=== PATIENT | female | born 1950 | race Caucasian/White ===

== ENCOUNTER 2020-06-22 22:09 | Inpatient (IN) | payer MEDICARE ==
[~2020-06-22] VITALS: Ht 152.4 cm; Wt 75.3 kg
[2020-06-22] MEDS ORDERED: METF-960 PO (22:18)
[2020-06-22] MEDS ORDERED: ACETAMINOPHEN 500 MG TABLET ONE (22:33)
[2020-06-22 22:59] LABS: COVID AG,FIA SOURCE NASOPHARYNGEAL
[2020-06-22] MEDS ORDERED: ACETAMINOPHEN 500 MG TABLET PO ONE (23:00)
[2020-06-22 23:10] LABS: BASOPHILS % (AUTO) 0.2 % (0.0-2.0); EOSINOPHILS % (AUTO) 0.1 % (1.0-6.0); HEMATOCRIT 38.8 % (36-46); HEMOGLOBIN 12.9 g/dL (12.0-16.0); LYMPHOCYTES # (AUTO) 1.2 K/uL (1.0-4.8); LYMPHOCYTES % (AUTO) 22.6 % (22.0-44.0); MEAN CORPUSCULAR HGB CONC 33.3 G/dL (31.0-37.0); MEAN CORPUSCULAR VOLUME 90 fL (80-100); MONOCYTES # (AUTO) 0.6 K/uL (0.1-1.0); MONOCYTES % (AUTO) 11.1 % (2.0-9.0); NEUTROPHILS # (AUTO) 3.5 K/uL (1.8-7.7); PLATELET COUNT (AUTO) 124 K/uL (150-450); RED BLOOD CELL COUNT(AUTO) 4.31 MIL/uL (4.00-5.20); RED CELL DISTRIBUTION WIDTH 13.4 % (11.5-14.5)
[2020-06-22 23:28] LABS: LACTIC ACID 1.5 mmol/L (0.4-2.0)
[2020-06-22 23:49] LABS: D-DIMER 0.78 mg/L FEU (0.00-0.50); PROTHROMBIN TIME 10.8 SEC (9.4-11.6)
[2020-06-23] MEDS ORDERED: PIPERACILLIN SODIUM/TAZOBACTAM 2.25 GM in DEXTROSE 5%-WATER 50 ML IV SCH (00:15)
[2020-06-23 00:20] LABS: ANION GAP 12 mmol/L (8-16); CALCIUM, TOTAL 8.6 mg/dL (8.8-10.5); CARBON DIOXIDE 25 mmol/L (22-29); CHLORIDE 107 mmol/L (98-107); CREATININE 0.72 mg/dL (0.60-1.30); GLOMERULAR FILTR. RATE CALC > 60 mL/min (>60); GLUCOSE,RANDOM 154 mg/dL (70-110); POTASSIUM 3.6 mmol/L (3.5-5.1); SODIUM SERUM 144 mmol/L (136-145); UREA NITROGEN, BLOOD 15 mg/dL (7-18)
[2020-06-23 00:25] LABS: ALANINE AMINOTRANSFERASE 37 U/L (12-78); ALBUMIN 2.9 g/dL (3.4-5.0); ALKALINE PHOSPHATASE 62 U/L (46-116); ASPARTATE AMINOTRANSFERASE 43 U/L (15-37); BILIRUBIN,TOTAL 0.4 mg/dL (0.1-1.0); LIPASE 105 U/L (73-393); TOTAL PROTEIN, SERUM 7.4 g/dL (6.4-8.2)
[2020-06-23 00:50] LABS: FERRITIN 998 ng/mL (8-252); LACTATE DEHYDROGENASE 375 U/L (81-234)
[2020-06-23] MEDS ORDERED: VANCOMYCIN HCL 1.25 GM in DEXTROSE 5%-WATER 250 ML IV ONE (01:00)
[2020-06-23 05:38] VITALS: BP 139/69
[2020-06-23] MEDS ORDERED: PIPERACILLIN/TAZO 3.375 GM/D5W 50 ML IV SCH (06:00)
[2020-06-23 06:35] VITALS: BP 134/69
[2020-06-23 07:30] VITALS: BP 120/72
[2020-06-23] MEDS ORDERED: SODIUM CHLORIDE 0.9% 500 ML IV ONE (07:56)
[2020-06-23] MEDS ORDERED: VANCOMYCIN HCL 1.25 GM in DEXTROSE 5%-WATER 250 ML IV SCH (08:00)
[2020-06-23 09:22] LABS: BASOPHILS % (AUTO) 0.3 % (0.0-2.0); EOSINOPHILS % (AUTO) 0 % (1.0-6.0); HEMATOCRIT 39.6 % (36-46); HEMOGLOBIN 13.2 g/dL (12.0-16.0); LYMPHOCYTES # (AUTO) 1.6 K/uL (1.0-4.8); LYMPHOCYTES % (AUTO) 24.2 % (22.0-44.0); MEAN CORPUSCULAR HEMOGLOBIN 30.5 pg (26.0-34.0); MEAN CORPUSCULAR HGB CONC 33.4 G/dL (31.0-37.0); MEAN CORPUSCULAR VOLUME 92 fL (80-100); MONOCYTES # (AUTO) 0.5 K/uL (0.1-1.0); MONOCYTES % (AUTO) 7.8 % (2.0-9.0); NEUTROPHILS # (AUTO) 4.6 K/uL (1.8-7.7); NEUTROPHILS % (AUTO) 67.7 % (40.0-70.0); PLATELET COUNT (AUTO) 134 K/uL (150-450); RED BLOOD CELL COUNT(AUTO) 4.33 MIL/uL (4.00-5.20); RED CELL DISTRIBUTION WIDTH 13.7 % (11.5-14.5)
[2020-06-23 09:56] LABS: ALANINE AMINOTRANSFERASE 35 U/L (12-78); ALBUMIN 2.7 g/dL (3.4-5.0); ALKALINE PHOSPHATASE 56 U/L (46-116); ANION GAP 7 mmol/L (8-16); ASPARTATE AMINOTRANSFERASE 38 U/L (15-37); BILIRUBIN,TOTAL 0.5 mg/dL (0.1-1.0); C-REACTIVE PROTEIN QUANT 5.35 mg/dL (0.00-0.30); CALCIUM, TOTAL 8.1 mg/dL (8.8-10.5); CARBON DIOXIDE 30 mmol/L (22-29); CHLORIDE 103 mmol/L (98-107); CREATININE 0.74 mg/dL (0.60-1.30); FERRITIN 983 ng/mL (8-252); GLOMERULAR FILTR. RATE CALC > 60 mL/min (>60); GLUCOSE,RANDOM 156 mg/dL (70-110); POTASSIUM 3.9 mmol/L (3.5-5.1); SODIUM SERUM 140 mmol/L (136-145); TOTAL PROTEIN, SERUM 7.1 g/dL (6.4-8.2); UREA NITROGEN, BLOOD 13 mg/dL (7-18)
[2020-06-23 11:30] VITALS: BP 118/71
[2020-06-23] MEDS ORDERED: ACETAMINOPHEN 325 MG TABLET PO ONE (12:15)
[2020-06-23] MEDS ORDERED: ONDANSETRON HCL 4 MG/2 ML VIAL IVP PRN (14:15)
[2020-06-23] MEDS ORDERED: MAGNESIUM HYDROXIDE SUSPENSION 30 ML UDCUP PO PRN (14:15)
[2020-06-23] MEDS ORDERED: DEXTROSE 50%-WATER 25 GM/50 ML SYRINGE IVP PRN (14:15)
[2020-06-23] MEDS ORDERED: ZOLPIDEM TARTRATE 5 MG TABLET PO PRN (14:15)
[2020-06-23] MEDS ORDERED: BISACODYL 10 MG RECTAL RECTAL SUPPOSITORY PR PRN (14:15)
[2020-06-23] MEDS ORDERED: DEXAMETHASONE 4 MG TABLET PO ONE (14:15)
[2020-06-23] MEDS ORDERED: REMDESIVIR 200 MG in SODIUM CHLORIDE 0.9% 250 ML IV ONE (15:00)
[2020-06-23 15:30] VITALS: BP 122/70
[2020-06-23] MEDS: ACETAMINOPHEN 325 MG TABLET PO PRN (16:54)
[2020-06-23] MEDS: HEPARIN SODIUM,PORCINE 5,000 UNITS/ML VIAL SQ SCH (16:58)
[2020-06-23] MEDS: INSULIN LISPRO 100 UNITS/ML SQ PRN ×2 (17:15→20:32)
[2020-06-23] MEDS: CefTRIAXone 1 GM/DEXTROSE 50 ML IV SCH (17:58)
[2020-06-23] MEDS: AZITHROMYCIN 500 MG/NS 250 ML IV SCH (18:40)
[2020-06-23 20:20] VITALS: BP 105/66
[2020-06-24 00:15] VITALS: BP 94/55
[2020-06-24] MEDS: HEPARIN SODIUM,PORCINE 5,000 UNITS/ML VIAL SQ SCH ×4 (01:49→23:34)
[2020-06-24] MEDS: INSULIN LISPRO 100 UNITS/ML SQ PRN ×4 (05:33→20:34)
[2020-06-24 06:16] LABS: EOSINOPHILS % (AUTO) 0 % (1.0-6.0); HEMATOCRIT 37.7 % (36-46); HEMOGLOBIN 12.6 g/dL (12.0-16.0); LYMPHOCYTES # (AUTO) 0.9 K/uL (1.0-4.8); LYMPHOCYTES % (AUTO) 10.2 % (22.0-44.0); MEAN CORPUSCULAR HEMOGLOBIN 30.6 pg (26.0-34.0); MEAN CORPUSCULAR HGB CONC 33.5 G/dL (31.0-37.0); MEAN CORPUSCULAR VOLUME 91 fL (80-100); MONOCYTES # (AUTO) 0.4 K/uL (0.1-1.0); MONOCYTES % (AUTO) 4.7 % (2.0-9.0); NEUTROPHILS # (AUTO) 7.7 K/uL (1.8-7.7); NEUTROPHILS % (AUTO) 85.1 % (40.0-70.0); PLATELET COUNT (AUTO) 139 K/uL (150-450); RED BLOOD CELL COUNT(AUTO) 4.13 MIL/uL (4.00-5.20); RED CELL DISTRIBUTION WIDTH 13.6 % (11.5-14.5)
[2020-06-24 07:20] LABS: ALANINE AMINOTRANSFERASE 27 U/L (12-78); ALBUMIN 2.3 g/dL (3.4-5.0); ALKALINE PHOSPHATASE 49 U/L (46-116); ANION GAP 9 mmol/L (8-16); ASPARTATE AMINOTRANSFERASE 33 U/L (15-37); BILIRUBIN,TOTAL 0.4 mg/dL (0.1-1.0); C-REACTIVE PROTEIN QUANT 9.13 mg/dL (0.00-0.30); CALCIUM, TOTAL 8.3 mg/dL (8.8-10.5); CARBON DIOXIDE 27 mmol/L (22-29); CHLORIDE 103 mmol/L (98-107); FERRITIN 883 ng/mL (8-252); GLOMERULAR FILTR. RATE CALC > 60 mL/min (>60); GLUCOSE,RANDOM 202 mg/dL (70-110); POTASSIUM 3.6 mmol/L (3.5-5.1); SODIUM SERUM 139 mmol/L (136-145); TOTAL PROTEIN, SERUM 6.4 g/dL (6.4-8.2); UREA NITROGEN, BLOOD 17 mg/dL (7-18)
[2020-06-24 08:29] VITALS: BP 99/60
[2020-06-24] MEDS: DEXAMETHASONE 4 MG TABLET PO SCH (09:06)
[2020-06-24 11:29] VITALS: BP 101/60
[2020-06-24] MEDS: REMDESIVIR 100 MG in SODIUM CHLORIDE 0.9% 250 ML IV SCH (14:38)
[2020-06-24] MEDS: CefTRIAXone 1 GM/DEXTROSE 50 ML IV SCH (15:51)
[2020-06-24 16:15] VITALS: BP 117/63
[2020-06-24] MEDS: AZITHROMYCIN 500 MG/NS 250 ML IV SCH (16:29)
[2020-06-24 19:53] VITALS: BP 114/61
[2020-06-24 20:50] LABS: GLUCOMETER DEV NAME(LOC) 5N.1B; GLUCOSE,POINT OF CARE 147 MG/DL (70-110)
[2020-06-24 20:51] LABS: GLUCOMETER DEV NAME(LOC) 5N.1B; GLUCOSE,POINT OF CARE 201 MG/DL (70-110)
[2020-06-24 20:51] LABS: GLUCOMETER DEV NAME(LOC) 5N.1B; GLUCOSE,POINT OF CARE 186 MG/DL (70-110)
[2020-06-24 20:51] LABS: GLUCOMETER DEV NAME(LOC) 5N.1B; GLUCOSE,POINT OF CARE 203 MG/DL (70-110)
[2020-06-24 20:51] LABS: GLUCOMETER DEV NAME(LOC) 5N.1B; GLUCOSE,POINT OF CARE 215 MG/DL (70-110)
[2020-06-24 20:51] LABS: GLUCOMETER DEV NAME(LOC) 5N.1B; GLUCOSE,POINT OF CARE 161 MG/DL (70-110)
[2020-06-25] VITALS (7 sets, daily range): BP systolic 102–135; BP diastolic 62–81
[2020-06-25 03:52] LABS: GLUCOMETER DEV NAME(LOC) 5N.3; GLUCOSE,POINT OF CARE 162 MG/DL (70-110)
[2020-06-25 03:52] LABS: GLUCOMETER DEV NAME(LOC) 5N.3; GLUCOSE,POINT OF CARE 196 MG/DL (70-110)
[2020-06-25 05:40] LABS: GLUCOMETER DEV NAME(LOC) 5N.3; GLUCOSE,POINT OF CARE 211 MG/DL (70-110)
[2020-06-25] MEDS: INSULIN LISPRO 100 UNITS/ML SQ PRN ×3 (06:03→21:39)
[2020-06-25 06:06] LABS: BASOPHILS % (AUTO) 0.1 % (0.0-2.0); EOSINOPHILS % (AUTO) 0 % (1.0-6.0); HEMATOCRIT 38.7 % (36-46); HEMOGLOBIN 12.9 g/dL (12.0-16.0); LYMPHOCYTES # (AUTO) 1.3 K/uL (1.0-4.8); LYMPHOCYTES % (AUTO) 12.9 % (22.0-44.0); MEAN CORPUSCULAR HEMOGLOBIN 30.2 pg (26.0-34.0); MEAN CORPUSCULAR HGB CONC 33.3 G/dL (31.0-37.0); MEAN CORPUSCULAR VOLUME 91 fL (80-100); MONOCYTES # (AUTO) 0.9 K/uL (0.1-1.0); MONOCYTES % (AUTO) 9.1 % (2.0-9.0); NEUTROPHILS # (AUTO) 7.7 K/uL (1.8-7.7); NEUTROPHILS % (AUTO) 77.9 % (40.0-70.0); PLATELET COUNT (AUTO) 190 K/uL (150-450); RED BLOOD CELL COUNT(AUTO) 4.27 MIL/uL (4.00-5.20); RED CELL DISTRIBUTION WIDTH 13.7 % (11.5-14.5)
[2020-06-25 07:10] LABS: ALANINE AMINOTRANSFERASE 25 U/L (12-78); ALBUMIN 2.2 g/dL (3.4-5.0); ALKALINE PHOSPHATASE 50 U/L (46-116); ANION GAP 8 mmol/L (8-16); ASPARTATE AMINOTRANSFERASE 35 U/L (15-37); BILIRUBIN,TOTAL 0.4 mg/dL (0.1-1.0); C-REACTIVE PROTEIN QUANT 5.03 mg/dL (0.00-0.30); CALCIUM, TOTAL 8.7 mg/dL (8.8-10.5); CARBON DIOXIDE 29 mmol/L (22-29); CHLORIDE 106 mmol/L (98-107); CREATININE 0.82 mg/dL (0.60-1.30); GLOMERULAR FILTR. RATE CALC > 60 mL/min (>60); GLUCOSE,RANDOM 215 mg/dL (70-110); POTASSIUM 3.6 mmol/L (3.5-5.1); SODIUM SERUM 143 mmol/L (136-145); TOTAL PROTEIN, SERUM 6.2 g/dL (6.4-8.2); UREA NITROGEN, BLOOD 25 mg/dL (7-18)
[2020-06-25 07:44] LABS: FERRITIN 1235 ng/mL (8-252)
[2020-06-25] MEDS: HEPARIN SODIUM,PORCINE 5,000 UNITS/ML VIAL SQ SCH ×3 (08:00→23:59)
[2020-06-25] MEDS: DEXAMETHASONE 4 MG TABLET PO SCH (10:02)
[2020-06-25] MEDS: REMDESIVIR 100 MG in SODIUM CHLORIDE 0.9% 250 ML IV SCH (15:11)
[2020-06-25] MEDS: CefTRIAXone 1 GM/DEXTROSE 50 ML IV SCH (16:54)
[2020-06-25] MEDS: AZITHROMYCIN 500 MG/NS 250 ML IV SCH (17:35)
[2020-06-25] MEDS ORDERED: BENZONATATE 100 MG CAPSULE PO PRN (21:00)
[2020-06-25] MEDS: GuaiFENesin/CODEINE [SUGAR FREE] 200-20MG/10 ML SYRUP UDCUP PO PRN (21:36)
[2020-06-25 23:28] LABS: GLUCOMETER DEV NAME(LOC) 5N.3; GLUCOSE,POINT OF CARE 201 MG/DL (70-110)
[2020-06-25 23:29] LABS: GLUCOMETER DEV NAME(LOC) 5N.3; GLUCOSE,POINT OF CARE 232 MG/DL (70-110)
[2020-06-25 23:29] LABS: GLUCOMETER DEV NAME(LOC) 5N.1B; GLUCOSE,POINT OF CARE 227 MG/DL (70-110)
[2020-06-26] VITALS (10 sets, daily range): BP systolic 127–147; BP diastolic 62–86
[2020-06-26 05:48] LABS: EOSINOPHILS % (AUTO) 0 % (1.0-6.0); HEMATOCRIT 42.2 % (36-46); HEMOGLOBIN 13.9 g/dL (12.0-16.0); LYMPHOCYTES # (AUTO) 1.4 K/uL (1.0-4.8); LYMPHOCYTES % (AUTO) 12.8 % (22.0-44.0); MEAN CORPUSCULAR HEMOGLOBIN 30.2 pg (26.0-34.0); MEAN CORPUSCULAR HGB CONC 32.8 G/dL (31.0-37.0); MEAN CORPUSCULAR VOLUME 92 fL (80-100); MONOCYTES # (AUTO) 1.1 K/uL (0.1-1.0); MONOCYTES % (AUTO) 10.2 % (2.0-9.0); NEUTROPHILS # (AUTO) 8.3 K/uL (1.8-7.7); PLATELET COUNT (AUTO) 247 K/uL (150-450); RED CELL DISTRIBUTION WIDTH 13.8 % (11.5-14.5)
[2020-06-26 06:23] LABS: ALANINE AMINOTRANSFERASE 29 U/L (12-78); ALBUMIN 2.3 g/dL (3.4-5.0); ALKALINE PHOSPHATASE 56 U/L (46-116); ANION GAP 10 mmol/L (8-16); ASPARTATE AMINOTRANSFERASE 38 U/L (15-37); BILIRUBIN,TOTAL 0.5 mg/dL (0.1-1.0); C-REACTIVE PROTEIN QUANT 2.69 mg/dL (0.00-0.30); CALCIUM, TOTAL 8.7 mg/dL (8.8-10.5); CARBON DIOXIDE 27 mmol/L (22-29); CHLORIDE 110 mmol/L (98-107); CREATININE 0.72 mg/dL (0.60-1.30); FERRITIN 973 ng/mL (8-252); GLOMERULAR FILTR. RATE CALC > 60 mL/min (>60); GLUCOSE,RANDOM 177 mg/dL (70-110); POTASSIUM 3.6 mmol/L (3.5-5.1); SODIUM SERUM 147 mmol/L (136-145); TOTAL PROTEIN, SERUM 6.5 g/dL (6.4-8.2); UREA NITROGEN, BLOOD 24 mg/dL (7-18)
[2020-06-26 07:04] LABS: GLUCOMETER DEV NAME(LOC) 5N.1B; GLUCOSE,POINT OF CARE 173 MG/DL (70-110)
[2020-06-26] MEDS: DEXAMETHASONE 4 MG TABLET PO SCH (07:37)
[2020-06-26] MEDS: GuaiFENesin/CODEINE [SUGAR FREE] 200-20MG/10 ML SYRUP UDCUP PO PRN (07:37)
[2020-06-26] MEDS: HEPARIN SODIUM,PORCINE 5,000 UNITS/ML VIAL SQ SCH ×3 (07:37→23:29)
[2020-06-26 09:06] LABS: ABG A-A DIFF O2 617.5 mmHg (10-20.0); ABG BASE EXCESS 3.6 mmol/L (-2.0-3.0); ABG CARBOXYHEMOGLOBIN 0.8 % (0.0-1.5); ABG HCO3 27.3 mmol/L (22.0-26.0); ABG METHEMOGLOBIN 0.3 % (0.0-1.5); ABG OXYGEN CONTENT 18.3 mL/dL (15.0-23.0); ABG OXYGEN SATURATION 91.1 % (95.0-98.0); ABG OXYHEMOGLOBIN 90.1 % (94.0-100.0); ABG PCO2 40 mmHg (35-45); ABG PH 7.453 (7.35-7.450); ABG TOTAL HEMOGLOBIN 14.5 G/dL (12.0-18.0); PO2, ARTERIAL BG 55.4 mmHg (75.0-83.0); SOURCE, BLOOD GAS ARTERIAL; TEMPERATURE, FAHRENHEIT, BG 98.5 FAHREN (96.0-98.6)
[2020-06-26 09:07] LABS: O2 DEVICE,BLOOD GAS CANNULA (ROOM AIR); SITE, BLOOD GAS LFT RADIAL
[2020-06-26 13:58] LABS: GLUCOMETER DEV NAME(LOC) 5N.1B; GLUCOSE,POINT OF CARE 203 MG/DL (70-110)
[2020-06-26] MEDS: REMDESIVIR 100 MG in SODIUM CHLORIDE 0.9% 250 ML IV SCH (15:29)
[2020-06-26] MEDS: CefTRIAXone 1 GM/DEXTROSE 50 ML IV SCH (16:35)
[2020-06-26] MEDS: INSULIN LISPRO 100 UNITS/ML SQ PRN ×2 (17:13→20:42)
[2020-06-26] MEDS: AZITHROMYCIN 500 MG/NS 250 ML IV SCH (17:35)
[2020-06-26] MEDS ORDERED: LOSA25TA21 PO (19:07)
[2020-06-26] MEDS ORDERED: ATOR20TA65 PO (19:07)
[2020-06-26] MEDS: ASCORBIC ACID 500 MG TABLET PO SCH (20:27)
[2020-06-26] MEDS: CHOLECALCIFEROL (VIT D3) 1,000 UNITS [25 MCG] TABLET PO SCH (20:27)
[2020-06-26] MEDS: ZINC SULFATE 220 MG CAPSULE PO SCH (20:27)
[2020-06-26] MEDS: FAMOTIDINE 10 MG/ML 2 ML VIAL IVP SCH (20:28)
[2020-06-26 20:55] LABS: GLUCOMETER DEV NAME(LOC) AHU.; GLUCOSE,POINT OF CARE 261 MG/DL (70-110)
[2020-06-27] VITALS (9 sets, daily range): BP systolic 125–140; BP diastolic 50–86
[2020-06-27] MEDS ORDERED: INFLUENZA VIRUS VACCINE QVS 2020-21 (6MO+)/PF 60 MCG/0.5 ML SYRINGE IM ONE (03:00)
[2020-06-27] MEDS: INSULIN LISPRO 100 UNITS/ML SQ PRN ×4 (06:28→23:00)
[2020-06-27 06:38] LABS: GLUCOMETER DEV NAME(LOC) AHU.; GLUCOSE,POINT OF CARE 232 MG/DL (70-110)
[2020-06-27 06:47] LABS: ALANINE AMINOTRANSFERASE 30 U/L (12-78); ALBUMIN 2.2 g/dL (3.4-5.0); ALKALINE PHOSPHATASE 60 U/L (46-116); ANION GAP 10 mmol/L (8-16); ASPARTATE AMINOTRANSFERASE 32 U/L (15-37); CALCIUM, TOTAL 8.9 mg/dL (8.8-10.5); CARBON DIOXIDE 26 mmol/L (22-29); CHLORIDE 109 mmol/L (98-107); CREATININE 0.65 mg/dL (0.60-1.30); GLOMERULAR FILTR. RATE CALC > 60 mL/min (>60); GLUCOSE,RANDOM 251 mg/dL (70-110); POTASSIUM 3.8 mmol/L (3.5-5.1); SODIUM SERUM 145 mmol/L (136-145); TOTAL PROTEIN, SERUM 6.6 g/dL (6.4-8.2); UREA NITROGEN, BLOOD 28 mg/dL (7-18)
[2020-06-27 06:57] LABS: BILIRUBIN,TOTAL 0.6 mg/dL (0.1-1.0)
[2020-06-27 07:21] LABS: GLUCOMETER DEV NAME(LOC) 5N.1B; GLUCOSE,POINT OF CARE 270 MG/DL (70-110)
[2020-06-27] MEDS: ZINC SULFATE 220 MG CAPSULE PO SCH ×2 (08:00→20:52)
[2020-06-27] MEDS: HEPARIN SODIUM,PORCINE 5,000 UNITS/ML VIAL SQ SCH ×2 (08:00→16:09)
[2020-06-27] MEDS: FAMOTIDINE 10 MG/ML 2 ML VIAL IVP SCH ×2 (08:00→20:53)
[2020-06-27] MEDS: ASCORBIC ACID 500 MG TABLET PO SCH ×2 (08:01→20:52)
[2020-06-27] MEDS: CHOLECALCIFEROL (VIT D3) 1,000 UNITS [25 MCG] TABLET PO SCH (08:01)
[2020-06-27] MEDS: DEXAMETHASONE 4 MG TABLET PO SCH (08:01)
[2020-06-27 12:27] LABS: GLUCOMETER DEV NAME(LOC) AHU.; GLUCOSE,POINT OF CARE 251 MG/DL (70-110)
[2020-06-27] MEDS: DEXMEDETOMIDINE HCL 400 MCG in SODIUM CHLORIDE 0.9% 96 ML IV PRN (12:28)
[2020-06-27] MEDS: REMDESIVIR 100 MG in SODIUM CHLORIDE 0.9% 250 ML IV SCH (15:10)
[2020-06-27] MEDS: CefTRIAXone 1 GM/DEXTROSE 50 ML IV SCH (16:08)
[2020-06-27] MEDS: AZITHROMYCIN 500 MG/NS 250 ML IV SCH (17:15)
[2020-06-27 18:48] LABS: GLUCOMETER DEV NAME(LOC) AHU.; GLUCOSE,POINT OF CARE 290 MG/DL (70-110)
[2020-06-27 22:34] LABS: GLUCOMETER DEV NAME(LOC) AHU.; GLUCOSE,POINT OF CARE 237 MG/DL (70-110)
[2020-06-28] VITALS (17 sets, daily range): BP systolic 116–158; BP diastolic 48–75
[2020-06-28] MEDS: HEPARIN SODIUM,PORCINE 5,000 UNITS/ML VIAL SQ SCH ×3 (00:16→17:46)
[2020-06-28 06:37] LABS: GLUCOMETER DEV NAME(LOC) AHU.; GLUCOSE,POINT OF CARE 201 MG/DL (70-110)
[2020-06-28] MEDS: INSULIN LISPRO 100 UNITS/ML SQ PRN ×3 (06:42→17:59)
[2020-06-28 07:47] LABS: ABG A-A DIFF O2 629.7 mmHg (10-20.0); ABG BASE EXCESS -0.5 mmol/L (-2.0-3.0); ABG CARBOXYHEMOGLOBIN 0.4 % (0.0-1.5); ABG HCO3 24.5 mmol/L (22.0-26.0); ABG METHEMOGLOBIN 0.2 % (0.0-1.5); ABG OXYGEN CONTENT 18.6 mL/dL (15.0-23.0); ABG OXYGEN SATURATION 87.7 % (95.0-98.0); ABG OXYHEMOGLOBIN 87.2 % (94.0-100.0); ABG PCO2 33 mmHg (35-45); ABG PH 7.469 (7.35-7.450); ABG TOTAL HEMOGLOBIN 15.2 G/dL (12.0-18.0); PO2, ARTERIAL BG 50.6 mmHg (75.0-83.0); SOURCE, BLOOD GAS ARTERIAL; TEMPERATURE, FAHRENHEIT, BG 98.6 FAHREN (96.0-98.6)
[2020-06-28 07:48] LABS: SITE, BLOOD GAS LFT RADIAL
[2020-06-28 07:49] LABS: O2 DEVICE,BLOOD GAS HI FL CANNULA (ROOM AIR)
[2020-06-28] MEDS: DEXAMETHASONE 4 MG TABLET PO SCH (08:18)
[2020-06-28] MEDS: FAMOTIDINE 10 MG/ML 2 ML VIAL IVP SCH ×2 (08:18→22:02)
[2020-06-28] MEDS: ZINC SULFATE 220 MG CAPSULE PO SCH ×2 (08:19→22:03)
[2020-06-28] MEDS: MULTIVITAMINS WITH MINERALS, THERAPEUTIC TABLET PO SCH (08:19)
[2020-06-28] MEDS: CHOLECALCIFEROL (VIT D3) 1,000 UNITS [25 MCG] TABLET PO SCH (08:19)
[2020-06-28] MEDS: ASCORBIC ACID 500 MG TABLET PO SCH ×2 (08:20→22:03)
[2020-06-28 10:42] LABS: BASOPHILS % (AUTO) 0.3 % (0.0-2.0); EOSINOPHILS % (AUTO) 0 % (1.0-6.0); HEMATOCRIT 42.4 % (36-46); HEMOGLOBIN 14.1 g/dL (12.0-16.0); LYMPHOCYTES # (AUTO) 0.6 K/uL (1.0-4.8); LYMPHOCYTES % (AUTO) 3.6 % (22.0-44.0); MEAN CORPUSCULAR HEMOGLOBIN 30.1 pg (26.0-34.0); MEAN CORPUSCULAR HGB CONC 33.2 G/dL (31.0-37.0); MEAN CORPUSCULAR VOLUME 91 fL (80-100); MONOCYTES # (AUTO) 1.3 K/uL (0.1-1.0); MONOCYTES % (AUTO) 8.1 % (2.0-9.0); NEUTROPHILS # (AUTO) 14.1 K/uL (1.8-7.7); PLATELET COUNT (AUTO) 257 K/uL (150-450); RED BLOOD CELL COUNT(AUTO) 4.68 MIL/uL (4.00-5.20); RED CELL DISTRIBUTION WIDTH 14.1 % (11.5-14.5)
[2020-06-28 11:00] LABS: ANION GAP 8 mmol/L (8-16); CALCIUM, TOTAL 9.3 mg/dL (8.8-10.5); CARBON DIOXIDE 27 mmol/L (22-29); CHLORIDE 114 mmol/L (98-107); GLOMERULAR FILTR. RATE CALC > 60 mL/min (>60); GLUCOSE,RANDOM 186 mg/dL (70-110); POTASSIUM 3.8 mmol/L (3.5-5.1); SODIUM SERUM 149 mmol/L (136-145); UREA NITROGEN, BLOOD 25 mg/dL (7-18)
[2020-06-28 11:04] LABS: ALANINE AMINOTRANSFERASE 27 U/L (12-78); ALBUMIN 2.2 g/dL (3.4-5.0); ALKALINE PHOSPHATASE 72 U/L (46-116); ASPARTATE AMINOTRANSFERASE 42 U/L (15-37); BILIRUBIN,TOTAL 0.8 mg/dL (0.1-1.0); TOTAL PROTEIN, SERUM 6.6 g/dL (6.4-8.2)
[2020-06-28] MEDS: DEXMEDETOMIDINE HCL 400 MCG in SODIUM CHLORIDE 0.9% 96 ML IV PRN (12:29)
[2020-06-28 12:55] LABS: GLUCOMETER DEV NAME(LOC) AHU.; GLUCOSE,POINT OF CARE 213 MG/DL (70-110)
[2020-06-28] MEDS: CefTRIAXone 1 GM/DEXTROSE 50 ML IV SCH (17:45)
[2020-06-28] MEDS: AZITHROMYCIN 500 MG/NS 250 ML IV SCH (17:46)
[2020-06-28 17:47] LABS: GLUCOMETER DEV NAME(LOC) AHU.; GLUCOSE,POINT OF CARE 305 MG/DL (70-110)
[2020-06-28 22:08] LABS: GLUCOMETER DEV NAME(LOC) AHU.; GLUCOSE,POINT OF CARE 237 MG/DL (70-110)
[2020-06-28] MEDS ORDERED: RAPID SEQUENCE KIT [RSI] 1 EACH KIT MISC ONE (22:33)
[2020-06-28] MEDS: PROPOFOL 1000 MG/ISO-OSM 100 ML IV PRN (23:37)
[2020-06-29] VITALS (22 sets, daily range): BP systolic 110–181; BP diastolic 48–92
[2020-06-29] MEDS: HEPARIN SODIUM,PORCINE 5,000 UNITS/ML VIAL SQ SCH ×4 (00:47→23:45)
[2020-06-29] MEDS: INSULIN LISPRO 100 UNITS/ML SQ PRN ×4 (00:51→18:39)
[2020-06-29 01:11] LABS: GLUCOMETER DEV NAME(LOC) AHU.; GLUCOSE,POINT OF CARE 240 MG/DL (70-110)
[2020-06-29 01:12] LABS: ABG A-A DIFF O2 291.5 mmHg (10-20.0); ABG CARBOXYHEMOGLOBIN 0.2 % (0.0-1.5); ABG HCO3 20.2 mmol/L (22.0-26.0); ABG METHEMOGLOBIN 0.5 % (0.0-1.5); ABG OXYGEN CONTENT 23.1 mL/dL (15.0-23.0); ABG OXYGEN SATURATION 99.3 % (95.0-98.0); ABG OXYHEMOGLOBIN 98.6 % (94.0-100.0); ABG TOTAL HEMOGLOBIN 16.1 G/dL (12.0-18.0); PO2, ARTERIAL BG 318.5 mmHg (75.0-83.0); SOURCE, BLOOD GAS ARTERIAL; TEMPERATURE, FAHRENHEIT, BG 98.6 FAHREN (96.0-98.6)
[2020-06-29 01:13] LABS: ABG PCO2 103 mmHg (35-45); ABG PH 7.058 (7.35-7.450); O2 DEVICE,BLOOD GAS VENTILATOR (ROOM AIR); SITE, BLOOD GAS ARTERIAL LINE; VENT MODE, BG Press. Control Vent (ROOM AIR); VT, ABG 321 ml
[2020-06-29 01:14] LABS: PEEP,BG 10 cm H2O
[2020-06-29] MEDS: NOREPINEPHRINE 4 MG/D5%-WATER 250 ML IV PRN (03:20)
[2020-06-29 03:23] LABS: ABG A-A DIFF O2 606.9 mmHg (10-20.0); ABG BASE EXCESS -2.4 mmol/L (-2.0-3.0); ABG CARBOXYHEMOGLOBIN 0.9 % (0.0-1.5); ABG HCO3 22.5 mmol/L (22.0-26.0); ABG METHEMOGLOBIN 0.3 % (0.0-1.5); ABG OXYGEN SATURATION 92.9 % (95.0-98.0); ABG OXYHEMOGLOBIN 91.8 % (94.0-100.0); ABG PCO2 41 mmHg (35-45); ABG PH 7.368 (7.35-7.450); ABG TOTAL HEMOGLOBIN 14.7 G/dL (12.0-18.0); PO2, ARTERIAL BG 65.4 mmHg (75.0-83.0); SOURCE, BLOOD GAS ARTERIAL; TEMPERATURE, FAHRENHEIT, BG 98.6 FAHREN (96.0-98.6)
[2020-06-29 03:24] LABS: SITE, BLOOD GAS ARTERIAL LINE
[2020-06-29 03:25] LABS: O2 DEVICE,BLOOD GAS VENTILATOR (ROOM AIR); PEEP,BG 5 cm H2O; VENT MODE, BG Press. Control Vent (ROOM AIR); VT, ABG 368 ml
[2020-06-29] MEDS: FentaNYL CIT 1000MCG/D5%-WATER 100 ML IV PRN ×3 (03:35→21:03)
[2020-06-29 05:31] LABS: BASOPHILS % (AUTO) 0.9 % (0.0-2.0); EOSINOPHILS % (AUTO) 0 % (1.0-6.0); HEMATOCRIT 41.8 % (36-46); HEMOGLOBIN 13.6 g/dL (12.0-16.0); MEAN CORPUSCULAR HGB CONC 32.6 G/dL (31.0-37.0); MEAN CORPUSCULAR VOLUME 92 fL (80-100); MONOCYTES # (AUTO) 1.9 K/uL (0.1-1.0); MONOCYTES % (AUTO) 7.1 % (2.0-9.0); NEUTROPHILS # (AUTO) 23.2 K/uL (1.8-7.7); PLATELET COUNT (AUTO) 310 K/uL (150-450); RED BLOOD CELL COUNT(AUTO) 4.54 MIL/uL (4.00-5.20); RED CELL DISTRIBUTION WIDTH 13.9 % (11.5-14.5)
[2020-06-29 05:50] LABS: ALANINE AMINOTRANSFERASE 21 U/L (12-78); ALBUMIN 1.8 g/dL (3.4-5.0); ALKALINE PHOSPHATASE 65 U/L (46-116); ANION GAP 6 mmol/L (8-16); ASPARTATE AMINOTRANSFERASE 27 U/L (15-37); BILIRUBIN,TOTAL 0.7 mg/dL (0.1-1.0); CALCIUM, TOTAL 8.2 mg/dL (8.8-10.5); CARBON DIOXIDE 26 mmol/L (22-29); CHLORIDE 112 mmol/L (98-107); GLOMERULAR FILTR. RATE CALC > 60 mL/min (>60); GLUCOSE,RANDOM 259 mg/dL (70-110); POTASSIUM 4.2 mmol/L (3.5-5.1); SODIUM SERUM 144 mmol/L (136-145); TOTAL PROTEIN, SERUM 5.7 g/dL (6.4-8.2); UREA NITROGEN, BLOOD 30 mg/dL (7-18)
[2020-06-29 06:26] LABS: GLUCOMETER DEV NAME(LOC) AHU.; GLUCOSE,POINT OF CARE 252 MG/DL (70-110)
[2020-06-29] MEDS: PROPOFOL 1000 MG/ISO-OSM 100 ML IV PRN ×2 (06:49→16:51)
[2020-06-29] MEDS: DEXAMETHASONE 4 MG TABLET PO SCH (08:55)
[2020-06-29] MEDS: CHOLECALCIFEROL (VIT D3) 1,000 UNITS [25 MCG] TABLET PO SCH (08:55)
[2020-06-29] MEDS: ZINC SULFATE 220 MG CAPSULE PO SCH ×2 (08:56→21:02)
[2020-06-29] MEDS: ASCORBIC ACID 500 MG TABLET PO SCH ×2 (08:56→21:02)
[2020-06-29] MEDS: MULTIVITAMINS WITH MINERALS, THERAPEUTIC TABLET PO SCH (08:56)
[2020-06-29] MEDS: FAMOTIDINE 10 MG/ML 2 ML VIAL IVP SCH ×2 (08:56→20:19)
[2020-06-29] MEDS ORDERED: SODIUM CHLORIDE 0.9% 250 ML IV ONE (09:29)
[2020-06-29 11:04] LABS: ABG A-A DIFF O2 510.4 mmHg (10-20.0); ABG BASE EXCESS 1.2 mmol/L (-2.0-3.0); ABG CARBOXYHEMOGLOBIN 0.7 % (0.0-1.5); ABG HCO3 24.9 mmol/L (22.0-26.0); ABG METHEMOGLOBIN 0.3 % (0.0-1.5); ABG OXYGEN CONTENT 19.8 mL/dL (15.0-23.0); ABG OXYGEN SATURATION 95.9 % (95.0-98.0); ABG OXYHEMOGLOBIN 94.9 % (94.0-100.0); ABG PCO2 50 mmHg (35-45); ABG PH 7.349 (7.35-7.450); ABG TOTAL HEMOGLOBIN 14.8 G/dL (12.0-18.0); PO2, ARTERIAL BG 80.2 mmHg (75.0-83.0); SOURCE, BLOOD GAS ARTERIAL; TEMPERATURE, FAHRENHEIT, BG 98.6 FAHREN (96.0-98.6)
[2020-06-29 11:22] LABS: O2 DEVICE,BLOOD GAS VENTILATOR (ROOM AIR); SITE, BLOOD GAS ARTERIAL LINE
[2020-06-29 11:23] LABS: INSPIRATORY TIME, BG 0.8 SEC; PEEP,BG 8 cm H2O; SPONTANEOUS VT, BG 316 ml; VENT MODE, BG Press. Control Vent (ROOM AIR)
[2020-06-29 12:22] LABS: GLUCOMETER DEV NAME(LOC) AHU.; GLUCOSE,POINT OF CARE 236 MG/DL (70-110)
[2020-06-29] MEDS: CefTRIAXone 1 GM/DEXTROSE 50 ML IV SCH (16:34)
[2020-06-29] MEDS: AZITHROMYCIN 500 MG/NS 250 ML IV SCH (17:36)
[2020-06-29 17:57] LABS: GLUCOMETER DEV NAME(LOC) AHU.; GLUCOSE,POINT OF CARE 269 MG/DL (70-110)
[2020-06-29 23:19] LABS: GLUCOMETER DEV NAME(LOC) AHU.; GLUCOSE,POINT OF CARE 260 MG/DL (70-110)
[2020-06-30] VITALS (18 sets, daily range): BP systolic 111–161; BP diastolic 49–60
[2020-06-30] MEDS: PROPOFOL 1000 MG/ISO-OSM 100 ML IV PRN ×4 (00:57→22:50)
[2020-06-30] MEDS: INSULIN LISPRO 100 UNITS/ML SQ PRN ×5 (01:45→23:25)
[2020-06-30] MEDS: FentaNYL CIT 1000MCG/D5%-WATER 100 ML IV PRN ×3 (04:52→20:35)
[2020-06-30 06:08] LABS: GLUCOMETER DEV NAME(LOC) AHU.; GLUCOSE,POINT OF CARE 275 MG/DL (70-110)
[2020-06-30 06:09] LABS: BASOPHILS % (AUTO) 0.2 % (0.0-2.0); EOSINOPHILS % (AUTO) 0 % (1.0-6.0); HEMATOCRIT 39.1 % (36-46); LYMPHOCYTES # (AUTO) 0.9 K/uL (1.0-4.8); LYMPHOCYTES % (AUTO) 4.6 % (22.0-44.0); MEAN CORPUSCULAR HGB CONC 33.2 G/dL (31.0-37.0); MEAN CORPUSCULAR VOLUME 90 fL (80-100); MONOCYTES # (AUTO) 1.2 K/uL (0.1-1.0); MONOCYTES % (AUTO) 5.9 % (2.0-9.0); NEUTROPHILS # (AUTO) 17.8 K/uL (1.8-7.7); PLATELET COUNT (AUTO) 261 K/uL (150-450); RED BLOOD CELL COUNT(AUTO) 4.33 MIL/uL (4.00-5.20); RED CELL DISTRIBUTION WIDTH 13.6 % (11.5-14.5)
[2020-06-30 06:17] LABS: NEUTROPHILS % (AUTO) 89.3 % (40.0-70.0)
[2020-06-30 06:43] LABS: ALANINE AMINOTRANSFERASE 24 U/L (12-78); ALBUMIN 1.8 g/dL (3.4-5.0); ALKALINE PHOSPHATASE 67 U/L (46-116); ANION GAP 9 mmol/L (8-16); ASPARTATE AMINOTRANSFERASE 27 U/L (15-37); BILIRUBIN,TOTAL 0.7 mg/dL (0.1-1.0); C-REACTIVE PROTEIN QUANT 4.61 mg/dL (0.00-0.30); CALCIUM, TOTAL 7.2 mg/dL (8.8-10.5); CARBON DIOXIDE 27 mmol/L (22-29); CHLORIDE 108 mmol/L (98-107); GLOMERULAR FILTR. RATE CALC > 60 mL/min (>60); GLUCOSE,RANDOM 286 mg/dL (70-110); POTASSIUM 4.7 mmol/L (3.5-5.1); SODIUM SERUM 144 mmol/L (136-145); TOTAL PROTEIN, SERUM 5.7 g/dL (6.4-8.2); UREA NITROGEN, BLOOD 27 mg/dL (7-18)
[2020-06-30] MEDS: HEPARIN SODIUM,PORCINE 5,000 UNITS/ML VIAL SQ SCH ×2 (08:38→15:35)
[2020-06-30] MEDS: ZINC SULFATE 220 MG CAPSULE PO SCH ×2 (08:38→21:41)
[2020-06-30] MEDS: FAMOTIDINE 10 MG/ML 2 ML VIAL IVP SCH ×2 (08:38→21:41)
[2020-06-30] MEDS: CHOLECALCIFEROL (VIT D3) 1,000 UNITS [25 MCG] TABLET PO SCH (08:38)
[2020-06-30] MEDS: ASCORBIC ACID 500 MG TABLET PO SCH ×2 (08:38→21:41)
[2020-06-30] MEDS: MULTIVITAMINS WITH MINERALS, THERAPEUTIC TABLET PO SCH (08:38)
[2020-06-30] MEDS: DEXAMETHASONE 4 MG TABLET PO SCH (08:39)
[2020-06-30] MEDS: NOREPINEPHRINE 4 MG/D5%-WATER 250 ML IV PRN (10:06)
[2020-06-30 13:30] LABS: GLUCOMETER DEV NAME(LOC) AHU.; GLUCOSE,POINT OF CARE 302 MG/DL (70-110)
[2020-06-30] MEDS: CefTRIAXone 1 GM/DEXTROSE 50 ML IV SCH (15:36)
[2020-06-30] MEDS: AZITHROMYCIN 500 MG/NS 250 ML IV SCH (16:20)
[2020-06-30 17:41] LABS: GLUCOMETER DEV NAME(LOC) AHU.; GLUCOSE,POINT OF CARE 361 MG/DL (70-110)
[2020-06-30 22:25] LABS: APPEARANCE,URINE CLEAR (CLEAR); BILIRUBIN,URINE NEGATIVE (NEGATIVE); GLUCOSE, URINE (UA) 500 mg/dL (NEGATIVE); KETONES,URINE >=80 mg/dL (NEGATIVE); LEUKOCYTE ESTERASE ,URINE NEGATIVE (NEGATIVE); NITRATE,URINE NEGATIVE (NEGATIVE); OCCULT BLOOD,URINE LARGE (NEGATIVE); PROTEIN,URINE NEGATIVE (NEGATIVE); UROBILINOGEN,URINE 0.2 mg/dL (<=1.0)
[2020-06-30 22:44] LABS: WBC,URINE 0-2 /HPF (0-5)
[2020-06-30 22:45] LABS: BACTERIA,URINE Rare /HPF (None Seen); SQUAMOUS EPITHELIAL CELL,UR Few /LPF (None Seen)
[2020-06-30 23:34] LABS: GLUCOMETER DEV NAME(LOC) AHU.; GLUCOSE,POINT OF CARE 319 MG/DL (70-110)
[2020-07-01] VITALS (20 sets, daily range): BP systolic 102–170; BP diastolic 40–70
[2020-07-01] MEDS: HEPARIN SODIUM,PORCINE 5,000 UNITS/ML VIAL SQ SCH ×4 (00:58→23:26)
[2020-07-01] MEDS: PROPOFOL 1000 MG/ISO-OSM 100 ML IV PRN ×3 (05:51→20:40)
[2020-07-01 06:32] LABS: BASOPHILS % (AUTO) 0.2 % (0.0-2.0); EOSINOPHILS % (AUTO) 0.1 % (1.0-6.0); HEMATOCRIT 41.6 % (36-46); HEMOGLOBIN 13.7 g/dL (12.0-16.0); LYMPHOCYTES % (AUTO) 5.6 % (22.0-44.0); MEAN CORPUSCULAR HEMOGLOBIN 29.7 pg (26.0-34.0); MEAN CORPUSCULAR VOLUME 90 fL (80-100); MONOCYTES # (AUTO) 1.1 K/uL (0.1-1.0); MONOCYTES % (AUTO) 5.9 % (2.0-9.0); NEUTROPHILS # (AUTO) 16.5 K/uL (1.8-7.7); PLATELET COUNT (AUTO) 261 K/uL (150-450); RED BLOOD CELL COUNT(AUTO) 4.61 MIL/uL (4.00-5.20); RED CELL DISTRIBUTION WIDTH 13.8 % (11.5-14.5)
[2020-07-01 06:39] LABS: NEUTROPHILS % (AUTO) 88.2 % (40.0-70.0)
[2020-07-01] MEDS: INSULIN LISPRO 100 UNITS/ML SQ PRN ×4 (06:49→21:28)
[2020-07-01 06:53] LABS: GLUCOMETER DEV NAME(LOC) AHU.; GLUCOSE,POINT OF CARE 325 MG/DL (70-110)
[2020-07-01 06:55] LABS: ALANINE AMINOTRANSFERASE 25 U/L (12-78); ALBUMIN 1.6 g/dL (3.4-5.0); ALKALINE PHOSPHATASE 68 U/L (46-116); ANION GAP 12 mmol/L (8-16); ASPARTATE AMINOTRANSFERASE 28 U/L (15-37); BILIRUBIN,TOTAL 0.9 mg/dL (0.1-1.0); CALCIUM, TOTAL 9.1 mg/dL (8.8-10.5); CARBON DIOXIDE 24 mmol/L (22-29); CHLORIDE 106 mmol/L (98-107); GLOMERULAR FILTR. RATE CALC > 60 mL/min (>60); GLUCOSE,RANDOM 319 mg/dL (70-110); POTASSIUM 3.3 mmol/L (3.5-5.1); SODIUM SERUM 142 mmol/L (136-145); TOTAL PROTEIN, SERUM 5.7 g/dL (6.4-8.2); UREA NITROGEN, BLOOD 25 mg/dL (7-18)
[2020-07-01] MEDS: FAMOTIDINE 10 MG/ML 2 ML VIAL IVP SCH ×2 (08:33→20:39)
[2020-07-01] MEDS: MULTIVITAMINS WITH MINERALS, THERAPEUTIC TABLET PO SCH (08:34)
[2020-07-01] MEDS: ASCORBIC ACID 500 MG TABLET PO SCH ×2 (08:34→20:40)
[2020-07-01] MEDS: DEXAMETHASONE 4 MG TABLET PO SCH (08:35)
[2020-07-01] MEDS: CHOLECALCIFEROL (VIT D3) 1,000 UNITS [25 MCG] TABLET PO SCH (08:35)
[2020-07-01] MEDS: ZINC SULFATE 220 MG CAPSULE PO SCH ×2 (08:35→20:40)
[2020-07-01] MEDS: FentaNYL CIT 1000MCG/D5%-WATER 100 ML IV PRN ×2 (10:26→18:57)
[2020-07-01] MEDS: POTASSIUM CHL 10 MEQ/WATER 50 ML IV SCH ×4 (10:34→13:16)
[2020-07-01 15:04] LABS: ABG A-A DIFF O2 244.4 mmHg (10-20.0); ABG BASE EXCESS 0.6 mmol/L (-2.0-3.0); ABG HCO3 26.1 mmol/L (22.0-26.0); ABG METHEMOGLOBIN 0.3 % (0.0-1.5); ABG OXYGEN CONTENT 18.9 mL/dL (15.0-23.0); ABG OXYGEN SATURATION 91.8 % (95.0-98.0); ABG OXYHEMOGLOBIN 90.6 % (94.0-100.0); ABG PCO2 25 mmHg (35-45); ABG PH 7.581 (7.35-7.450); ABG TOTAL HEMOGLOBIN 14.9 G/dL (12.0-18.0); PO2, ARTERIAL BG 50.4 mmHg (75.0-83.0); SOURCE, BLOOD GAS ARTERIAL; TEMPERATURE, FAHRENHEIT, BG 95.6 FAHREN (96.0-98.6)
[2020-07-01 15:06] LABS: INSPIRATORY TIME, BG 0.8 SEC; O2 DEVICE,BLOOD GAS VENTILATOR (ROOM AIR); PEEP,BG 5 cm H2O; SITE, BLOOD GAS LFT RADIAL; SPONTANEOUS VT, BG 492 ml; VENT MODE, BG Press. Control Vent (ROOM AIR)
[2020-07-01] MEDS: CefTRIAXone 1 GM/DEXTROSE 50 ML IV SCH (16:06)
[2020-07-01] MEDS: AZITHROMYCIN 500 MG/NS 250 ML IV SCH (17:04)
[2020-07-01 17:14] LABS: GLUCOMETER DEV NAME(LOC) AHU.; GLUCOSE,POINT OF CARE 309 MG/DL (70-110)
[2020-07-01 18:43] LABS: GLUCOMETER DEV NAME(LOC) AHU.; GLUCOSE,POINT OF CARE 350 MG/DL (70-110)
[2020-07-01 22:22] LABS: GLUCOMETER DEV NAME(LOC) AHU.; GLUCOSE,POINT OF CARE 326 MG/DL (70-110)
[2020-07-02 00:30] VITALS: BP 117/55
[2020-07-02] MEDS: PROPOFOL 1000 MG/ISO-OSM 100 ML IV PRN ×4 (01:08→17:53)
[2020-07-02] MEDS: NOREPINEPHRINE 4 MG/D5%-WATER 250 ML IV PRN (01:21)
[2020-07-02] MEDS: FentaNYL CIT 1000MCG/D5%-WATER 100 ML IV PRN ×4 (02:20→22:20)
[2020-07-02 04:30] VITALS: BP 102/46
[2020-07-02 06:12] LABS: EOSINOPHILS % (AUTO) 0.1 % (1.0-6.0); HEMATOCRIT 39.8 % (36-46); HEMOGLOBIN 13.3 g/dL (12.0-16.0); LYMPHOCYTES # (AUTO) 0.9 K/uL (1.0-4.8); LYMPHOCYTES % (AUTO) 5.8 % (22.0-44.0); MEAN CORPUSCULAR HEMOGLOBIN 30.3 pg (26.0-34.0); MEAN CORPUSCULAR HGB CONC 33.4 G/dL (31.0-37.0); MEAN CORPUSCULAR VOLUME 91 fL (80-100); MONOCYTES # (AUTO) 0.9 K/uL (0.1-1.0); MONOCYTES % (AUTO) 5.4 % (2.0-9.0); NEUTROPHILS # (AUTO) 14.2 K/uL (1.8-7.7); PLATELET COUNT (AUTO) 218 K/uL (150-450); RED BLOOD CELL COUNT(AUTO) 4.38 MIL/uL (4.00-5.20); RED CELL DISTRIBUTION WIDTH 13.8 % (11.5-14.5)
[2020-07-02] MEDS: INSULIN LISPRO 100 UNITS/ML SQ PRN ×4 (06:28→22:24)
[2020-07-02 06:51] LABS: ALANINE AMINOTRANSFERASE 29 U/L (12-78); ALBUMIN 1.5 g/dL (3.4-5.0); ALKALINE PHOSPHATASE 66 U/L (46-116); ANION GAP 9 mmol/L (8-16); ASPARTATE AMINOTRANSFERASE 28 U/L (15-37); BILIRUBIN,TOTAL 0.6 mg/dL (0.1-1.0); CARBON DIOXIDE 26 mmol/L (22-29); CHLORIDE 104 mmol/L (98-107); CREATININE 0.48 mg/dL (0.60-1.30); GLOMERULAR FILTR. RATE CALC > 60 mL/min (>60); GLUCOSE,RANDOM 363 mg/dL (70-110); SODIUM SERUM 139 mmol/L (136-145); TOTAL PROTEIN, SERUM 5.6 g/dL (6.4-8.2); UREA NITROGEN, BLOOD 26 mg/dL (7-18)
[2020-07-02 08:00] VITALS: BP 109/52
[2020-07-02 08:01] LABS: GLUCOMETER DEV NAME(LOC) AHU.; GLUCOSE,POINT OF CARE 375 MG/DL (70-110)
[2020-07-02 08:14] LABS: NEUTROPHILS % (AUTO) 88.7 % (40.0-70.0)
[2020-07-02] MEDS: HEPARIN SODIUM,PORCINE 5,000 UNITS/ML VIAL SQ SCH ×2 (08:16→16:11)
[2020-07-02] MEDS: FAMOTIDINE 10 MG/ML 2 ML VIAL IVP SCH ×2 (08:44→21:06)
[2020-07-02] MEDS: MULTIVITAMINS WITH MINERALS, THERAPEUTIC TABLET PO SCH (08:44)
[2020-07-02] MEDS: DEXAMETHASONE 4 MG TABLET PO SCH (08:44)
[2020-07-02] MEDS: ZINC SULFATE 220 MG CAPSULE PO SCH ×2 (08:45→21:06)
[2020-07-02] MEDS: CHOLECALCIFEROL (VIT D3) 1,000 UNITS [25 MCG] TABLET PO SCH (08:45)
[2020-07-02] MEDS: ASCORBIC ACID 500 MG TABLET PO SCH ×2 (11:44→21:06)
[2020-07-02 12:00] VITALS: BP 114/50
[2020-07-02 13:05] LABS: GLUCOMETER DEV NAME(LOC) AHU.; GLUCOSE,POINT OF CARE 337 MG/DL (70-110)
[2020-07-02 16:00] VITALS: BP 117/55
[2020-07-02] MEDS ORDERED: DEXTROSE 50%-WATER 25 GM/50 ML SYRINGE IVP PRN (17:30)
[2020-07-02 17:41] LABS: GLUCOMETER DEV NAME(LOC) AHU.; GLUCOSE,POINT OF CARE 413 MG/DL (70-110)
[2020-07-02] MEDS ORDERED: MIDAZOLAM HCL 100 MG in SODIUM CHLORIDE 0.9% 180 ML IV PRN (18:15)
[2020-07-02] MEDS: DEXMEDETOMIDINE HCL 400 MCG in SODIUM CHLORIDE 0.9% 96 ML IV PRN (18:31)
[2020-07-02] MEDS ORDERED: LACOSAMIDE 200 MG in DEXTROSE 5%-WATER 100 ML IV SCH (19:00)
[2020-07-02 20:00] VITALS: BP 128/62
[2020-07-02 21:57] LABS: GLUCOMETER DEV NAME(LOC) AHU.; GLUCOSE,POINT OF CARE 317 MG/DL (70-110)
[2020-07-03] VITALS (10 sets, daily range): BP systolic 91–126; BP diastolic 41–59
[2020-07-03] MEDS: HEPARIN SODIUM,PORCINE 5,000 UNITS/ML VIAL SQ SCH ×3 (00:23→16:33)
[2020-07-03] MEDS: PROPOFOL 1000 MG/ISO-OSM 100 ML IV PRN ×2 (02:05→22:18)
[2020-07-03] MEDS: FentaNYL CIT 1000MCG/D5%-WATER 100 ML IV PRN (03:36)
[2020-07-03 05:16] LABS: BASOPHILS % (AUTO) 0.7 % (0.0-2.0); EOSINOPHILS % (AUTO) 0.2 % (1.0-6.0); HEMATOCRIT 41.7 % (36-46); HEMOGLOBIN 13.5 g/dL (12.0-16.0); LYMPHOCYTES # (AUTO) 1.5 K/uL (1.0-4.8); LYMPHOCYTES % (AUTO) 7.8 % (22.0-44.0); MEAN CORPUSCULAR HGB CONC 32.5 G/dL (31.0-37.0); MEAN CORPUSCULAR VOLUME 92 fL (80-100); MONOCYTES # (AUTO) 1.4 K/uL (0.1-1.0); MONOCYTES % (AUTO) 7.1 % (2.0-9.0); NEUTROPHILS # (AUTO) 16.3 K/uL (1.8-7.7); NEUTROPHILS % (AUTO) 84.2 % (40.0-70.0); PLATELET COUNT (AUTO) 209 K/uL (150-450); RED BLOOD CELL COUNT(AUTO) 4.52 MIL/uL (4.00-5.20); RED CELL DISTRIBUTION WIDTH 13.7 % (11.5-14.5)
[2020-07-03 06:04] LABS: ALANINE AMINOTRANSFERASE 35 U/L (12-78); ALBUMIN 1.6 g/dL (3.4-5.0); ALKALINE PHOSPHATASE 69 U/L (46-116); ANION GAP 6 mmol/L (8-16); ASPARTATE AMINOTRANSFERASE 27 U/L (15-37); BILIRUBIN,TOTAL 0.6 mg/dL (0.1-1.0); C-REACTIVE PROTEIN QUANT 1.43 mg/dL (0.00-0.30); CALCIUM, TOTAL 9.2 mg/dL (8.8-10.5); CARBON DIOXIDE 28 mmol/L (22-29); CHLORIDE 104 mmol/L (98-107); CREATININE 0.54 mg/dL (0.60-1.30); GLOMERULAR FILTR. RATE CALC > 60 mL/min (>60); GLUCOSE,RANDOM 312 mg/dL (70-110); POTASSIUM 4.3 mmol/L (3.5-5.1); SODIUM SERUM 138 mmol/L (136-145); TOTAL PROTEIN, SERUM 5.6 g/dL (6.4-8.2); UREA NITROGEN, BLOOD 17 mg/dL (7-18)
[2020-07-03] MEDS: INSULIN LISPRO 100 UNITS/ML SQ PRN ×3 (06:09→22:27)
[2020-07-03 06:19] LABS: GLUCOMETER DEV NAME(LOC) AHU.; GLUCOSE,POINT OF CARE 270 MG/DL (70-110)
[2020-07-03] MEDS: DEXAMETHASONE 4 MG TABLET PO SCH (09:26)
[2020-07-03] MEDS: CHOLECALCIFEROL (VIT D3) 1,000 UNITS [25 MCG] TABLET PO SCH (09:26)
[2020-07-03] MEDS: ZINC SULFATE 220 MG CAPSULE PO SCH ×2 (09:26→20:12)
[2020-07-03] MEDS: ASCORBIC ACID 500 MG TABLET PO SCH ×2 (09:26→20:14)
[2020-07-03] MEDS: MULTIVITAMINS WITH MINERALS, THERAPEUTIC TABLET PO SCH (09:26)
[2020-07-03] MEDS: FAMOTIDINE 10 MG/ML 2 ML VIAL IVP SCH ×2 (09:26→20:14)
[2020-07-03] MEDS: ACETAMINOPHEN 325 MG TABLET PO PRN (15:30)
[2020-07-03] MEDS: HYDROCODONE/ACETAMINOPHEN 5-325 MG TABLET PO PRN (20:12)
[2020-07-03 21:44] LABS: GLUCOMETER DEV NAME(LOC) AHU.; GLUCOSE,POINT OF CARE 438 MG/DL (70-110)
[2020-07-03 22:02] LABS: GLUCOMETER DEV NAME(LOC) AHU.; GLUCOSE,POINT OF CARE 348 MG/DL (70-110)
[2020-07-04] VITALS (10 sets, daily range): BP systolic 102–149; BP diastolic 52–65
[2020-07-04] MEDS: HEPARIN SODIUM,PORCINE 5,000 UNITS/ML VIAL SQ SCH ×4 (00:43→23:19)
[2020-07-04] MEDS: FentaNYL CIT 1000MCG/D5%-WATER 100 ML IV PRN ×4 (02:22→21:49)
[2020-07-04 05:56] LABS: GLUCOMETER DEV NAME(LOC) AHU.; GLUCOSE,POINT OF CARE 408 MG/DL (70-110)
[2020-07-04] MEDS: INSULIN LISPRO 100 UNITS/ML SQ PRN ×4 (05:57→20:47)
[2020-07-04] MEDS: PROPOFOL 1000 MG/ISO-OSM 100 ML IV PRN ×2 (06:02→18:29)
[2020-07-04] MEDS: NOREPINEPHRINE 4 MG/D5%-WATER 250 ML IV PRN ×2 (06:02→13:10)
[2020-07-04 06:15] LABS: BASOPHILS % (AUTO) 0.4 % (0.0-2.0); EOSINOPHILS % (AUTO) 0.4 % (1.0-6.0); HEMOGLOBIN 12.8 g/dL (12.0-16.0); LYMPHOCYTES # (AUTO) 1.8 K/uL (1.0-4.8); LYMPHOCYTES % (AUTO) 7.2 % (22.0-44.0); MEAN CORPUSCULAR HEMOGLOBIN 30.1 pg (26.0-34.0); MEAN CORPUSCULAR HGB CONC 32.7 G/dL (31.0-37.0); MEAN CORPUSCULAR VOLUME 92 fL (80-100); MONOCYTES # (AUTO) 1.9 K/uL (0.1-1.0); MONOCYTES % (AUTO) 7.7 % (2.0-9.0); NEUTROPHILS # (AUTO) 21.2 K/uL (1.8-7.7); NEUTROPHILS % (AUTO) 84.3 % (40.0-70.0); PLATELET COUNT (AUTO) 186 K/uL (150-450); RED BLOOD CELL COUNT(AUTO) 4.23 MIL/uL (4.00-5.20); RED CELL DISTRIBUTION WIDTH 14.2 % (11.5-14.5)
[2020-07-04 06:47] LABS: ALANINE AMINOTRANSFERASE 36 U/L (12-78); ALBUMIN 1.6 g/dL (3.4-5.0); ALKALINE PHOSPHATASE 71 U/L (46-116); ANION GAP 7 mmol/L (8-16); ASPARTATE AMINOTRANSFERASE 29 U/L (15-37); BILIRUBIN,TOTAL 0.7 mg/dL (0.1-1.0); C-REACTIVE PROTEIN QUANT 1.16 mg/dL (0.00-0.30); CALCIUM, TOTAL 9.4 mg/dL (8.8-10.5); CARBON DIOXIDE 27 mmol/L (22-29); CHLORIDE 100 mmol/L (98-107); CREATININE 0.61 mg/dL (0.60-1.30); GLOMERULAR FILTR. RATE CALC > 60 mL/min (>60); GLUCOSE,RANDOM 397 mg/dL (70-110); POTASSIUM 4.2 mmol/L (3.5-5.1); SODIUM SERUM 134 mmol/L (136-145); TOTAL PROTEIN, SERUM 5.5 g/dL (6.4-8.2); UREA NITROGEN, BLOOD 23 mg/dL (7-18)
[2020-07-04 08:05] LABS: ABG A-A DIFF O2 206.2 mmHg (10-20.0); ABG BASE EXCESS 3.7 mmol/L (-2.0-3.0); ABG CARBOXYHEMOGLOBIN 1.2 % (0.0-1.5); ABG HCO3 27.3 mmol/L (22.0-26.0); ABG METHEMOGLOBIN 0.3 % (0.0-1.5); ABG OXYGEN CONTENT 17.4 mL/dL (15.0-23.0); ABG OXYGEN SATURATION 93.1 % (95.0-98.0); ABG OXYHEMOGLOBIN 91.7 % (94.0-100.0); ABG PCO2 44 mmHg (35-45); ABG PH 7.423 (7.35-7.450); ABG TOTAL HEMOGLOBIN 13.5 G/dL (12.0-18.0); SOURCE, BLOOD GAS ARTERIAL; TEMPERATURE, FAHRENHEIT, BG 99.2 FAHREN (96.0-98.6)
[2020-07-04 08:09] LABS: O2 DEVICE,BLOOD GAS VENTILATOR (ROOM AIR); SITE, BLOOD GAS RT RADIAL; VENT MODE, BG Press. Control Vent (ROOM AIR)
[2020-07-04 08:10] LABS: INSPIRATORY TIME, BG 0.8 SEC; PEEP,BG 5 cm H2O; SPONTANEOUS VT, BG 466 ml
[2020-07-04] MEDS: CHOLECALCIFEROL (VIT D3) 1,000 UNITS [25 MCG] TABLET PO SCH (09:59)
[2020-07-04] MEDS: ACETAMINOPHEN 325 MG TABLET PO PRN (10:00)
[2020-07-04] MEDS: ZINC SULFATE 220 MG CAPSULE PO SCH ×2 (10:01→20:35)
[2020-07-04] MEDS: ASCORBIC ACID 500 MG TABLET PO SCH ×2 (10:01→20:37)
[2020-07-04] MEDS: MULTIVITAMINS WITH MINERALS, THERAPEUTIC TABLET PO SCH (10:01)
[2020-07-04] MEDS: FAMOTIDINE 10 MG/ML 2 ML VIAL IVP SCH ×2 (10:02→20:36)
[2020-07-04] MEDS: DEXMEDETOMIDINE HCL 400 MCG in SODIUM CHLORIDE 0.9% 96 ML IV PRN ×2 (10:03→23:17)
[2020-07-04 12:50] LABS: GLUCOMETER DEV NAME(LOC) AHU.; GLUCOSE,POINT OF CARE 336 MG/DL (70-110)
[2020-07-04] MEDS: CefTAZidime PENTAHYDRATE 2 GM in DEXTROSE 5%-WATER 50 ML IV SCH ×2 (13:08→20:37)
[2020-07-04] MEDS: DAPTOMYCIN 500 MG in SODIUM CHLORIDE 0.9% 50 ML IV SCH (16:30)
[2020-07-04 18:07] LABS: GLUCOMETER DEV NAME(LOC) AHU.; GLUCOSE,POINT OF CARE 329 MG/DL (70-110)
[2020-07-04 20:57] LABS: GLUCOMETER DEV NAME(LOC) AHU.; GLUCOSE,POINT OF CARE 248 MG/DL (70-110)
[2020-07-05 00:14] VITALS: BP 104/51
[2020-07-05] MEDS: PROPOFOL 1000 MG/ISO-OSM 100 ML IV PRN ×3 (02:13→16:28)
[2020-07-05] MEDS: FentaNYL CIT 1000MCG/D5%-WATER 100 ML IV PRN ×3 (02:46→16:28)
[2020-07-05 04:00] VITALS: BP 122/62
[2020-07-05] MEDS: CefTAZidime PENTAHYDRATE 2 GM in DEXTROSE 5%-WATER 50 ML IV SCH ×3 (04:41→21:38)
[2020-07-05] MEDS: INSULIN LISPRO 100 UNITS/ML SQ PRN ×2 (06:02→17:43)
[2020-07-05 06:13] LABS: GLUCOMETER DEV NAME(LOC) AHU.; GLUCOSE,POINT OF CARE 258 MG/DL (70-110)
[2020-07-05 06:17] LABS: BASOPHILS % (AUTO) 0.2 % (0.0-2.0); EOSINOPHILS % (AUTO) 1.5 % (1.0-6.0); HEMOGLOBIN 12.1 g/dL (12.0-16.0); LYMPHOCYTES # (AUTO) 1.1 K/uL (1.0-4.8); LYMPHOCYTES % (AUTO) 6.8 % (22.0-44.0); MEAN CORPUSCULAR HEMOGLOBIN 30.3 pg (26.0-34.0); MEAN CORPUSCULAR HGB CONC 32.6 G/dL (31.0-37.0); MEAN CORPUSCULAR VOLUME 93 fL (80-100); MONOCYTES % (AUTO) 6.1 % (2.0-9.0); NEUTROPHILS # (AUTO) 14.1 K/uL (1.8-7.7); PLATELET COUNT (AUTO) 150 K/uL (150-450); RED BLOOD CELL COUNT(AUTO) 3.99 MIL/uL (4.00-5.20); RED CELL DISTRIBUTION WIDTH 13.9 % (11.5-14.5)
[2020-07-05 06:25] LABS: NEUTROPHILS % (AUTO) 85.4 % (40.0-70.0)
[2020-07-05 07:07] LABS: ALANINE AMINOTRANSFERASE 27 U/L (12-78); ALBUMIN 1.5 g/dL (3.4-5.0); ALKALINE PHOSPHATASE 64 U/L (46-116); ANION GAP 7 mmol/L (8-16); ASPARTATE AMINOTRANSFERASE 26 U/L (15-37); BILIRUBIN,TOTAL 0.6 mg/dL (0.1-1.0); CALCIUM, TOTAL 9.4 mg/dL (8.8-10.5); CARBON DIOXIDE 29 mmol/L (22-29); CHLORIDE 101 mmol/L (98-107); CREATININE 0.42 mg/dL (0.60-1.30); GLOMERULAR FILTR. RATE CALC > 60 mL/min (>60); GLUCOSE,RANDOM 280 mg/dL (70-110); SODIUM SERUM 137 mmol/L (136-145); TOTAL PROTEIN, SERUM 5.6 g/dL (6.4-8.2); UREA NITROGEN, BLOOD 11 mg/dL (7-18)
[2020-07-05 08:00] VITALS: BP 104/48
[2020-07-05] MEDS: HEPARIN SODIUM,PORCINE 5,000 UNITS/ML VIAL SQ SCH ×2 (08:25→16:28)
[2020-07-05] MEDS: MULTIVITAMINS WITH MINERALS, THERAPEUTIC TABLET PO SCH (08:25)
[2020-07-05] MEDS: ASCORBIC ACID 500 MG TABLET PO SCH ×2 (08:25→21:38)
[2020-07-05] MEDS: FAMOTIDINE 10 MG/ML 2 ML VIAL IVP SCH ×2 (08:25→21:38)
[2020-07-05] MEDS: CHOLECALCIFEROL (VIT D3) 1,000 UNITS [25 MCG] TABLET PO SCH (08:25)
[2020-07-05] MEDS: ZINC SULFATE 220 MG CAPSULE PO SCH ×2 (08:25→21:38)
[2020-07-05 12:00] VITALS: BP 103/42
[2020-07-05] MEDS: DEXMEDETOMIDINE HCL 400 MCG in SODIUM CHLORIDE 0.9% 96 ML IV PRN ×2 (12:36→19:42)
[2020-07-05] MEDS ORDERED: SODIUM CHLORIDE 0.9% 250 ML IV ONE (12:41)
[2020-07-05 13:19] LABS: GLUCOMETER DEV NAME(LOC) AHU.; GLUCOSE,POINT OF CARE 237 MG/DL (70-110)
[2020-07-05] MEDS: DAPTOMYCIN 500 MG in SODIUM CHLORIDE 0.9% 50 ML IV SCH (14:24)
[2020-07-05 16:11] VITALS: BP 102/47
[2020-07-05 17:18] LABS: GLUCOMETER DEV NAME(LOC) AHU.; GLUCOSE,POINT OF CARE 216 MG/DL (70-110)
[2020-07-05 20:00] VITALS: BP 104/48
[2020-07-05] MEDS: ACETAMINOPHEN 325 MG TABLET PO PRN (21:38)
[2020-07-05] MEDS: DIAZEPAM 5 MG TABLET PO PRN (23:32)
[2020-07-06] VITALS (11 sets, daily range): BP systolic 86–138; BP diastolic 45–73
[2020-07-06] MEDS: HEPARIN SODIUM,PORCINE 5,000 UNITS/ML VIAL SQ SCH ×3 (00:03→16:08)
[2020-07-06] MEDS: INSULIN LISPRO 100 UNITS/ML SQ PRN ×2 (00:05→19:31)
[2020-07-06 00:10] LABS: GLUCOMETER DEV NAME(LOC) AHU.; GLUCOSE,POINT OF CARE 207 MG/DL (70-110)
[2020-07-06] MEDS: FentaNYL CIT 1000MCG/D5%-WATER 100 ML IV PRN ×2 (02:31→21:00)
[2020-07-06] MEDS: PROPOFOL 1000 MG/ISO-OSM 100 ML IV PRN ×2 (02:32→19:54)
[2020-07-06] MEDS: DEXMEDETOMIDINE HCL 400 MCG in SODIUM CHLORIDE 0.9% 96 ML IV PRN ×3 (02:32→19:56)
[2020-07-06] MEDS: CefTAZidime PENTAHYDRATE 2 GM in DEXTROSE 5%-WATER 50 ML IV SCH ×3 (05:00→21:17)
[2020-07-06 06:13] LABS: BASOPHILS % (AUTO) 0.4 % (0.0-2.0); EOSINOPHILS % (AUTO) 2.1 % (1.0-6.0); HEMATOCRIT 34.5 % (36-46); HEMOGLOBIN 11.6 g/dL (12.0-16.0); LYMPHOCYTES # (AUTO) 0.7 K/uL (1.0-4.8); LYMPHOCYTES % (AUTO) 8.7 % (22.0-44.0); MEAN CORPUSCULAR HEMOGLOBIN 31.1 pg (26.0-34.0); MEAN CORPUSCULAR HGB CONC 33.7 G/dL (31.0-37.0); MEAN CORPUSCULAR VOLUME 92 fL (80-100); MONOCYTES # (AUTO) 0.4 K/uL (0.1-1.0); MONOCYTES % (AUTO) 5.1 % (2.0-9.0); NEUTROPHILS % (AUTO) 83.7 % (40.0-70.0); PLATELET COUNT (AUTO) 114 K/uL (150-450); RED BLOOD CELL COUNT(AUTO) 3.75 MIL/uL (4.00-5.20); RED CELL DISTRIBUTION WIDTH 14.1 % (11.5-14.5)
[2020-07-06 06:42] LABS: ALANINE AMINOTRANSFERASE 22 U/L (12-78); ALBUMIN 1.3 g/dL (3.4-5.0); ALKALINE PHOSPHATASE 56 U/L (46-116); ANION GAP 0 mmol/L (8-16); ASPARTATE AMINOTRANSFERASE 20 U/L (15-37); BILIRUBIN,TOTAL 0.6 mg/dL (0.1-1.0); CALCIUM, TOTAL 9.3 mg/dL (8.8-10.5); CARBON DIOXIDE 34 mmol/L (22-29); CHLORIDE 103 mmol/L (98-107); CREATININE 0.44 mg/dL (0.60-1.30); GLOMERULAR FILTR. RATE CALC > 60 mL/min (>60); GLUCOSE,RANDOM 261 mg/dL (70-110); POTASSIUM 4.2 mmol/L (3.5-5.1); SODIUM SERUM 137 mmol/L (136-145); TOTAL PROTEIN, SERUM 5.5 g/dL (6.4-8.2); UREA NITROGEN, BLOOD 13 mg/dL (7-18)
[2020-07-06 07:16] LABS: GLUCOMETER DEV NAME(LOC) AHU.; GLUCOSE,POINT OF CARE 244 MG/DL (70-110)
[2020-07-06] MEDS: MULTIVITAMINS WITH MINERALS, THERAPEUTIC TABLET PO SCH (08:26)
[2020-07-06] MEDS: FAMOTIDINE 10 MG/ML 2 ML VIAL IVP SCH ×2 (08:26→21:17)
[2020-07-06] MEDS: ASCORBIC ACID 500 MG TABLET PO SCH ×2 (08:26→21:18)
[2020-07-06] MEDS: ZINC SULFATE 220 MG CAPSULE PO SCH ×2 (08:26→21:17)
[2020-07-06] MEDS: CHOLECALCIFEROL (VIT D3) 1,000 UNITS [25 MCG] TABLET PO SCH (08:27)
[2020-07-06 12:37] LABS: GLUCOMETER DEV NAME(LOC) AHU.; GLUCOSE,POINT OF CARE 183 MG/DL (70-110)
[2020-07-06] MEDS: DAPTOMYCIN 500 MG in SODIUM CHLORIDE 0.9% 50 ML IV SCH (14:08)
[2020-07-06] MEDS: DIAZEPAM 5 MG TABLET PO PRN (17:41)
[2020-07-06] MEDS ORDERED: LORazepam 2 MG/ML VIAL ONE (18:12)
[2020-07-06] MEDS ORDERED: LORazepam 2 MG/ML VIAL IVP ONE (18:30)
[2020-07-06 19:14] LABS: GLUCOMETER DEV NAME(LOC) AHU.; GLUCOSE,POINT OF CARE 270 MG/DL (70-110)
[2020-07-06] MEDS: ACETAMINOPHEN 325 MG TABLET PO PRN (19:35)
[2020-07-07] VITALS: BP 141/58
[2020-07-07] MEDS: HEPARIN SODIUM,PORCINE 5,000 UNITS/ML VIAL SQ SCH ×4 (00:16→23:45)
[2020-07-07] MEDS: INSULIN LISPRO 100 UNITS/ML SQ PRN ×5 (01:52→21:26)
[2020-07-07 03:04] LABS: COVID AG,FIA SOURCE NASAL SWAB
[2020-07-07 04:00] VITALS: BP 103/47
[2020-07-07] MEDS: DEXMEDETOMIDINE HCL 400 MCG in SODIUM CHLORIDE 0.9% 96 ML IV PRN ×3 (04:41→20:40)
[2020-07-07] MEDS: CefTAZidime PENTAHYDRATE 2 GM in DEXTROSE 5%-WATER 50 ML IV SCH ×3 (04:42→20:17)
[2020-07-07] MEDS: FentaNYL CIT 1000MCG/D5%-WATER 100 ML IV PRN ×2 (05:22→18:03)
[2020-07-07 06:38] LABS: GLUCOMETER DEV NAME(LOC) AHU.; GLUCOSE,POINT OF CARE 211 MG/DL (70-110)
[2020-07-07 06:49] LABS: BASOPHILS % (AUTO) 0.2 % (0.0-2.0); EOSINOPHILS % (AUTO) 1.9 % (1.0-6.0); HEMATOCRIT 34.2 % (36-46); HEMOGLOBIN 11.4 g/dL (12.0-16.0); LYMPHOCYTES # (AUTO) 0.8 K/uL (1.0-4.8); LYMPHOCYTES % (AUTO) 11.2 % (22.0-44.0); MEAN CORPUSCULAR HEMOGLOBIN 30.8 pg (26.0-34.0); MEAN CORPUSCULAR HGB CONC 33.3 G/dL (31.0-37.0); MEAN CORPUSCULAR VOLUME 92 fL (80-100); MONOCYTES # (AUTO) 0.5 K/uL (0.1-1.0); MONOCYTES % (AUTO) 6.3 % (2.0-9.0); NEUTROPHILS # (AUTO) 6.1 K/uL (1.8-7.7); NEUTROPHILS % (AUTO) 80.4 % (40.0-70.0); PLATELET COUNT (AUTO) 129 K/uL (150-450); RED BLOOD CELL COUNT(AUTO) 3.71 MIL/uL (4.00-5.20); RED CELL DISTRIBUTION WIDTH 14.1 % (11.5-14.5)
[2020-07-07 07:10] LABS: GLUCOMETER DEV NAME(LOC) AHU.; GLUCOSE,POINT OF CARE 162 MG/DL (70-110)
[2020-07-07 07:32] LABS: ALANINE AMINOTRANSFERASE 20 U/L (12-78); ALBUMIN 1.3 g/dL (3.4-5.0); ALKALINE PHOSPHATASE 56 U/L (46-116); ANION GAP 2 mmol/L (8-16); ASPARTATE AMINOTRANSFERASE 24 U/L (15-37); BILIRUBIN,TOTAL 0.6 mg/dL (0.1-1.0); CALCIUM, TOTAL 9.6 mg/dL (8.8-10.5); CARBON DIOXIDE 34 mmol/L (22-29); CHLORIDE 106 mmol/L (98-107); CREATININE 0.42 mg/dL (0.60-1.30); GLOMERULAR FILTR. RATE CALC > 60 mL/min (>60); GLUCOSE,RANDOM 188 mg/dL (70-110); SODIUM SERUM 142 mmol/L (136-145); TOTAL PROTEIN, SERUM 5.5 g/dL (6.4-8.2); UREA NITROGEN, BLOOD 17 mg/dL (7-18)
[2020-07-07 08:00] VITALS: BP 92/46
[2020-07-07] MEDS: FAMOTIDINE 10 MG/ML 2 ML VIAL IVP SCH ×2 (08:56→20:22)
[2020-07-07] MEDS: ASCORBIC ACID 500 MG TABLET PO SCH ×2 (08:56→20:22)
[2020-07-07] MEDS: CHOLECALCIFEROL (VIT D3) 1,000 UNITS [25 MCG] TABLET PO SCH (08:56)
[2020-07-07] MEDS: MULTIVITAMINS WITH MINERALS, THERAPEUTIC TABLET PO SCH (08:56)
[2020-07-07] MEDS: ZINC SULFATE 220 MG CAPSULE PO SCH ×2 (08:56→20:22)
[2020-07-07 12:03] VITALS: BP 124/60
[2020-07-07 12:42] LABS: GLUCOMETER DEV NAME(LOC) AHU.; GLUCOSE,POINT OF CARE 165 MG/DL (70-110)
[2020-07-07] MEDS: DAPTOMYCIN 500 MG in SODIUM CHLORIDE 0.9% 50 ML IV SCH (13:02)
[2020-07-07 16:03] VITALS: BP 114/54
[2020-07-07 19:55] LABS: GLUCOMETER DEV NAME(LOC) AHU.; GLUCOSE,POINT OF CARE 172 MG/DL (70-110)
[2020-07-07 21:08] LABS: GLUCOMETER DEV NAME(LOC) AHU.; GLUCOSE,POINT OF CARE 199 MG/DL (70-110)
[2020-07-07 22:00] VITALS: BP 121/55
[2020-07-08] VITALS: BP 129/65
[2020-07-08] MEDS: FentaNYL CIT 1000MCG/D5%-WATER 100 ML IV PRN ×3 (01:01→19:28)
[2020-07-08 02:17] LABS: GLUCOMETER DEV NAME(LOC) AHU.; GLUCOSE,POINT OF CARE 108 MG/DL (70-110)
[2020-07-08] MEDS: DEXMEDETOMIDINE HCL 400 MCG in SODIUM CHLORIDE 0.9% 96 ML IV PRN ×3 (04:31→23:43)
[2020-07-08] MEDS: CefTAZidime PENTAHYDRATE 2 GM in DEXTROSE 5%-WATER 50 ML IV SCH ×3 (04:32→20:26)
[2020-07-08 06:00] VITALS: BP 105/54
[2020-07-08] MEDS: INSULIN LISPRO 100 UNITS/ML SQ PRN ×3 (06:19→18:54)
[2020-07-08 06:56] LABS: GLUCOMETER DEV NAME(LOC) AHU.; GLUCOSE,POINT OF CARE 151 MG/DL (70-110)
[2020-07-08 08:00] VITALS: BP 108/50
[2020-07-08] MEDS: HEPARIN SODIUM,PORCINE 5,000 UNITS/ML VIAL SQ SCH ×3 (09:13→23:37)
[2020-07-08] MEDS: CHOLECALCIFEROL (VIT D3) 1,000 UNITS [25 MCG] TABLET PO SCH (09:13)
[2020-07-08] MEDS: ZINC SULFATE 220 MG CAPSULE PO SCH ×2 (09:14→20:21)
[2020-07-08] MEDS: ASCORBIC ACID 500 MG TABLET PO SCH ×2 (09:14→20:21)
[2020-07-08] MEDS: MULTIVITAMINS WITH MINERALS, THERAPEUTIC TABLET PO SCH (09:14)
[2020-07-08] MEDS: FAMOTIDINE 10 MG/ML 2 ML VIAL IVP SCH ×2 (09:15→20:21)
[2020-07-08] MEDS: DIAZEPAM 5 MG TABLET PO PRN (11:04)
[2020-07-08 12:00] VITALS: BP 113/58
[2020-07-08 13:28] LABS: GLUCOMETER DEV NAME(LOC) AHU.; GLUCOSE,POINT OF CARE 147 MG/DL (70-110)
[2020-07-08 16:00] VITALS: BP 101/55
[2020-07-08] MEDS: ACETAMINOPHEN 325 MG TABLET PO PRN (17:03)
[2020-07-08 18:53] LABS: GLUCOMETER DEV NAME(LOC) AHU.; GLUCOSE,POINT OF CARE 129 MG/DL (70-110)
[2020-07-08 20:00] VITALS: BP 103/55
[2020-07-08 20:53] LABS: GLUCOMETER DEV NAME(LOC) AHU.; GLUCOSE,POINT OF CARE 114 MG/DL (70-110)
[2020-07-09] VITALS (7 sets, daily range): BP systolic 87–124; BP diastolic 45–70
[2020-07-09 00:22] LABS: GLUCOMETER DEV NAME(LOC) AHU.; GLUCOSE,POINT OF CARE 144 MG/DL (70-110)
[2020-07-09] MEDS: INSULIN LISPRO 100 UNITS/ML SQ PRN ×3 (00:50→18:35)
[2020-07-09] MEDS: HYDROCODONE/ACETAMINOPHEN 5-325 MG TABLET PO PRN (04:36)
[2020-07-09] MEDS: CefTAZidime PENTAHYDRATE 2 GM in DEXTROSE 5%-WATER 50 ML IV SCH ×3 (04:36→20:13)
[2020-07-09] MEDS: FentaNYL CIT 1000MCG/D5%-WATER 100 ML IV PRN (04:47)
[2020-07-09] MEDS: DIAZEPAM 5 MG TABLET PO SCH ×2 (05:43→17:50)
[2020-07-09] MEDS ORDERED: DIAZEPAM 5 MG TABLET PO SCH (06:00)
[2020-07-09 07:33] LABS: GLUCOMETER DEV NAME(LOC) AHU.; GLUCOSE,POINT OF CARE 114 MG/DL (70-110)
[2020-07-09] MEDS: DEXMEDETOMIDINE HCL 400 MCG in SODIUM CHLORIDE 0.9% 96 ML IV PRN ×2 (09:49→16:13)
[2020-07-09] MEDS: CHOLECALCIFEROL (VIT D3) 1,000 UNITS [25 MCG] TABLET PO SCH (10:39)
[2020-07-09] MEDS: ZINC SULFATE 220 MG CAPSULE PO SCH ×2 (10:39→20:13)
[2020-07-09] MEDS: ASCORBIC ACID 500 MG TABLET PO SCH ×2 (10:40→20:13)
[2020-07-09] MEDS: MULTIVITAMINS WITH MINERALS, THERAPEUTIC TABLET PO SCH (10:40)
[2020-07-09] MEDS: FAMOTIDINE 10 MG/ML 2 ML VIAL IVP SCH ×2 (10:41→20:13)
[2020-07-09] MEDS: HEPARIN SODIUM,PORCINE 5,000 UNITS/ML VIAL SQ SCH ×3 (10:42→23:57)
[2020-07-09 11:10] LABS: BASOPHILS % (AUTO) 0.9 % (0.0-2.0); EOSINOPHILS % (AUTO) 2.7 % (1.0-6.0); HEMATOCRIT 34.7 % (36-46); HEMOGLOBIN 11.4 g/dL (12.0-16.0); MEAN CORPUSCULAR HEMOGLOBIN 30.5 pg (26.0-34.0); MEAN CORPUSCULAR HGB CONC 32.9 G/dL (31.0-37.0); MEAN CORPUSCULAR VOLUME 93 fL (80-100); MONOCYTES # (AUTO) 0.5 K/uL (0.1-1.0); NEUTROPHILS # (AUTO) 4.8 K/uL (1.8-7.7); NEUTROPHILS % (AUTO) 73.4 % (40.0-70.0); PLATELET COUNT (AUTO) 155 K/uL (150-450); RED BLOOD CELL COUNT(AUTO) 3.73 MIL/uL (4.00-5.20); RED CELL DISTRIBUTION WIDTH 14.3 % (11.5-14.5)
[2020-07-09 11:19] LABS: ANION GAP 4 mmol/L (8-16); CALCIUM, TOTAL 9.2 mg/dL (8.8-10.5); CARBON DIOXIDE 31 mmol/L (22-29); CHLORIDE 102 mmol/L (98-107); CREATININE 0.36 mg/dL (0.60-1.30); GLOMERULAR FILTR. RATE CALC > 60 mL/min (>60); GLUCOSE,RANDOM 171 mg/dL (70-110); POTASSIUM 3.8 mmol/L (3.5-5.1); SODIUM SERUM 137 mmol/L (136-145); UREA NITROGEN, BLOOD 23 mg/dL (7-18)
[2020-07-09 11:22] LABS: ALANINE AMINOTRANSFERASE 25 U/L (12-78); ALBUMIN 1.4 g/dL (3.4-5.0); ALKALINE PHOSPHATASE 65 U/L (46-116); ASPARTATE AMINOTRANSFERASE 36 U/L (15-37); BILIRUBIN,TOTAL 0.9 mg/dL (0.1-1.0); TOTAL PROTEIN, SERUM 5.5 g/dL (6.4-8.2)
[2020-07-09 13:34] LABS: GLUCOMETER DEV NAME(LOC) AHU.; GLUCOSE,POINT OF CARE 137 MG/DL (70-110)
[2020-07-09 18:39] LABS: GLUCOMETER DEV NAME(LOC) AHU.; GLUCOSE,POINT OF CARE 132 MG/DL (70-110)
[2020-07-10] VITALS (7 sets, daily range): BP systolic 89–137; BP diastolic 41–74
[2020-07-10] MEDS: INSULIN LISPRO 100 UNITS/ML SQ PRN ×5 (00:12→23:43)
[2020-07-10] MEDS: DEXMEDETOMIDINE HCL 400 MCG in SODIUM CHLORIDE 0.9% 96 ML IV PRN ×2 (01:07→08:09)
[2020-07-10] MEDS: CefTAZidime PENTAHYDRATE 2 GM in DEXTROSE 5%-WATER 50 ML IV SCH ×3 (04:31→22:43)
[2020-07-10 04:37] LABS: GLUCOMETER DEV NAME(LOC) AHU.; GLUCOSE,POINT OF CARE 131 MG/DL (70-110)
[2020-07-10] MEDS: FentaNYL CIT 1000MCG/D5%-WATER 100 ML IV PRN ×2 (04:45→22:58)
[2020-07-10] MEDS: DIAZEPAM 5 MG TABLET PO SCH ×2 (05:32→17:53)
[2020-07-10 06:16] LABS: BASOPHILS % (AUTO) 0.4 % (0.0-2.0); EOSINOPHILS % (AUTO) 2.8 % (1.0-6.0); HEMATOCRIT 32.2 % (36-46); HEMOGLOBIN 10.9 g/dL (12.0-16.0); LYMPHOCYTES # (AUTO) 1.2 K/uL (1.0-4.8); LYMPHOCYTES % (AUTO) 17.9 % (22.0-44.0); MEAN CORPUSCULAR HEMOGLOBIN 31.2 pg (26.0-34.0); MEAN CORPUSCULAR HGB CONC 33.7 G/dL (31.0-37.0); MEAN CORPUSCULAR VOLUME 93 fL (80-100); MONOCYTES # (AUTO) 0.5 K/uL (0.1-1.0); MONOCYTES % (AUTO) 8.2 % (2.0-9.0); NEUTROPHILS # (AUTO) 4.7 K/uL (1.8-7.7); NEUTROPHILS % (AUTO) 70.7 % (40.0-70.0); PLATELET COUNT (AUTO) 161 K/uL (150-450); RED BLOOD CELL COUNT(AUTO) 3.48 MIL/uL (4.00-5.20); RED CELL DISTRIBUTION WIDTH 14.7 % (11.5-14.5)
[2020-07-10 06:30] LABS: ALANINE AMINOTRANSFERASE 29 U/L (12-78); ALBUMIN 1.4 g/dL (3.4-5.0); ALKALINE PHOSPHATASE 65 U/L (46-116); ANION GAP 5 mmol/L (8-16); ASPARTATE AMINOTRANSFERASE 28 U/L (15-37); BILIRUBIN,TOTAL 0.6 mg/dL (0.1-1.0); CALCIUM, TOTAL 9.1 mg/dL (8.8-10.5); CARBON DIOXIDE 30 mmol/L (22-29); CHLORIDE 104 mmol/L (98-107); CREATININE 0.45 mg/dL (0.60-1.30); GLOMERULAR FILTR. RATE CALC > 60 mL/min (>60); GLUCOSE,RANDOM 161 mg/dL (70-110); POTASSIUM 3.7 mmol/L (3.5-5.1); SODIUM SERUM 139 mmol/L (136-145); TOTAL PROTEIN, SERUM 5.3 g/dL (6.4-8.2); UREA NITROGEN, BLOOD 21 mg/dL (7-18)
[2020-07-10 06:38] LABS: GLUCOMETER DEV NAME(LOC) AHU.; GLUCOSE,POINT OF CARE 166 MG/DL (70-110)
[2020-07-10] MEDS: HEPARIN SODIUM,PORCINE 5,000 UNITS/ML VIAL SQ SCH ×3 (07:48→23:32)
[2020-07-10] MEDS: FAMOTIDINE 10 MG/ML 2 ML VIAL IVP SCH ×2 (07:57→23:12)
[2020-07-10] MEDS: ACETAMINOPHEN 325 MG TABLET PO PRN (07:58)
[2020-07-10] MEDS: CHOLECALCIFEROL (VIT D3) 1,000 UNITS [25 MCG] TABLET PO SCH (07:59)
[2020-07-10] MEDS: ASCORBIC ACID 500 MG TABLET PO SCH ×2 (07:59→22:42)
[2020-07-10] MEDS: MULTIVITAMINS WITH MINERALS, THERAPEUTIC TABLET PO SCH (08:00)
[2020-07-10] MEDS: ZINC SULFATE 220 MG CAPSULE PO SCH ×2 (08:00→22:42)
[2020-07-10 19:30] LABS: GLUCOSE,POINT OF CARE 148 MG/DL (70-110)
[2020-07-10] MEDS ORDERED: SODIUM CHLORIDE 0.9% 250 ML IV ONE (20:22)
[2020-07-10 21:16] LABS: APPEARANCE,URINE CLOUDY (CLEAR); BILIRUBIN,URINE NEGATIVE (NEGATIVE); GLUCOSE, URINE (UA) NEGATIVE (NEGATIVE); KETONES,URINE 15 mg/dL (NEGATIVE); LEUKOCYTE ESTERASE ,URINE NEGATIVE (NEGATIVE); NITRATE,URINE NEGATIVE (NEGATIVE); OCCULT BLOOD,URINE TRACE (NEGATIVE); PH,URINE 5.5 (5.0-8.0); PROTEIN,URINE NEGATIVE (NEGATIVE); UROBILINOGEN,URINE 0.2 mg/dL (<=1.0)
[2020-07-10 21:23] LABS: BACTERIA,URINE None Seen /HPF (None Seen); RBC,URINE 0-2 /HPF (0-2); WBC,URINE None Seen /HPF (0-5); YEAST,URINE Moderate /HPF (None Seen)
[2020-07-11] VITALS (7 sets, daily range): BP systolic 89–136; BP diastolic 58–76
[2020-07-11 00:27] LABS: GLUCOSE,POINT OF CARE 199 MG/DL (70-110)
[2020-07-11] MEDS: DEXMEDETOMIDINE HCL 400 MCG in SODIUM CHLORIDE 0.9% 96 ML IV PRN ×2 (01:29→16:27)
[2020-07-11 03:32] LABS: ABG A-A DIFF O2 538.9 mmHg (10-20.0); ABG BASE EXCESS 6.8 mmol/L (-2.0-3.0); ABG CARBOXYHEMOGLOBIN 0.3 % (0.0-1.5); ABG HCO3 29.8 mmol/L (22.0-26.0); ABG METHEMOGLOBIN 0.3 % (0.0-1.5); ABG OXYGEN CONTENT 17.5 mL/dL (15.0-23.0); ABG OXYGEN SATURATION 98.4 % (95.0-98.0); ABG OXYHEMOGLOBIN 97.8 % (94.0-100.0); ABG PCO2 47 mmHg (35-45); ABG PH 7.435 (7.35-7.450); ABG TOTAL HEMOGLOBIN 12.6 G/dL (12.0-18.0); O2 DEVICE,BLOOD GAS NON REBREATHER (ROOM AIR); SITE, BLOOD GAS RT RADIAL; SOURCE, BLOOD GAS ARTERIAL; TEMPERATURE, FAHRENHEIT, BG 99.1 FAHREN (96.0-98.6)
[2020-07-11] MEDS: CefTAZidime PENTAHYDRATE 2 GM in DEXTROSE 5%-WATER 50 ML IV SCH ×3 (05:38→21:24)
[2020-07-11] MEDS: DIAZEPAM 5 MG TABLET PO SCH ×2 (06:00→18:00)
[2020-07-11 06:41] LABS: BASOPHILS % (AUTO) 0.5 % (0.0-2.0); EOSINOPHILS % (AUTO) 2.6 % (1.0-6.0); HEMATOCRIT 34.6 % (36-46); HEMOGLOBIN 11.5 g/dL (12.0-16.0); LYMPHOCYTES # (AUTO) 1.1 K/uL (1.0-4.8); LYMPHOCYTES % (AUTO) 14.4 % (22.0-44.0); MEAN CORPUSCULAR HEMOGLOBIN 30.8 pg (26.0-34.0); MEAN CORPUSCULAR HGB CONC 33.2 G/dL (31.0-37.0); MEAN CORPUSCULAR VOLUME 93 fL (80-100); MONOCYTES # (AUTO) 0.6 K/uL (0.1-1.0); MONOCYTES % (AUTO) 8.1 % (2.0-9.0); NEUTROPHILS # (AUTO) 5.5 K/uL (1.8-7.7); NEUTROPHILS % (AUTO) 74.4 % (40.0-70.0); PLATELET COUNT (AUTO) 177 K/uL (150-450); RED BLOOD CELL COUNT(AUTO) 3.72 MIL/uL (4.00-5.20); RED CELL DISTRIBUTION WIDTH 15.2 % (11.5-14.5)
[2020-07-11 07:01] LABS: ALANINE AMINOTRANSFERASE 26 U/L (12-78); ALBUMIN 1.5 g/dL (3.4-5.0); ALKALINE PHOSPHATASE 64 U/L (46-116); ANION GAP 6 mmol/L (8-16); ASPARTATE AMINOTRANSFERASE 28 U/L (15-37); BILIRUBIN,TOTAL 0.5 mg/dL (0.1-1.0); CALCIUM, TOTAL 9.3 mg/dL (8.8-10.5); CARBON DIOXIDE 30 mmol/L (22-29); CHLORIDE 105 mmol/L (98-107); CREATININE 0.45 mg/dL (0.60-1.30); GLOMERULAR FILTR. RATE CALC > 60 mL/min (>60); GLUCOSE,RANDOM 120 mg/dL (70-110); POTASSIUM 3.6 mmol/L (3.5-5.1); SODIUM SERUM 141 mmol/L (136-145); TOTAL PROTEIN, SERUM 5.6 g/dL (6.4-8.2); UREA NITROGEN, BLOOD 14 mg/dL (7-18)
[2020-07-11] MEDS: FAMOTIDINE 10 MG/ML 2 ML VIAL IVP SCH ×2 (08:38→21:23)
[2020-07-11] MEDS: MULTIVITAMINS WITH MINERALS, THERAPEUTIC TABLET PO SCH (08:38)
[2020-07-11] MEDS: ASCORBIC ACID 500 MG TABLET PO SCH ×2 (08:38→21:00)
[2020-07-11] MEDS: HEPARIN SODIUM,PORCINE 5,000 UNITS/ML VIAL SQ SCH ×2 (08:38→16:45)
[2020-07-11] MEDS: CHOLECALCIFEROL (VIT D3) 1,000 UNITS [25 MCG] TABLET PO SCH (08:38)
[2020-07-11] MEDS: ZINC SULFATE 220 MG CAPSULE PO SCH ×2 (08:39→21:00)
[2020-07-11 11:32] LABS: GLUCOSE,POINT OF CARE 137 MG/DL (70-110)
[2020-07-11 11:32] LABS: GLUCOSE,POINT OF CARE 132 MG/DL (70-110)
[2020-07-11 18:01] LABS: GLUCOSE,POINT OF CARE 146 MG/DL (70-110)
[2020-07-11] MEDS: ACETAMINOPHEN 650 MG RECTAL SUPPOSITORY PR PRN (19:37)
[2020-07-12] VITALS (7 sets, daily range): BP systolic 97–123; BP diastolic 55–69
[2020-07-12] MEDS: HEPARIN SODIUM,PORCINE 5,000 UNITS/ML VIAL SQ SCH ×4 (00:29→23:37)
[2020-07-12 01:41] LABS: GLUCOSE,POINT OF CARE 130 MG/DL (70-110)
[2020-07-12] MEDS: MORPHINE SULFATE 2 MG/ML SYRINGE IVP PRN ×2 (02:43→08:01)
[2020-07-12] MEDS: DEXMEDETOMIDINE HCL 400 MCG in SODIUM CHLORIDE 0.9% 96 ML IV PRN ×2 (03:31→10:06)
[2020-07-12] MEDS: CefTAZidime PENTAHYDRATE 2 GM in DEXTROSE 5%-WATER 50 ML IV SCH ×3 (04:41→21:56)
[2020-07-12 05:50] LABS: GLUCOSE,POINT OF CARE 130 MG/DL (70-110)
[2020-07-12] MEDS: DIAZEPAM 5 MG TABLET PO SCH ×2 (06:00→17:28)
[2020-07-12] MEDS: ACETAMINOPHEN 650 MG RECTAL SUPPOSITORY PR PRN (06:10)
[2020-07-12] MEDS ORDERED: SODIUM CHLORIDE 0.9% 250 ML IV ONE (06:23)
[2020-07-12 06:41] LABS: BASOPHILS % (AUTO) 0.3 % (0.0-2.0); EOSINOPHILS % (AUTO) 1.4 % (1.0-6.0); HEMATOCRIT 35.1 % (36-46); HEMOGLOBIN 11.5 g/dL (12.0-16.0); LYMPHOCYTES % (AUTO) 8.6 % (22.0-44.0); MEAN CORPUSCULAR HEMOGLOBIN 30.6 pg (26.0-34.0); MEAN CORPUSCULAR HGB CONC 32.6 G/dL (31.0-37.0); MEAN CORPUSCULAR VOLUME 94 fL (80-100); MONOCYTES # (AUTO) 0.7 K/uL (0.1-1.0); MONOCYTES % (AUTO) 6.5 % (2.0-9.0); NEUTROPHILS # (AUTO) 9.5 K/uL (1.8-7.7); NEUTROPHILS % (AUTO) 83.2 % (40.0-70.0); PLATELET COUNT (AUTO) 169 K/uL (150-450); RED BLOOD CELL COUNT(AUTO) 3.75 MIL/uL (4.00-5.20); RED CELL DISTRIBUTION WIDTH 15.2 % (11.5-14.5)
[2020-07-12 07:10] LABS: ALANINE AMINOTRANSFERASE 26 U/L (12-78); ALBUMIN 1.6 g/dL (3.4-5.0); ALKALINE PHOSPHATASE 64 U/L (46-116); ANION GAP 6 mmol/L (8-16); ASPARTATE AMINOTRANSFERASE 44 U/L (15-37); BILIRUBIN,TOTAL 0.6 mg/dL (0.1-1.0); CALCIUM, TOTAL 9.3 mg/dL (8.8-10.5); CARBON DIOXIDE 30 mmol/L (22-29); CHLORIDE 108 mmol/L (98-107); CREATININE 0.43 mg/dL (0.60-1.30); GLOMERULAR FILTR. RATE CALC > 60 mL/min (>60); GLUCOSE,RANDOM 115 mg/dL (70-110); POTASSIUM 3.6 mmol/L (3.5-5.1); SODIUM SERUM 144 mmol/L (136-145); TOTAL PROTEIN, SERUM 5.8 g/dL (6.4-8.2); UREA NITROGEN, BLOOD 10 mg/dL (7-18)
[2020-07-12] MEDS: FAMOTIDINE 10 MG/ML 2 ML VIAL IVP SCH ×2 (08:01→21:56)
[2020-07-12] MEDS: ZINC SULFATE 220 MG CAPSULE PO SCH ×2 (09:00→21:56)
[2020-07-12] MEDS: MULTIVITAMINS WITH MINERALS, THERAPEUTIC TABLET PO SCH ×2 (09:00→09:43)
[2020-07-12] MEDS: CHOLECALCIFEROL (VIT D3) 1,000 UNITS [25 MCG] TABLET PO SCH (09:00)
[2020-07-12] MEDS: ASCORBIC ACID 500 MG TABLET PO SCH ×2 (09:00→21:56)
[2020-07-12] MEDS: MetroNIDAZOLE 500 MG/NACL 100 ML IV SCH ×2 (11:11→18:30)
[2020-07-12 11:23] LABS: ABG A-A DIFF O2 611.8 mmHg (10-20.0); ABG BASE EXCESS 5.3 mmol/L (-2.0-3.0); ABG CARBOXYHEMOGLOBIN 1.2 % (0.0-1.5); ABG HCO3 27.4 mmol/L (22.0-26.0); ABG METHEMOGLOBIN 0.3 % (0.0-1.5); ABG OXYHEMOGLOBIN 73.1 % (94.0-100.0); ABG PCO2 60 mmHg (35-45); ABG PH 7.335 (7.35-7.450); ABG TOTAL HEMOGLOBIN 12.7 G/dL (12.0-18.0); PO2, ARTERIAL BG 40.6 mmHg (75.0-83.0); SOURCE, BLOOD GAS ARTERIAL; TEMPERATURE, FAHRENHEIT, BG 99.2 FAHREN (96.0-98.6)
[2020-07-12] MEDS: INSULIN LISPRO 100 UNITS/ML SQ PRN ×2 (11:23→17:28)
[2020-07-12 11:24] LABS: ABG OXYGEN SATURATION 74.2 % (95.0-98.0); O2 DEVICE,BLOOD GAS CANNULA (ROOM AIR); SITE, BLOOD GAS RT RADIAL
[2020-07-12] MEDS ORDERED: FentaNYL CITRATE PF 100 MCG/2 ML VIAL ONE (12:25)
[2020-07-12] MEDS ORDERED: MIDAZOLAM HCL 2 MG/2 ML VIAL ONE (12:25)
[2020-07-12] MEDS ORDERED: FentaNYL CITRATE PF 100 MCG/2 ML VIAL IVP ONE (12:30)
[2020-07-12] MEDS ORDERED: MIDAZOLAM HCL 2 MG/2 ML VIAL IVP ONE (12:30)
[2020-07-12] MEDS: PROPOFOL 1000 MG/ISO-OSM 100 ML IV PRN ×2 (13:00→17:01)
[2020-07-12] MEDS: FentaNYL CIT 1000MCG/D5%-WATER 100 ML IV PRN ×2 (13:20→18:30)
[2020-07-12 14:17] LABS: ABG A-A DIFF O2 490.2 mmHg (10-20.0); ABG BASE EXCESS 1.9 mmol/L (-2.0-3.0); ABG CARBOXYHEMOGLOBIN 1.2 % (0.0-1.5); ABG HCO3 22.3 mmol/L (22.0-26.0); ABG METHEMOGLOBIN 0.1 % (0.0-1.5); ABG OXYGEN CONTENT 15.6 mL/dL (15.0-23.0); ABG OXYGEN SATURATION 85.1 % (95.0-98.0); ABG TOTAL HEMOGLOBIN 13.2 G/dL (12.0-18.0); PO2, ARTERIAL BG 67.2 mmHg (75.0-83.0); SOURCE, BLOOD GAS ARTERIAL; TEMPERATURE, FAHRENHEIT, BG 97.3 FAHREN (96.0-98.6)
[2020-07-12 14:18] LABS: ABG PCO2 157 mmHg (35-45); ABG PH 6.949 (7.35-7.450); INSPIRATORY TIME, BG 0.9 SEC; O2 DEVICE,BLOOD GAS VENTILATOR (ROOM AIR); PEEP,BG 5 cm H2O; SITE, BLOOD GAS RT RADIAL; SPONTANEOUS VT, BG 207 ml; VENT MODE, BG Press. Control Vent (ROOM AIR)
[2020-07-12] MEDS ORDERED: VECURONIUM BROMIDE 10 MG/VIAL IVP ONE (14:30)
[2020-07-12] MEDS: CISATRACURIUM BESYLATE 50 MG in DEXTROSE 5%-WATER 245 ML IV PRN ×2 (15:09→22:51)
[2020-07-12 16:30] LABS: ABG A-A DIFF O2 487.2 mmHg (10-20.0); ABG BASE EXCESS -0.3 mmol/L (-2.0-3.0); ABG CARBOXYHEMOGLOBIN 0.9 % (0.0-1.5); ABG HCO3 20.6 mmol/L (22.0-26.0); ABG METHEMOGLOBIN 0.1 % (0.0-1.5); ABG OXYGEN CONTENT 15.8 mL/dL (15.0-23.0); ABG OXYGEN SATURATION 87.9 % (95.0-98.0); ABG TOTAL HEMOGLOBIN 12.9 G/dL (12.0-18.0); PO2, ARTERIAL BG 70.1 mmHg (75.0-83.0); SOURCE, BLOOD GAS ARTERIAL; TEMPERATURE, FAHRENHEIT, BG 95.4 FAHREN (96.0-98.6)
[2020-07-12 16:31] LABS: ABG PCO2 160 mmHg (35-45); ABG PH 6.914 (7.35-7.450); O2 DEVICE,BLOOD GAS VENTILATOR (ROOM AIR); SITE, BLOOD GAS RT RADIAL; VENT MODE, BG Press. Control Vent (ROOM AIR)
[2020-07-12 16:32] LABS: INSPIRATORY TIME, BG 0.9 SEC; PEEP,BG 5 cm H2O; SPONTANEOUS VT, BG 223 ml
[2020-07-12 16:40] LABS: GLUCOSE,POINT OF CARE 145 MG/DL (70-110)
[2020-07-12] MEDS: NOREPINEPHRINE 4 MG/D5%-WATER 250 ML IV PRN ×2 (18:52→22:55)
[2020-07-12 19:48] LABS: ABG A-A DIFF O2 473.4 mmHg (10-20.0); ABG BASE EXCESS 0.3 mmol/L (-2.0-3.0); ABG CARBOXYHEMOGLOBIN 1.1 % (0.0-1.5); ABG HCO3 21.1 mmol/L (22.0-26.0); ABG METHEMOGLOBIN 0.1 % (0.0-1.5); ABG OXYGEN CONTENT 14.8 mL/dL (15.0-23.0); ABG OXYHEMOGLOBIN 83.4 % (94.0-100.0); ABG TOTAL HEMOGLOBIN 12.6 G/dL (12.0-18.0); PO2, ARTERIAL BG 61.9 mmHg (75.0-83.0); SOURCE, BLOOD GAS ARTERIAL; TEMPERATURE, FAHRENHEIT, BG 98.6 FAHREN (96.0-98.6)
[2020-07-12 19:49] LABS: ABG PCO2 178 mmHg (35-45); ABG PH 6.891 (7.35-7.450)
[2020-07-12 19:50] LABS: ABG OXYGEN SATURATION 84.4 % (95.0-98.0); O2 DEVICE,BLOOD GAS VENTILATOR (ROOM AIR); SITE, BLOOD GAS RT RADIAL; VENT MODE, BG Press. Control Vent (ROOM AIR); VT, ABG 277 ml
[2020-07-12 19:51] LABS: PEEP,BG 0 cm H2O
[2020-07-12 20:02] LABS: GLUCOSE,POINT OF CARE 184 MG/DL (70-110)
[2020-07-12] MEDS ORDERED: BUMETANIDE 0.25 MG/ML 4 ML VIAL IVP ONE (21:45)
[2020-07-12] MEDS ORDERED: SODIUM BICARBONATE [ADULT] 8.4% 50 MEQ/50 ML SYRINGE IVP ONE (22:00)
[2020-07-13] VITALS: BP 90/50
[2020-07-13 00:58] LABS: GLUCOSE,POINT OF CARE 214 MG/DL (70-110)
[2020-07-13] MEDS: INSULIN LISPRO 100 UNITS/ML SQ PRN ×2 (01:09→11:58)
[2020-07-13] MEDS: MetroNIDAZOLE 500 MG/NACL 100 ML IV SCH ×3 (03:13→19:44)
[2020-07-13 04:00] VITALS: BP 92/53
[2020-07-13] MEDS: CefTAZidime PENTAHYDRATE 2 GM in DEXTROSE 5%-WATER 50 ML IV SCH ×3 (04:44→21:36)
[2020-07-13] MEDS: NOREPINEPHRINE BITARTRATE 16 MG in DEXTROSE 5%-WATER 234 ML IV PRN ×2 (04:44→17:23)
[2020-07-13] MEDS: DIAZEPAM 5 MG TABLET PO SCH ×2 (04:54→18:13)
[2020-07-13] MEDS: PROPOFOL 1000 MG/ISO-OSM 100 ML IV PRN ×2 (04:55→17:30)
[2020-07-13 05:54] LABS: BASOPHILS % (AUTO) 0.2 % (0.0-2.0); EOSINOPHILS % (AUTO) 0.1 % (1.0-6.0); HEMATOCRIT 33.8 % (36-46); HEMOGLOBIN 10.6 g/dL (12.0-16.0); LYMPHOCYTES # (AUTO) 1.1 K/uL (1.0-4.8); LYMPHOCYTES % (AUTO) 3.8 % (22.0-44.0); MEAN CORPUSCULAR HEMOGLOBIN 30.6 pg (26.0-34.0); MEAN CORPUSCULAR HGB CONC 31.3 G/dL (31.0-37.0); MEAN CORPUSCULAR VOLUME 98 fL (80-100); MONOCYTES # (AUTO) 1.6 K/uL (0.1-1.0); MONOCYTES % (AUTO) 5.2 % (2.0-9.0); NEUTROPHILS # (AUTO) 27.4 K/uL (1.8-7.7); PLATELET COUNT (AUTO) 230 K/uL (150-450); RED BLOOD CELL COUNT(AUTO) 3.47 MIL/uL (4.00-5.20); RED CELL DISTRIBUTION WIDTH 15.6 % (11.5-14.5)
[2020-07-13] MEDS ORDERED: PHENYLEPHRINE HCL 800 MG in DEXTROSE 5%-WATER 170 ML IV PRN (06:00)
[2020-07-13 06:05] LABS: NEUTROPHILS % (AUTO) 90.7 % (40.0-70.0)
[2020-07-13 06:14] LABS: ALBUMIN 1.5 g/dL (3.4-5.0); BILIRUBIN,TOTAL 0.3 mg/dL (0.1-1.0); CALCIUM, TOTAL 9.5 mg/dL (8.8-10.5); CREATININE 1.64 mg/dL (0.60-1.30); POTASSIUM 4.7 mmol/L (3.5-5.1)
[2020-07-13] MEDS: HEPARIN SODIUM,PORCINE 5,000 UNITS/ML VIAL SQ SCH ×2 (07:54→16:26)
[2020-07-13] MEDS: CHOLECALCIFEROL (VIT D3) 1,000 UNITS [25 MCG] TABLET PO SCH (07:55)
[2020-07-13] MEDS: MULTIVITAMINS WITH MINERALS, THERAPEUTIC TABLET PO SCH (07:55)
[2020-07-13] MEDS: ZINC SULFATE 220 MG CAPSULE PO SCH ×2 (07:55→21:37)
[2020-07-13] MEDS: ASCORBIC ACID 500 MG TABLET PO SCH ×2 (07:55→21:36)
[2020-07-13] MEDS: FAMOTIDINE 10 MG/ML 2 ML VIAL IVP SCH ×2 (07:56→21:37)
[2020-07-13] MEDS: FentaNYL CIT 1000MCG/D5%-WATER 100 ML IV PRN (07:57)
[2020-07-13 08:00] VITALS: BP 94/54
[2020-07-13 09:43] LABS: ABG A-A DIFF O2 486.9 mmHg (10-20.0); ABG BASE EXCESS 7.6 mmol/L (-2.0-3.0); ABG CARBOXYHEMOGLOBIN 1.1 % (0.0-1.5); ABG HCO3 27.2 mmol/L (22.0-26.0); ABG METHEMOGLOBIN 0.1 % (0.0-1.5); ABG OXYGEN CONTENT 14.1 mL/dL (15.0-23.0); ABG OXYHEMOGLOBIN 83.7 % (94.0-100.0); PO2, ARTERIAL BG 52.4 mmHg (75.0-83.0); SOURCE, BLOOD GAS ARTERIAL; TEMPERATURE, FAHRENHEIT, BG 99.7 FAHREN (96.0-98.6)
[2020-07-13 09:56] LABS: ABG OXYGEN SATURATION 84.7 % (95.0-98.0); ABG PH 6.979 (7.35-7.450); SITE, BLOOD GAS RT RADIAL
[2020-07-13 09:57] LABS: O2 DEVICE,BLOOD GAS VENTILATOR (ROOM AIR); PEEP,BG 0 cm H2O; VENT MODE, BG Press. Control Vent (ROOM AIR); VT, ABG 220 ml
[2020-07-13 09:58] LABS: INSPIRATORY TIME, BG 0.8 SEC
[2020-07-13 10:00] LABS: ABG PCO2 172 mmHg (35-45)
[2020-07-13] MEDS ORDERED: BUMETANIDE 0.25 MG/ML 4 ML VIAL IVP ONE (10:15)
[2020-07-13 11:33] LABS: ABG A-A DIFF O2 484.6 mmHg (10-20.0); ABG CARBOXYHEMOGLOBIN 1.2 % (0.0-1.5); ABG HCO3 30.3 mmol/L (22.0-26.0); ABG METHEMOGLOBIN 0.1 % (0.0-1.5); ABG OXYGEN CONTENT 15.8 mL/dL (15.0-23.0); ABG OXYGEN SATURATION 93.7 % (95.0-98.0); ABG OXYHEMOGLOBIN 92.5 % (94.0-100.0); ABG TOTAL HEMOGLOBIN 12.1 G/dL (12.0-18.0); PO2, ARTERIAL BG 68.7 mmHg (75.0-83.0); SOURCE, BLOOD GAS ARTERIAL; TEMPERATURE, FAHRENHEIT, BG 99.6 FAHREN (96.0-98.6)
[2020-07-13 11:34] LABS: ABG PCO2 158 mmHg (35-45); ABG PH 7.041 (7.35-7.450); O2 DEVICE,BLOOD GAS VENTILATOR (ROOM AIR); PEEP,BG 5 cm H2O; SITE, BLOOD GAS RT RADIAL; SPONTANEOUS VT, BG 260 ml; VT, ABG 270 ml
[2020-07-13 11:46] LABS: GLUCOSE,POINT OF CARE 146 MG/DL (70-110)
[2020-07-13 12:00] VITALS: BP 101/58
[2020-07-13] MEDS: CISATRACURIUM BESYLATE 50 MG in DEXTROSE 5%-WATER 245 ML IV PRN (12:15)
[2020-07-13] MEDS ORDERED: CASPOFUNGIN ACETATE 70 MG in SODIUM CHLORIDE 0.9% 250 ML IV ONE (13:00)
[2020-07-13 16:00] VITALS: BP 106/52
[2020-07-13 17:32] LABS: ABG A-A DIFF O2 501.7 mmHg (10-20.0); ABG CARBOXYHEMOGLOBIN 0.8 % (0.0-1.5); ABG HCO3 29.3 mmol/L (22.0-26.0); ABG METHEMOGLOBIN 0.2 % (0.0-1.5); ABG OXYGEN SATURATION 95.7 % (95.0-98.0); ABG OXYHEMOGLOBIN 94.7 % (94.0-100.0); PO2, ARTERIAL BG 79.2 mmHg (75.0-83.0); SOURCE, BLOOD GAS ARTERIAL; TEMPERATURE, FAHRENHEIT, BG 99.6 FAHREN (96.0-98.6)
[2020-07-13 17:33] LABS: ABG PCO2 131 mmHg (35-45); ABG PH 7.093 (7.35-7.450)
[2020-07-13 17:34] LABS: O2 DEVICE,BLOOD GAS VENTILATOR (ROOM AIR); PEEP,BG 5 cm H2O; SITE, BLOOD GAS RT RADIAL; VT, ABG 270 ml
[2020-07-13 18:03] LABS: GLUCOSE,POINT OF CARE 136 MG/DL (70-110)
[2020-07-13] MEDS: MethylPREDNISolone SOD SUCC 125 MG/2 ML VIAL IVP SCH (18:13)
[2020-07-13 20:00] VITALS: BP 126/67
[2020-07-14] VITALS: BP 110/45
[2020-07-14] MEDS: MethylPREDNISolone SOD SUCC 125 MG/2 ML VIAL IVP SCH ×4 (00:42→18:07)
[2020-07-14] MEDS: HEPARIN SODIUM,PORCINE 5,000 UNITS/ML VIAL SQ SCH ×3 (00:43→16:00)
[2020-07-14] MEDS: CISATRACURIUM BESYLATE 50 MG in DEXTROSE 5%-WATER 245 ML IV PRN ×3 (00:56→19:56)
[2020-07-14] MEDS: INSULIN LISPRO 100 UNITS/ML SQ PRN ×3 (00:58→18:31)
[2020-07-14 01:03] LABS: GLUCOSE,POINT OF CARE 171 MG/DL (70-110)
[2020-07-14] MEDS: PROPOFOL 1000 MG/ISO-OSM 100 ML IV PRN ×3 (01:31→18:09)
[2020-07-14] MEDS: FentaNYL CIT 1000MCG/D5%-WATER 100 ML IV PRN ×2 (01:31→18:08)
[2020-07-14] MEDS: MetroNIDAZOLE 500 MG/NACL 100 ML IV SCH ×3 (03:20→19:56)
[2020-07-14 04:00] VITALS: BP 103/48
[2020-07-14] MEDS: DIAZEPAM 5 MG TABLET PO SCH ×2 (05:26→18:07)
[2020-07-14] MEDS: CefTAZidime PENTAHYDRATE 2 GM in DEXTROSE 5%-WATER 50 ML IV SCH ×3 (05:29→21:35)
[2020-07-14 05:42] LABS: BASOPHILS % (AUTO) 0.2 % (0.0-2.0); EOSINOPHILS % (AUTO) 0 % (1.0-6.0); HEMATOCRIT 34.4 % (36-46); HEMOGLOBIN 10.9 g/dL (12.0-16.0); LYMPHOCYTES # (AUTO) 0.8 K/uL (1.0-4.8); LYMPHOCYTES % (AUTO) 3.6 % (22.0-44.0); MEAN CORPUSCULAR HEMOGLOBIN 30.8 pg (26.0-34.0); MEAN CORPUSCULAR HGB CONC 31.7 G/dL (31.0-37.0); MEAN CORPUSCULAR VOLUME 97 fL (80-100); MONOCYTES # (AUTO) 0.9 K/uL (0.1-1.0); MONOCYTES % (AUTO) 4.1 % (2.0-9.0); NEUTROPHILS # (AUTO) 19.7 K/uL (1.8-7.7); PLATELET COUNT (AUTO) 215 K/uL (150-450); RED BLOOD CELL COUNT(AUTO) 3.54 MIL/uL (4.00-5.20)
[2020-07-14 05:57] LABS: ALBUMIN 1.4 g/dL (3.4-5.0); BILIRUBIN,TOTAL 0.5 mg/dL (0.1-1.0); CALCIUM, TOTAL 8.7 mg/dL (8.8-10.5); CREATININE 2.97 mg/dL (0.60-1.30); POTASSIUM 5.1 mmol/L (3.5-5.1); TOTAL PROTEIN, SERUM 6.3 g/dL (6.4-8.2)
[2020-07-14 06:02] LABS: NEUTROPHILS % (AUTO) 92.1 % (40.0-70.0)
[2020-07-14] MEDS: NOREPINEPHRINE BITARTRATE 16 MG in DEXTROSE 5%-WATER 234 ML IV PRN (06:24)
[2020-07-14] MEDS: FAMOTIDINE 10 MG/ML 2 ML VIAL IVP SCH ×2 (07:45→21:35)
[2020-07-14] MEDS: CHOLECALCIFEROL (VIT D3) 1,000 UNITS [25 MCG] TABLET PO SCH (07:46)
[2020-07-14] MEDS: ASCORBIC ACID 500 MG TABLET PO SCH ×2 (07:46→21:35)
[2020-07-14] MEDS: MULTIVITAMINS WITH MINERALS, THERAPEUTIC TABLET PO SCH (07:46)
[2020-07-14] MEDS: ZINC SULFATE 220 MG CAPSULE PO SCH ×2 (07:47→21:35)
[2020-07-14 08:00] VITALS: BP 121/65
[2020-07-14 09:46] LABS: ABG A-A DIFF O2 524.3 mmHg (10-20.0); ABG BASE EXCESS 2.1 mmol/L (-2.0-3.0); ABG CARBOXYHEMOGLOBIN 0.5 % (0.0-1.5); ABG HCO3 24.7 mmol/L (22.0-26.0); ABG OXYGEN CONTENT 15.7 mL/dL (15.0-23.0); ABG OXYGEN SATURATION 97.9 % (95.0-98.0); ABG OXYHEMOGLOBIN 97.4 % (94.0-100.0); ABG TOTAL HEMOGLOBIN 11.4 G/dL (12.0-18.0); PO2, ARTERIAL BG 100.6 mmHg (75.0-83.0); SOURCE, BLOOD GAS ARTERIAL; TEMPERATURE, FAHRENHEIT, BG 98.6 FAHREN (96.0-98.6)
[2020-07-14 09:47] LABS: ABG PH 7.161 (7.35-7.450)
[2020-07-14 09:48] LABS: ABG PCO2 88 mmHg (35-45); O2 DEVICE,BLOOD GAS VENTILATOR (ROOM AIR); PEEP,BG 5 cm H2O; SITE, BLOOD GAS RT RADIAL; VT, ABG 270 ml
[2020-07-14] MEDS ORDERED: SODIUM CHLORIDE 0.9% 500 ML IV ONE (11:39)
[2020-07-14 12:00] VITALS: BP 117/62
[2020-07-14] MEDS ORDERED: ROCURONIUM BROMIDE 10 MG/ML 5 ML VIAL IVP ONE (12:00)
[2020-07-14] MEDS ORDERED: LIDOCAINE/PF 2% 5 ML VIAL IM ONE (12:00)
[2020-07-14] MEDS ORDERED: ETOMIDATE 2 MG/ML 10 ML VIAL IVP ONE (12:00)
[2020-07-14] MEDS ORDERED: HEPARIN SODIUM,PORCINE 1,000 UNITS/ML VIAL IVP ONE ×2 (14:45)
[2020-07-14] MEDS: CASPOFUNGIN ACETATE 50 MG in SODIUM CHLORIDE 0.9% 250 ML IV SCH (15:07)
[2020-07-14] MEDS ORDERED: SODIUM CHLORIDE 0.9% 2,000 ML ONE (15:53)
[2020-07-14 16:00] VITALS: BP 113/45
[2020-07-14] MEDS ORDERED: HEPARIN SODIUM,PORCINE 1,000 UNITS/ML VIAL ONE (16:43)
[2020-07-14 18:32] LABS: GLUCOSE,POINT OF CARE 192 MG/DL (70-110)
[2020-07-14 20:00] VITALS: BP 128/38
[2020-07-15] VITALS: BP 114/42
[2020-07-15] MEDS: MethylPREDNISolone SOD SUCC 125 MG/2 ML VIAL IVP SCH ×4 (00:19→18:28)
[2020-07-15] MEDS: HEPARIN SODIUM,PORCINE 5,000 UNITS/ML VIAL SQ SCH ×3 (00:19→18:28)
[2020-07-15] MEDS: NOREPINEPHRINE BITARTRATE 16 MG in DEXTROSE 5%-WATER 234 ML IV PRN (02:07)
[2020-07-15] MEDS: INSULIN LISPRO 100 UNITS/ML SQ PRN ×3 (02:08→13:02)
[2020-07-15] MEDS: MetroNIDAZOLE 500 MG/NACL 100 ML IV SCH ×3 (02:09→21:25)
[2020-07-15 02:11] LABS: GLUCOSE,POINT OF CARE 188 MG/DL (70-110)
[2020-07-15] MEDS: CefTAZidime PENTAHYDRATE 2 GM in DEXTROSE 5%-WATER 50 ML IV SCH ×3 (03:29→21:26)
[2020-07-15] MEDS: CISATRACURIUM BESYLATE 50 MG in DEXTROSE 5%-WATER 245 ML IV PRN (03:30)
[2020-07-15] MEDS: PROPOFOL 1000 MG/ISO-OSM 100 ML IV PRN ×3 (03:31→22:16)
[2020-07-15 04:00] VITALS: BP 97/46
[2020-07-15] MEDS: DIAZEPAM 5 MG TABLET PO SCH ×2 (06:00→18:28)
[2020-07-15 06:20] LABS: BASOPHILS % (AUTO) 0.5 % (0.0-2.0); EOSINOPHILS % (AUTO) 0 % (1.0-6.0); HEMATOCRIT 30.2 % (36-46); HEMOGLOBIN 9.7 g/dL (12.0-16.0); LYMPHOCYTES # (AUTO) 0.9 K/uL (1.0-4.8); LYMPHOCYTES % (AUTO) 4.9 % (22.0-44.0); MEAN CORPUSCULAR HGB CONC 32.1 G/dL (31.0-37.0); MEAN CORPUSCULAR VOLUME 97 fL (80-100); MONOCYTES # (AUTO) 0.8 K/uL (0.1-1.0); NEUTROPHILS # (AUTO) 17.5 K/uL (1.8-7.7); PLATELET COUNT (AUTO) 188 K/uL (150-450); RED BLOOD CELL COUNT(AUTO) 3.13 MIL/uL (4.00-5.20); RED CELL DISTRIBUTION WIDTH 15.8 % (11.5-14.5)
[2020-07-15 06:31] LABS: NEUTROPHILS % (AUTO) 90.6 % (40.0-70.0)
[2020-07-15 06:39] LABS: ALBUMIN 1.3 g/dL (3.4-5.0); BILIRUBIN,TOTAL 0.5 mg/dL (0.1-1.0); CALCIUM, TOTAL 8.3 mg/dL (8.8-10.5); CREATININE 2.95 mg/dL (0.60-1.30); POTASSIUM 3.9 mmol/L (3.5-5.1); TOTAL PROTEIN, SERUM 5.8 g/dL (6.4-8.2)
[2020-07-15 08:00] VITALS: BP 111/47
[2020-07-15] MEDS: ZINC SULFATE 220 MG CAPSULE PO SCH ×2 (09:16→21:26)
[2020-07-15] MEDS: MULTIVITAMINS WITH MINERALS, THERAPEUTIC TABLET PO SCH (09:16)
[2020-07-15] MEDS: ASCORBIC ACID 500 MG TABLET PO SCH ×2 (09:16→21:26)
[2020-07-15] MEDS: CHOLECALCIFEROL (VIT D3) 1,000 UNITS [25 MCG] TABLET PO SCH (09:17)
[2020-07-15] MEDS: FAMOTIDINE 10 MG/ML 2 ML VIAL IVP SCH ×2 (09:18→21:26)
[2020-07-15] MEDS: FentaNYL CIT 1000MCG/D5%-WATER 100 ML IV PRN (09:39)
[2020-07-15 12:00] VITALS: BP 111/49
[2020-07-15] MEDS: CASPOFUNGIN ACETATE 50 MG in SODIUM CHLORIDE 0.9% 250 ML IV SCH (14:18)
[2020-07-15 16:00] VITALS: BP 113/48
[2020-07-15 16:12] LABS: GLUCOSE,POINT OF CARE 173 MG/DL (70-110)
[2020-07-15 20:00] VITALS: BP 118/51
[2020-07-15] MEDS ORDERED: SODIUM CHLORIDE 0.9% 250 ML IV ONE (22:14)
[2020-07-16] VITALS: BP 113/50
[2020-07-16 00:35] LABS: GLUCOSE,POINT OF CARE 132 MG/DL (70-110)
[2020-07-16] MEDS: HEPARIN SODIUM,PORCINE 5,000 UNITS/ML VIAL SQ SCH ×4 (00:48→23:28)
[2020-07-16] MEDS: MethylPREDNISolone SOD SUCC 125 MG/2 ML VIAL IVP SCH ×5 (00:48→23:28)
[2020-07-16] MEDS: INSULIN LISPRO 100 UNITS/ML SQ PRN ×4 (02:29→18:50)
[2020-07-16] MEDS: MetroNIDAZOLE 500 MG/NACL 100 ML IV SCH ×3 (03:14→18:53)
[2020-07-16 04:00] VITALS: BP 102/47
[2020-07-16 05:26] LABS: GLUCOSE,POINT OF CARE 149 MG/DL (70-110)
[2020-07-16] MEDS: DIAZEPAM 5 MG TABLET PO SCH ×2 (05:39→18:49)
[2020-07-16] MEDS: CefTAZidime PENTAHYDRATE 2 GM in DEXTROSE 5%-WATER 50 ML IV SCH ×3 (05:39→19:58)
[2020-07-16 05:48] LABS: HEMATOCRIT 28.3 % (36-46); HEMOGLOBIN 9.3 g/dL (12.0-16.0); MEAN CORPUSCULAR HEMOGLOBIN 31.3 pg (26.0-34.0); MEAN CORPUSCULAR HGB CONC 32.9 G/dL (31.0-37.0); MEAN CORPUSCULAR VOLUME 95 fL (80-100); PLATELET COUNT (AUTO) 172 K/uL (150-450); RED BLOOD CELL COUNT(AUTO) 2.98 MIL/uL (4.00-5.20); RED CELL DISTRIBUTION WIDTH 15.6 % (11.5-14.5)
[2020-07-16] MEDS: FentaNYL CIT 1000MCG/D5%-WATER 100 ML IV PRN (06:02)
[2020-07-16 06:28] LABS: ALBUMIN 1.4 g/dL (3.4-5.0); BILIRUBIN,TOTAL 0.5 mg/dL (0.1-1.0); CALCIUM, TOTAL 8.7 mg/dL (8.8-10.5); CREATININE 2.6 mg/dL (0.60-1.30); POTASSIUM 3.9 mmol/L (3.5-5.1); TOTAL PROTEIN, SERUM 5.8 g/dL (6.4-8.2)
[2020-07-16 06:30] LABS: GLUCOSE,POINT OF CARE 140 MG/DL (70-110)
[2020-07-16 08:00] VITALS: BP 93/68
[2020-07-16 08:13] LABS: BAND NEUTROPHILS % (MANUAL) 0 % (0-5)
[2020-07-16 08:14] LABS: LYMPHOCYTES % (MANUAL) 8 % (22-44); MONOCYTES % (MANUAL) 8 % (2-9); SEGMENTED NEUTROPHILS % 84 % (40-70)
[2020-07-16 09:02] LABS: ABG A-A DIFF O2 273.7 mmHg (10-20.0); ABG BASE EXCESS -1.4 mmol/L (-2.0-3.0); ABG CARBOXYHEMOGLOBIN 0.6 % (0.0-1.5); ABG HCO3 22.6 mmol/L (22.0-26.0); ABG METHEMOGLOBIN 0.3 % (0.0-1.5); ABG OXYGEN CONTENT 14.1 mL/dL (15.0-23.0); ABG OXYGEN SATURATION 96.4 % (95.0-98.0); ABG OXYHEMOGLOBIN 95.5 % (94.0-100.0); ABG PCO2 66 mmHg (35-45); ABG PH 7.219 (7.35-7.450); ABG TOTAL HEMOGLOBIN 10.4 G/dL (12.0-18.0); PO2, ARTERIAL BG 81.2 mmHg (75.0-83.0); SOURCE, BLOOD GAS ARTERIAL; TEMPERATURE, FAHRENHEIT, BG 98.7 FAHREN (96.0-98.6)
[2020-07-16 09:03] LABS: O2 DEVICE,BLOOD GAS VENTILATOR (ROOM AIR); PEEP,BG 5 cm H2O; SITE, BLOOD GAS ARTERIAL LINE; SPONTANEOUS VT, BG 278 ml; VT, ABG 270 ml
[2020-07-16] MEDS: ASCORBIC ACID 500 MG TABLET PO SCH ×2 (09:07→19:57)
[2020-07-16] MEDS: ZINC SULFATE 220 MG CAPSULE PO SCH ×2 (09:07→19:57)
[2020-07-16] MEDS: MULTIVITAMINS WITH MINERALS, THERAPEUTIC TABLET PO SCH (09:07)
[2020-07-16] MEDS: CHOLECALCIFEROL (VIT D3) 1,000 UNITS [25 MCG] TABLET PO SCH (09:08)
[2020-07-16] MEDS: FAMOTIDINE 10 MG/ML 2 ML VIAL IVP SCH ×2 (09:09→19:57)
[2020-07-16] MEDS: PROPOFOL 1000 MG/ISO-OSM 100 ML IV PRN (09:11)
[2020-07-16 12:00] VITALS: BP 100/43
[2020-07-16] MEDS: CASPOFUNGIN ACETATE 50 MG in SODIUM CHLORIDE 0.9% 250 ML IV SCH (13:52)
[2020-07-16 16:00] VITALS: BP 100/41
[2020-07-16 18:08] LABS: GLUCOSE,POINT OF CARE 198 MG/DL (70-110)
[2020-07-16 20:00] VITALS: BP 89/49
[2020-07-16 22:32] LABS: GLUCOSE,POINT OF CARE 197 MG/DL (70-110)
[2020-07-17] VITALS: BP 103/41
[2020-07-17] MEDS: MetroNIDAZOLE 500 MG/NACL 100 ML IV SCH ×3 (02:35→18:42)
[2020-07-17] MEDS ORDERED: SODIUM CHLORIDE 0.9% 500 ML IV ONE (03:28)
[2020-07-17 04:00] VITALS: BP 112/44
[2020-07-17 05:11] LABS: GLUCOSE,POINT OF CARE 263 MG/DL (70-110)
[2020-07-17] MEDS: DIAZEPAM 5 MG TABLET PO SCH ×2 (05:12→17:09)
[2020-07-17] MEDS: CefTAZidime PENTAHYDRATE 2 GM in DEXTROSE 5%-WATER 50 ML IV SCH ×3 (05:12→21:05)
[2020-07-17] MEDS: MethylPREDNISolone SOD SUCC 125 MG/2 ML VIAL IVP SCH ×4 (05:13→23:52)
[2020-07-17] MEDS: INSULIN LISPRO 100 UNITS/ML SQ PRN ×3 (05:14→18:45)
[2020-07-17 05:57] LABS: POTASSIUM 4.4 mmol/L (3.5-5.1)
[2020-07-17 06:13] LABS: CREATININE 3.96 mg/dL (0.60-1.30)
[2020-07-17] MEDS: HEPARIN SODIUM,PORCINE 5,000 UNITS/ML VIAL SQ SCH ×3 (07:59→23:52)
[2020-07-17] MEDS: ZINC SULFATE 220 MG CAPSULE PO SCH ×2 (07:59→21:08)
[2020-07-17] MEDS: MULTIVITAMINS WITH MINERALS, THERAPEUTIC TABLET PO SCH (07:59)
[2020-07-17] MEDS: CHOLECALCIFEROL (VIT D3) 1,000 UNITS [25 MCG] TABLET PO SCH (07:59)
[2020-07-17] MEDS: FAMOTIDINE 10 MG/ML 2 ML VIAL IVP SCH ×2 (07:59→21:08)
[2020-07-17] MEDS: ASCORBIC ACID 500 MG TABLET PO SCH ×2 (07:59→21:08)
[2020-07-17 08:00] VITALS: BP 112/41
[2020-07-17] MEDS ORDERED: SODIUM CHLORIDE 0.9% 250 ML IV ONE (08:16)
[2020-07-17 11:54] LABS: GLUCOSE,POINT OF CARE 198 MG/DL (70-110)
[2020-07-17 12:00] VITALS: BP 109/41
[2020-07-17] MEDS ORDERED: ALBUMIN HUMAN 25%-25GM/100ML 100 ML IV ONE ×2 (13:00→15:00)
[2020-07-17] MEDS: CASPOFUNGIN ACETATE 50 MG in SODIUM CHLORIDE 0.9% 250 ML IV SCH (13:13)
[2020-07-17 16:00] VITALS: BP 112/45
[2020-07-17] MEDS ORDERED: HEPARIN SODIUM,PORCINE 1,000 UNITS/ML VIAL IVP ONE (17:53)
[2020-07-17] MEDS: NOREPINEPHRINE BITARTRATE 16 MG in DEXTROSE 5%-WATER 234 ML IV PRN (18:03)
[2020-07-17 18:28] LABS: GLUCOSE,POINT OF CARE 154 MG/DL (70-110)
[2020-07-17 20:00] VITALS: BP 105/37
[2020-07-18] VITALS: BP 105/40
[2020-07-18] MEDS: INSULIN LISPRO 100 UNITS/ML SQ PRN ×4 (00:09→17:18)
[2020-07-18 00:26] LABS: GLUCOSE,POINT OF CARE 242 MG/DL (70-110)
[2020-07-18] MEDS ORDERED: SODIUM CHLORIDE 0.9% 250 ML IV ONE (02:49)
[2020-07-18] MEDS: MetroNIDAZOLE 500 MG/NACL 100 ML IV SCH ×3 (03:03→20:18)
[2020-07-18 04:00] VITALS: BP 113/43
[2020-07-18] MEDS: CefTAZidime PENTAHYDRATE 2 GM in DEXTROSE 5%-WATER 50 ML IV SCH ×3 (05:30→20:19)
[2020-07-18 05:49] LABS: HEMATOCRIT 25.3 % (36-46); HEMOGLOBIN 8.3 g/dL (12.0-16.0); MEAN CORPUSCULAR HGB CONC 32.7 G/dL (31.0-37.0); MEAN CORPUSCULAR VOLUME 95 fL (80-100); PLATELET COUNT (AUTO) 191 K/uL (150-450); RED BLOOD CELL COUNT(AUTO) 2.66 MIL/uL (4.00-5.20); RED CELL DISTRIBUTION WIDTH 15.6 % (11.5-14.5)
[2020-07-18] MEDS: MethylPREDNISolone SOD SUCC 125 MG/2 ML VIAL IVP SCH ×3 (05:59→17:16)
[2020-07-18] MEDS: DIAZEPAM 5 MG TABLET PO SCH ×2 (06:00→17:18)
[2020-07-18 06:04] LABS: GLUCOSE,POINT OF CARE 182 MG/DL (70-110)
[2020-07-18 06:13] LABS: ALBUMIN 2.5 g/dL (3.4-5.0); BILIRUBIN,TOTAL 0.7 mg/dL (0.1-1.0); CALCIUM, TOTAL 9.1 mg/dL (8.8-10.5); CREATININE 3.15 mg/dL (0.60-1.30); POTASSIUM 3.9 mmol/L (3.5-5.1)
[2020-07-18 08:00] VITALS: BP 122/43
[2020-07-18 08:43] LABS: BAND NEUTROPHILS % (MANUAL) 3 % (0-5); CORRECTED WHITE BLOOD COUNT 14.4 K/uL (4.5-11.0); LYMPHOCYTES % (MANUAL) 5 % (22-44); MONOCYTES % (MANUAL) 11 % (2-9); MYELOCYTES % 1 % (0-0); SEGMENTED NEUTROPHILS % 80 % (40-70)
[2020-07-18] MEDS: MULTIVITAMINS WITH MINERALS, THERAPEUTIC TABLET PO SCH (09:20)
[2020-07-18] MEDS: ASCORBIC ACID 500 MG TABLET PO SCH ×2 (09:21→20:19)
[2020-07-18] MEDS: HEPARIN SODIUM,PORCINE 5,000 UNITS/ML VIAL SQ SCH ×2 (09:21→17:07)
[2020-07-18] MEDS: ZINC SULFATE 220 MG CAPSULE PO SCH ×2 (09:21→20:20)
[2020-07-18] MEDS: FAMOTIDINE 10 MG/ML 2 ML VIAL IVP SCH ×2 (09:21→20:19)
[2020-07-18] MEDS: CHOLECALCIFEROL (VIT D3) 1,000 UNITS [25 MCG] TABLET PO SCH (09:21)
[2020-07-18 11:40] LABS: GLUCOSE,POINT OF CARE 245 MG/DL (70-110)
[2020-07-18 12:00] VITALS: BP 125/42
[2020-07-18 12:00] LABS: ABG A-A DIFF O2 164.2 mmHg (10-20.0); ABG BASE EXCESS -5.9 mmol/L (-2.0-3.0); ABG CARBOXYHEMOGLOBIN 1.8 % (0.0-1.5); ABG HCO3 19.2 mmol/L (22.0-26.0); ABG METHEMOGLOBIN 0.3 % (0.0-1.5); ABG OXYGEN CONTENT 9.7 mL/dL (15.0-23.0); ABG OXYHEMOGLOBIN 79.1 % (94.0-100.0); ABG TOTAL HEMOGLOBIN 8.7 G/dL (12.0-18.0); SOURCE, BLOOD GAS ARTERIAL; TEMPERATURE, FAHRENHEIT, BG 96.4 FAHREN (96.0-98.6)
[2020-07-18 12:34] LABS: ABG OXYGEN SATURATION 80.8 % (95.0-98.0); ABG PCO2 70 mmHg (35-45); ABG PH 7.138 (7.35-7.450); PO2, ARTERIAL BG 42.4 mmHg (75.0-83.0)
[2020-07-18 12:35] LABS: O2 DEVICE,BLOOD GAS VENTILATOR (ROOM AIR); PEEP,BG 5 cm H2O; SITE, BLOOD GAS ARTERIAL LINE; VT, ABG 270 ml
[2020-07-18] MEDS: NOREPINEPHRINE BITARTRATE 16 MG in DEXTROSE 5%-WATER 234 ML IV PRN (13:53)
[2020-07-18] MEDS: CASPOFUNGIN ACETATE 50 MG in SODIUM CHLORIDE 0.9% 250 ML IV SCH (13:54)
[2020-07-18 16:00] VITALS: BP 140/59
[2020-07-18 16:26] LABS: ABG A-A DIFF O2 323.7 mmHg (10-20.0); ABG BASE EXCESS -5.2 mmol/L (-2.0-3.0); ABG CARBOXYHEMOGLOBIN 0.5 % (0.0-1.5); ABG HCO3 20.2 mmol/L (22.0-26.0); ABG METHEMOGLOBIN 0.2 % (0.0-1.5); ABG OXYGEN CONTENT 11.9 mL/dL (15.0-23.0); ABG OXYGEN SATURATION 92.1 % (95.0-98.0); ABG OXYHEMOGLOBIN 91.5 % (94.0-100.0); ABG PCO2 46 mmHg (35-45); ABG PH 7.284 (7.35-7.450); ABG TOTAL HEMOGLOBIN 9.2 G/dL (12.0-18.0); PO2, ARTERIAL BG 55.4 mmHg (75.0-83.0); SOURCE, BLOOD GAS ARTERIAL; TEMPERATURE, FAHRENHEIT, BG 96.1 FAHREN (96.0-98.6)
[2020-07-18 17:35] LABS: O2 DEVICE,BLOOD GAS VENTILATOR (ROOM AIR); SITE, BLOOD GAS ARTERIAL LINE
[2020-07-18 17:36] LABS: PEEP,BG 5 cm H2O; VENT MODE, BG Press. Control Vent (ROOM AIR); VT, ABG 339 ml
[2020-07-18 17:37] LABS: INSPIRATORY TIME, BG 0.6 SEC
[2020-07-18 17:53] LABS: GLUCOSE,POINT OF CARE 278 MG/DL (70-110)
[2020-07-18 20:00] VITALS: BP 123/48
[2020-07-18] MEDS: PROPOFOL 1000 MG/ISO-OSM 100 ML IV PRN (20:19)
[2020-07-19] VITALS: BP 114/48
[2020-07-19] MEDS: HEPARIN SODIUM,PORCINE 5,000 UNITS/ML VIAL SQ SCH ×4 (00:45→23:28)
[2020-07-19] MEDS: MethylPREDNISolone SOD SUCC 125 MG/2 ML VIAL IVP SCH ×5 (00:46→23:28)
[2020-07-19] MEDS: INSULIN LISPRO 100 UNITS/ML SQ PRN ×4 (00:47→23:41)
[2020-07-19 01:04] LABS: GLUCOSE,POINT OF CARE 192 MG/DL (70-110)
[2020-07-19] MEDS: MetroNIDAZOLE 500 MG/NACL 100 ML IV SCH ×3 (03:07→18:08)
[2020-07-19 04:00] VITALS: BP 118/47
[2020-07-19] MEDS: CefTAZidime PENTAHYDRATE 2 GM in DEXTROSE 5%-WATER 50 ML IV SCH ×3 (04:09→21:39)
[2020-07-19] MEDS: DIAZEPAM 5 MG TABLET PO SCH ×2 (06:00→17:58)
[2020-07-19 06:52] LABS: GLUCOSE,POINT OF CARE 211 MG/DL (70-110)
[2020-07-19 07:46] LABS: HEMATOCRIT 24.6 % (36-46); MEAN CORPUSCULAR HEMOGLOBIN 30.5 pg (26.0-34.0); MEAN CORPUSCULAR HGB CONC 32.5 G/dL (31.0-37.0); MEAN CORPUSCULAR VOLUME 94 fL (80-100); PLATELET COUNT (AUTO) 194 K/uL (150-450); RED BLOOD CELL COUNT(AUTO) 2.62 MIL/uL (4.00-5.20); RED CELL DISTRIBUTION WIDTH 15.6 % (11.5-14.5)
[2020-07-19 08:00] VITALS: BP 114/46
[2020-07-19 08:10] LABS: ALBUMIN 1.9 g/dL (3.4-5.0); BILIRUBIN,TOTAL 0.7 mg/dL (0.1-1.0); CALCIUM, TOTAL 9.6 mg/dL (8.8-10.5); CREATININE 4.39 mg/dL (0.60-1.30); POTASSIUM 3.5 mmol/L (3.5-5.1); TOTAL PROTEIN, SERUM 5.5 g/dL (6.4-8.2)
[2020-07-19] MEDS: ZINC SULFATE 220 MG CAPSULE PO SCH ×2 (09:01→21:40)
[2020-07-19] MEDS: MULTIVITAMINS WITH MINERALS, THERAPEUTIC TABLET PO SCH (09:01)
[2020-07-19] MEDS: CHOLECALCIFEROL (VIT D3) 1,000 UNITS [25 MCG] TABLET PO SCH (09:01)
[2020-07-19] MEDS: ASCORBIC ACID 500 MG TABLET PO SCH ×2 (09:01→21:40)
[2020-07-19] MEDS: FAMOTIDINE 10 MG/ML 2 ML VIAL IVP SCH ×2 (09:01→21:40)
[2020-07-19] MEDS: MICONAZOLE NITRATE 2% 142 GM CREAM [BAZA] TP SCH (09:02)
[2020-07-19] MEDS: PROPOFOL 1000 MG/ISO-OSM 100 ML IV PRN ×2 (09:09→17:59)
[2020-07-19] MEDS ORDERED: SODIUM CHLORIDE 0.9% 2,000 ML ONE (09:50)
[2020-07-19 10:22] LABS: BAND NEUTROPHILS % (MANUAL) 8 % (0-5); LYMPHOCYTES % (MANUAL) 8 % (22-44); MONOCYTES % (MANUAL) 3 % (2-9); SEGMENTED NEUTROPHILS % 81 % (40-70)
[2020-07-19 12:00] VITALS: BP 116/47
[2020-07-19 12:42] LABS: GLUCOSE,POINT OF CARE 112 MG/DL (70-110)
[2020-07-19] MEDS: CASPOFUNGIN ACETATE 50 MG in SODIUM CHLORIDE 0.9% 250 ML IV SCH (13:44)
[2020-07-19 16:00] VITALS: BP 123/43
[2020-07-19] MEDS ORDERED: ALBUMIN HUMAN 25%-12.5GM/50ML IV BOTTLE ONE (17:31)
[2020-07-19] MEDS ORDERED: HEPARIN SODIUM,PORCINE 1,000 UNITS/ML VIAL ONE (17:31)
[2020-07-19] MEDS: NOREPINEPHRINE 4 MG/D5%-WATER 250 ML IV PRN (18:08)
[2020-07-19 18:14] LABS: GLUCOSE,POINT OF CARE 177 MG/DL (70-110)
[2020-07-19 20:00] VITALS: BP 11/47
[2020-07-19 23:52] LABS: GLUCOSE,POINT OF CARE 169 MG/DL (70-110)
[2020-07-20] VITALS: BP 104/40
[2020-07-20] MEDS: MetroNIDAZOLE 500 MG/NACL 100 ML IV SCH ×3 (02:46→18:56)
[2020-07-20 04:00] VITALS: BP 101/48
[2020-07-20] MEDS: DIAZEPAM 5 MG TABLET PO SCH ×2 (05:00→18:55)
[2020-07-20] MEDS: CefTAZidime PENTAHYDRATE 2 GM in DEXTROSE 5%-WATER 50 ML IV SCH ×3 (05:00→21:09)
[2020-07-20] MEDS: MethylPREDNISolone SOD SUCC 125 MG/2 ML VIAL IVP SCH ×3 (05:01→18:55)
[2020-07-20 05:21] LABS: HEMATOCRIT 24.1 % (36-46); HEMOGLOBIN 7.8 g/dL (12.0-16.0); MEAN CORPUSCULAR HEMOGLOBIN 30.7 pg (26.0-34.0); MEAN CORPUSCULAR HGB CONC 32.3 G/dL (31.0-37.0); MEAN CORPUSCULAR VOLUME 95 fL (80-100); PLATELET COUNT (AUTO) 219 K/uL (150-450); RED BLOOD CELL COUNT(AUTO) 2.53 MIL/uL (4.00-5.20); RED CELL DISTRIBUTION WIDTH 16.4 % (11.5-14.5)
[2020-07-20] MEDS: INSULIN LISPRO 100 UNITS/ML SQ PRN ×3 (05:30→18:51)
[2020-07-20 05:40] LABS: GLUCOSE,POINT OF CARE 152 MG/DL (70-110)
[2020-07-20 05:55] LABS: BILIRUBIN,TOTAL 0.7 mg/dL (0.1-1.0); CALCIUM, TOTAL 9.2 mg/dL (8.8-10.5); CREATININE 2.91 mg/dL (0.60-1.30); POTASSIUM 3.2 mmol/L (3.5-5.1); TOTAL PROTEIN, SERUM 5.3 g/dL (6.4-8.2)
[2020-07-20] MEDS ORDERED: SODIUM CHLORIDE 0.9% 250 ML IV ONE (06:28)
[2020-07-20 08:00] VITALS: BP 117/45
[2020-07-20] MEDS: ZINC SULFATE 220 MG CAPSULE PO SCH ×2 (08:27→21:09)
[2020-07-20] MEDS: ASCORBIC ACID 500 MG TABLET PO SCH ×2 (08:27→21:09)
[2020-07-20] MEDS: MULTIVITAMINS WITH MINERALS, THERAPEUTIC TABLET PO SCH (08:27)
[2020-07-20] MEDS: CHOLECALCIFEROL (VIT D3) 1,000 UNITS [25 MCG] TABLET PO SCH (08:27)
[2020-07-20] MEDS: FAMOTIDINE 10 MG/ML 2 ML VIAL IVP SCH ×2 (08:28→21:09)
[2020-07-20] MEDS: HEPARIN SODIUM,PORCINE 5,000 UNITS/ML VIAL SQ SCH ×2 (08:29→16:24)
[2020-07-20] MEDS: MICONAZOLE NITRATE 2% 142 GM CREAM [BAZA] TP SCH (08:30)
[2020-07-20 09:47] LABS: BAND NEUTROPHILS % (MANUAL) 2 % (0-5); CORRECTED WHITE BLOOD COUNT 18.4 K/uL (4.5-11.0); LYMPHOCYTES % (MANUAL) 7 % (22-44); MONOCYTES % (MANUAL) 8 % (2-9); MYELOCYTES % 2 % (0-0); SEGMENTED NEUTROPHILS % 81 % (40-70)
[2020-07-20] MEDS ORDERED: POTASSIUM CHLORIDE 20 MEQ ER TABLET NG ONE (10:30)
[2020-07-20] MEDS: PROPOFOL 1000 MG/ISO-OSM 100 ML IV PRN ×2 (10:52→21:12)
[2020-07-20 12:02] LABS: GLUCOSE,POINT OF CARE 194 MG/DL (70-110)
[2020-07-20] MEDS: CASPOFUNGIN ACETATE 50 MG in SODIUM CHLORIDE 0.9% 250 ML IV SCH (12:33)
[2020-07-20 16:00] VITALS: BP 114/41
[2020-07-20 20:00] VITALS: BP 127/50
[2020-07-20 21:24] LABS: GLUCOSE,POINT OF CARE 150 MG/DL (70-110)
[2020-07-21] VITALS: BP 127/48
[2020-07-21] MEDS: INSULIN LISPRO 100 UNITS/ML SQ PRN ×3 (00:34→13:50)
[2020-07-21] MEDS: MethylPREDNISolone SOD SUCC 125 MG/2 ML VIAL IVP SCH ×4 (00:37→18:05)
[2020-07-21] MEDS: HEPARIN SODIUM,PORCINE 5,000 UNITS/ML VIAL SQ SCH ×2 (00:38→08:06)
[2020-07-21 01:20] LABS: GLUCOSE,POINT OF CARE 164 MG/DL (70-110)
[2020-07-21] MEDS: MetroNIDAZOLE 500 MG/NACL 100 ML IV SCH ×3 (02:49→20:13)
[2020-07-21 04:00] VITALS: BP 131/50
[2020-07-21] MEDS ORDERED: SODIUM CHLORIDE 0.9% 250 ML IV ONE (05:16)
[2020-07-21] MEDS: CefTAZidime PENTAHYDRATE 2 GM in DEXTROSE 5%-WATER 50 ML IV SCH ×2 (05:19→13:24)
[2020-07-21] MEDS: DIAZEPAM 5 MG TABLET PO SCH ×2 (05:21→18:05)
[2020-07-21 05:24] LABS: GLUCOSE,POINT OF CARE 170 MG/DL (70-110)
[2020-07-21 05:43] LABS: HEMATOCRIT 21.9 % (36-46); HEMOGLOBIN 7.5 g/dL (12.0-16.0); MEAN CORPUSCULAR HEMOGLOBIN 30.9 pg (26.0-34.0); MEAN CORPUSCULAR HGB CONC 34.2 G/dL (31.0-37.0); MEAN CORPUSCULAR VOLUME 90 fL (80-100); PLATELET COUNT (AUTO) 247 K/uL (150-450); RED BLOOD CELL COUNT(AUTO) 2.42 MIL/uL (4.00-5.20); RED CELL DISTRIBUTION WIDTH 15.2 % (11.5-14.5)
[2020-07-21 05:47] LABS: ALBUMIN 1.9 g/dL (3.4-5.0); BILIRUBIN,TOTAL 0.7 mg/dL (0.1-1.0); CALCIUM, TOTAL 9.3 mg/dL (8.8-10.5); CREATININE 3.95 mg/dL (0.60-1.30); POTASSIUM 4.1 mmol/L (3.5-5.1); TOTAL PROTEIN, SERUM 5.2 g/dL (6.4-8.2)
[2020-07-21 08:00] VITALS: BP_SYST 112; BP_SYST 115; BP_DIAS 37; BP_DIAS 58
[2020-07-21] MEDS: MULTIVITAMINS WITH MINERALS, THERAPEUTIC TABLET PO SCH (08:06)
[2020-07-21] MEDS: MICONAZOLE NITRATE 2% 142 GM CREAM [BAZA] TP SCH (08:06)
[2020-07-21] MEDS: CHOLECALCIFEROL (VIT D3) 1,000 UNITS [25 MCG] TABLET PO SCH (08:06)
[2020-07-21] MEDS: ZINC SULFATE 220 MG CAPSULE PO SCH ×2 (08:06→21:10)
[2020-07-21] MEDS: FAMOTIDINE 10 MG/ML 2 ML VIAL IVP SCH ×2 (08:06→21:10)
[2020-07-21] MEDS: ASCORBIC ACID 500 MG TABLET PO SCH ×2 (08:06→21:10)
[2020-07-21 09:16] LABS: BAND NEUTROPHILS % (MANUAL) 2 % (0-5); LYMPHOCYTES % (MANUAL) 8 % (22-44); MONOCYTES % (MANUAL) 7 % (2-9); MYELOCYTES % 2 % (0-0); SEGMENTED NEUTROPHILS % 81 % (40-70)
[2020-07-21 11:04] LABS: INR 1.3 (0.9-1.1); PROTHROMBIN TIME 13.9 SEC (9.4-11.6)
[2020-07-21] MEDS: PROPOFOL 1000 MG/ISO-OSM 100 ML IV PRN ×2 (11:23→20:14)
[2020-07-21] MEDS: PANTOPRAZOLE SODIUM 80 MG in SODIUM CHLORIDE 0.9% 100 ML IV SCH ×2 (11:39→18:44)
[2020-07-21 12:00] VITALS: BP 115/37
[2020-07-21] MEDS: CASPOFUNGIN ACETATE 50 MG in SODIUM CHLORIDE 0.9% 250 ML IV SCH (13:26)
[2020-07-21] MEDS ORDERED: ALBUMIN HUMAN 25%-12.5GM/50ML 50 ML IV ONE ×2 (13:30)
[2020-07-21] MEDS: NOREPINEPHRINE 4 MG/D5%-WATER 250 ML IV PRN (13:35)
[2020-07-21 13:57] LABS: GLUCOSE,POINT OF CARE 187 MG/DL (70-110)
[2020-07-21 16:00] VITALS: BP 126/31
[2020-07-21 18:11] LABS: GLUCOSE,POINT OF CARE 100 MG/DL (70-110)
[2020-07-21 20:00] VITALS: BP 122/45
[2020-07-22] VITALS (8 sets, daily range): BP systolic 102–133; BP diastolic 26–55
[2020-07-22] MEDS: MethylPREDNISolone SOD SUCC 125 MG/2 ML VIAL IVP SCH ×4 (00:24→17:59)
[2020-07-22] MEDS: INSULIN LISPRO 100 UNITS/ML SQ PRN ×2 (00:26→11:54)
[2020-07-22 00:28] LABS: GLUCOSE,POINT OF CARE 152 MG/DL (70-110)
[2020-07-22] MEDS: MetroNIDAZOLE 500 MG/NACL 100 ML IV SCH ×3 (03:21→17:59)
[2020-07-22] MEDS: PANTOPRAZOLE SODIUM 80 MG in SODIUM CHLORIDE 0.9% 100 ML IV SCH ×2 (05:02→15:33)
[2020-07-22 05:17] LABS: HEMATOCRIT 23.6 % (36-46); HEMOGLOBIN 7.5 g/dL (12.0-16.0); MEAN CORPUSCULAR HEMOGLOBIN 30.9 pg (26.0-34.0); MEAN CORPUSCULAR VOLUME 97 fL (80-100); PLATELET COUNT (AUTO) 262 K/uL (150-450); RED BLOOD CELL COUNT(AUTO) 2.44 MIL/uL (4.00-5.20); RED CELL DISTRIBUTION WIDTH 16.7 % (11.5-14.5)
[2020-07-22 05:43] LABS: ALBUMIN 2.1 g/dL (3.4-5.0); BILIRUBIN,TOTAL 0.7 mg/dL (0.1-1.0); CALCIUM, TOTAL 10.2 mg/dL (8.8-10.5); CREATININE 2.51 mg/dL (0.60-1.30); POTASSIUM 4.9 mmol/L (3.5-5.1)
[2020-07-22] MEDS: DIAZEPAM 5 MG TABLET PO SCH ×2 (05:45→17:59)
[2020-07-22] MEDS: PROPOFOL 1000 MG/ISO-OSM 100 ML IV PRN (06:10)
[2020-07-22 06:50] LABS: BAND NEUTROPHILS % (MANUAL) 17 % (0-5); CORRECTED WHITE BLOOD COUNT 19.4 K/uL (4.5-11.0); LYMPHOCYTES % (MANUAL) 8 % (22-44); METAMYELOCYTES % 3 % (0-0); MONOCYTES % (MANUAL) 15 % (2-9); MYELOCYTES % 9 % (0-0); SEGMENTED NEUTROPHILS % 48 % (40-70)
[2020-07-22 07:00] LABS: GLUCOSE,POINT OF CARE 151 MG/DL (70-110)
[2020-07-22] MEDS ORDERED: SODIUM CHLORIDE 0.9% 250 ML IV ONE (08:31)
[2020-07-22] MEDS: ASCORBIC ACID 500 MG TABLET PO SCH ×2 (08:33→20:09)
[2020-07-22] MEDS: CHOLECALCIFEROL (VIT D3) 1,000 UNITS [25 MCG] TABLET PO SCH (08:33)
[2020-07-22] MEDS: MULTIVITAMINS WITH MINERALS, THERAPEUTIC TABLET PO SCH (08:33)
[2020-07-22] MEDS: MICONAZOLE NITRATE 2% 142 GM CREAM [BAZA] TP SCH (08:33)
[2020-07-22] MEDS: FAMOTIDINE 10 MG/ML 2 ML VIAL IVP SCH ×2 (08:33→20:10)
[2020-07-22] MEDS: ZINC SULFATE 220 MG CAPSULE PO SCH ×2 (08:33→20:09)
[2020-07-22] MEDS: MORPHINE SULFATE 2 MG/ML SYRINGE IVP PRN (10:52)
[2020-07-22] MEDS: CASPOFUNGIN ACETATE 50 MG in SODIUM CHLORIDE 0.9% 250 ML IV SCH (11:52)
[2020-07-22] MEDS: EPOETIN ALFA 10,000 UNITS/ML VIAL SQ SCH (14:23)
[2020-07-22] MEDS ORDERED: SODIUM CHLORIDE 0.9% 1,000 ML ONE (15:34)
[2020-07-22] MEDS: NOREPINEPHRINE 4 MG/D5%-WATER 250 ML IV PRN (16:21)
[2020-07-22 18:49] LABS: GLUCOSE,POINT OF CARE 132 MG/DL (70-110)
[2020-07-22 18:49] LABS: GLUCOSE,POINT OF CARE 162 MG/DL (70-110)
[2020-07-23] VITALS: BP 125/46
[2020-07-23] MEDS: MethylPREDNISolone SOD SUCC 125 MG/2 ML VIAL IVP SCH ×4 (00:09→17:17)
[2020-07-23] MEDS: INSULIN LISPRO 100 UNITS/ML SQ PRN ×2 (00:10→17:17)
[2020-07-23] MEDS: PANTOPRAZOLE SODIUM 80 MG in SODIUM CHLORIDE 0.9% 100 ML IV SCH ×3 (01:04→21:48)
[2020-07-23 01:42] LABS: GLUCOSE,POINT OF CARE 151 MG/DL (70-110)
[2020-07-23] MEDS: MetroNIDAZOLE 500 MG/NACL 100 ML IV SCH ×2 (03:07→11:06)
[2020-07-23 04:00] VITALS: BP 113/37
[2020-07-23] MEDS ORDERED: SODIUM CHLORIDE 0.9% 500 ML IV ONE (04:55)
[2020-07-23 05:08] LABS: HEMATOCRIT 21.4 % (36-46); MEAN CORPUSCULAR HEMOGLOBIN 30.2 pg (26.0-34.0); MEAN CORPUSCULAR HGB CONC 32.9 G/dL (31.0-37.0); MEAN CORPUSCULAR VOLUME 92 fL (80-100); PLATELET COUNT (AUTO) 250 K/uL (150-450); RED BLOOD CELL COUNT(AUTO) 2.33 MIL/uL (4.00-5.20); RED CELL DISTRIBUTION WIDTH 15.4 % (11.5-14.5)
[2020-07-23 05:26] LABS: BILIRUBIN,TOTAL 0.8 mg/dL (0.1-1.0); CALCIUM, TOTAL 7.7 mg/dL (8.8-10.5); CREATININE 1.91 mg/dL (0.60-1.30); PHOSPHORUS 2.6 mg/dL (2.5-4.9); POTASSIUM 3.6 mmol/L (3.5-5.1); TOTAL PROTEIN, SERUM 4.8 g/dL (6.4-8.2)
[2020-07-23 05:55] LABS: BAND NEUTROPHILS % (MANUAL) 12 % (0-5); CORRECTED WHITE BLOOD COUNT 21.6 K/uL (4.5-11.0); LYMPHOCYTES % (MANUAL) 2 % (22-44); METAMYELOCYTES % 3 % (0-0); MONOCYTES % (MANUAL) 6 % (2-9); MYELOCYTES % 1 % (0-0); SEGMENTED NEUTROPHILS % 76 % (40-70)
[2020-07-23] MEDS: DIAZEPAM 5 MG TABLET PO SCH ×2 (06:15→17:17)
[2020-07-23 07:01] LABS: GLUCOSE,POINT OF CARE 117 MG/DL (70-110)
[2020-07-23 08:00] VITALS: BP 134/48
[2020-07-23] MEDS: ASCORBIC ACID 500 MG TABLET PO SCH ×2 (08:01→21:48)
[2020-07-23] MEDS: MICONAZOLE NITRATE 2% 142 GM CREAM [BAZA] TP SCH (08:01)
[2020-07-23] MEDS: MULTIVITAMINS WITH MINERALS, THERAPEUTIC TABLET PO SCH (08:01)
[2020-07-23] MEDS: CHOLECALCIFEROL (VIT D3) 1,000 UNITS [25 MCG] TABLET PO SCH (08:02)
[2020-07-23] MEDS: FAMOTIDINE 10 MG/ML 2 ML VIAL IVP SCH ×2 (08:02→21:47)
[2020-07-23] MEDS: ZINC SULFATE 220 MG CAPSULE PO SCH ×2 (08:02→21:47)
[2020-07-23 12:00] VITALS: BP 131/42
[2020-07-23] MEDS: CASPOFUNGIN ACETATE 50 MG in SODIUM CHLORIDE 0.9% 250 ML IV SCH (13:31)
[2020-07-23 16:00] VITALS: BP 126/44
[2020-07-23] MEDS ORDERED: HEPARIN SODIUM,PORCINE 1,000 UNITS/ML VIAL IVP ONE (16:16)
[2020-07-23 18:41] LABS: GLUCOSE,POINT OF CARE 161 MG/DL (70-110)
[2020-07-23 20:00] VITALS: BP 136/48
[2020-07-24] VITALS: BP 136/47
[2020-07-24] MEDS: MethylPREDNISolone SOD SUCC 125 MG/2 ML VIAL IVP SCH ×4 (00:11→18:09)
[2020-07-24] MEDS: INSULIN LISPRO 100 UNITS/ML SQ PRN ×4 (00:24→18:17)
[2020-07-24 00:30] LABS: GLUCOSE,POINT OF CARE 174 MG/DL (70-110)
[2020-07-24 04:00] VITALS: BP 148/50
[2020-07-24] MEDS: DIAZEPAM 5 MG TABLET PO SCH ×2 (05:22→08:41)
[2020-07-24] MEDS: PANTOPRAZOLE SODIUM 80 MG in SODIUM CHLORIDE 0.9% 100 ML IV SCH ×2 (05:23→18:09)
[2020-07-24 05:29] LABS: GLUCOSE,POINT OF CARE 176 MG/DL (70-110)
[2020-07-24 05:37] LABS: HEMATOCRIT 21.9 % (36-46); HEMOGLOBIN 7.3 g/dL (12.0-16.0); MEAN CORPUSCULAR HEMOGLOBIN 30.8 pg (26.0-34.0); MEAN CORPUSCULAR HGB CONC 33.5 G/dL (31.0-37.0); MEAN CORPUSCULAR VOLUME 92 fL (80-100); PLATELET COUNT (AUTO) 256 K/uL (150-450); RED BLOOD CELL COUNT(AUTO) 2.38 MIL/uL (4.00-5.20)
[2020-07-24 06:02] LABS: BILIRUBIN,TOTAL 0.8 mg/dL (0.1-1.0); CALCIUM, TOTAL 8.9 mg/dL (8.8-10.5); CREATININE 3.12 mg/dL (0.60-1.30); MAGNESIUM 2.1 mg/dL (1.80-2.40); PHOSPHORUS 4.5 mg/dL (2.5-4.9); POTASSIUM 4.4 mmol/L (3.5-5.1); TOTAL PROTEIN, SERUM 4.8 g/dL (6.4-8.2)
[2020-07-24 06:57] LABS: BAND NEUTROPHILS % (MANUAL) 10 % (0-5); LYMPHOCYTES % (MANUAL) 4 % (22-44); METAMYELOCYTES % 2 % (0-0); MONOCYTES % (MANUAL) 5 % (2-9); MYELOCYTES % 1 % (0-0); SEGMENTED NEUTROPHILS % 78 % (40-70)
[2020-07-24] MEDS: FAMOTIDINE 10 MG/ML 2 ML VIAL IVP SCH ×2 (07:57→21:20)
[2020-07-24] MEDS: CHOLECALCIFEROL (VIT D3) 1,000 UNITS [25 MCG] TABLET PO SCH (07:57)
[2020-07-24] MEDS: MULTIVITAMINS WITH MINERALS, THERAPEUTIC TABLET PO SCH (07:58)
[2020-07-24] MEDS: ASCORBIC ACID 500 MG TABLET PO SCH (07:58)
[2020-07-24] MEDS: ZINC SULFATE 220 MG CAPSULE PO SCH (07:58)
[2020-07-24] MEDS: MICONAZOLE NITRATE 2% 142 GM CREAM [BAZA] TP SCH (07:59)
[2020-07-24 08:00] VITALS: BP 150/53
[2020-07-24 08:00] LABS: % IRON SATURATION 110.1 % (22-44)
[2020-07-24] MEDS: MORPHINE SULFATE 2 MG/ML SYRINGE IVP PRN ×3 (08:41→16:31)
[2020-07-24 12:00] VITALS: BP 116/43
[2020-07-24 12:28] LABS: GLUCOSE,POINT OF CARE 164 MG/DL (70-110)
[2020-07-24] MEDS: NOREPINEPHRINE 4 MG/D5%-WATER 250 ML IV PRN (15:56)
[2020-07-24] MEDS: PROPOFOL 1000 MG/ISO-OSM 100 ML IV PRN (15:57)
[2020-07-24 16:00] VITALS: BP 102/41
[2020-07-24] MEDS ORDERED: ROCURONIUM BROMIDE 10 MG/ML 5 ML VIAL IVP ONE (16:30)
[2020-07-24] MEDS ORDERED: LORazepam 2 MG/ML VIAL ONE (17:05)
[2020-07-24] MEDS ORDERED: HEPARIN SODIUM,PORCINE 1,000 UNITS/ML VIAL IVP ONE (17:18)
[2020-07-24 18:31] LABS: GLUCOSE,POINT OF CARE 216 MG/DL (70-110)
[2020-07-24 19:57] LABS: ABG A-A DIFF O2 168.6 mmHg (10-20.0); ABG BASE EXCESS -0.2 mmol/L (-2.0-3.0); ABG CARBOXYHEMOGLOBIN 0.6 % (0.0-1.5); ABG HCO3 24.3 mmol/L (22.0-26.0); ABG METHEMOGLOBIN 0.3 % (0.0-1.5); ABG OXYGEN CONTENT 10.8 mL/dL (15.0-23.0); ABG OXYGEN SATURATION 94.9 % (95.0-98.0); ABG PCO2 40 mmHg (35-45); ABG PH 7.405 (7.35-7.450); ABG TOTAL HEMOGLOBIN 8.1 G/dL (12.0-18.0); PO2, ARTERIAL BG 70.9 mmHg (75.0-83.0); SOURCE, BLOOD GAS ARTERIAL; TEMPERATURE, FAHRENHEIT, BG 97.8 FAHREN (96.0-98.6)
[2020-07-24 20:00] VITALS: BP 167/55
[2020-07-24 20:03] LABS: O2 DEVICE,BLOOD GAS VENTILATOR (ROOM AIR); PEEP,BG 5 cm H2O; SITE, BLOOD GAS ARTERIAL LINE; SPONTANEOUS VT, BG 420 ml; VENT MODE, BG Press. Control Vent (ROOM AIR)
[2020-07-25] VITALS: BP 143/51
[2020-07-25] MEDS: MethylPREDNISolone SOD SUCC 125 MG/2 ML VIAL IVP SCH ×4 (00:30→18:24)
[2020-07-25] MEDS: HYDROCODONE/ACETAMINOPHEN 5-325 MG TABLET PO PRN ×2 (00:32→09:29)
[2020-07-25] MEDS: INSULIN LISPRO 100 UNITS/ML SQ PRN ×3 (00:33→20:00)
[2020-07-25 00:41] LABS: GLUCOSE,POINT OF CARE 201 MG/DL (70-110)
[2020-07-25 04:00] VITALS: BP 167/55
[2020-07-25] MEDS: PANTOPRAZOLE SODIUM 80 MG in SODIUM CHLORIDE 0.9% 100 ML IV SCH ×2 (05:00→16:01)
[2020-07-25 05:16] LABS: GLUCOSE,POINT OF CARE 207 MG/DL (70-110)
[2020-07-25 05:25] LABS: HEMATOCRIT 21.9 % (36-46); HEMOGLOBIN 7.3 g/dL (12.0-16.0); MEAN CORPUSCULAR HGB CONC 33.4 G/dL (31.0-37.0); MEAN CORPUSCULAR VOLUME 93 fL (80-100); PLATELET COUNT (AUTO) 238 K/uL (150-450); RED BLOOD CELL COUNT(AUTO) 2.36 MIL/uL (4.00-5.20); RED CELL DISTRIBUTION WIDTH 16.8 % (11.5-14.5)
[2020-07-25 05:36] LABS: CALCIUM, TOTAL 8.7 mg/dL (8.8-10.5); CREATININE 2.43 mg/dL (0.60-1.30); POTASSIUM 3.9 mmol/L (3.5-5.1)
[2020-07-25] MEDS ORDERED: SODIUM CHLORIDE 0.9% 500 ML IV ONE (05:53)
[2020-07-25] MEDS: DIAZEPAM 5 MG TABLET PO SCH ×2 (06:00→18:23)
[2020-07-25 06:19] LABS: BAND NEUTROPHILS % (MANUAL) 19 % (0-5); LYMPHOCYTES % (MANUAL) 1 % (22-44); MONOCYTES % (MANUAL) 3 % (2-9); MYELOCYTES % 1 % (0-0); SEGMENTED NEUTROPHILS % 76 % (40-70)
[2020-07-25 06:23] LABS: CORRECTED WHITE BLOOD COUNT 29.1 K/uL (4.5-11.0)
[2020-07-25 08:00] VITALS: BP 134/47
[2020-07-25] MEDS: FAMOTIDINE 10 MG/ML 2 ML VIAL IVP SCH ×2 (09:28→21:11)
[2020-07-25] MEDS: EPOETIN ALFA 10,000 UNITS/ML VIAL SQ SCH (09:28)
[2020-07-25] MEDS: MULTIVITAMINS WITH MINERALS, THERAPEUTIC TABLET PO SCH (09:28)
[2020-07-25] MEDS: MICONAZOLE NITRATE 2% 142 GM CREAM [BAZA] TP SCH (09:30)
[2020-07-25 12:00] VITALS: BP 113/44
[2020-07-25] MEDS: BALSAM PERU/CASTOR OIL 60 GM OINTMENT TP SCH (12:35)
[2020-07-25 13:27] LABS: GLUCOSE,POINT OF CARE 263 MG/DL (70-110)
[2020-07-25 16:00] VITALS: BP 121/47
[2020-07-25 20:00] VITALS: BP 140/52
[2020-07-25 21:17] LABS: GLUCOSE,POINT OF CARE 293 MG/DL (70-110)
[2020-07-26] VITALS: BP 143/52
[2020-07-26] MEDS: MethylPREDNISolone SOD SUCC 125 MG/2 ML VIAL IVP SCH ×4 (00:31→17:41)
[2020-07-26] MEDS: PANTOPRAZOLE SODIUM 80 MG in SODIUM CHLORIDE 0.9% 100 ML IV SCH (00:32)
[2020-07-26] MEDS ORDERED: SODIUM CHLORIDE 0.9% 250 ML IV ONE (03:47)
[2020-07-26 04:00] VITALS: BP 135/54
[2020-07-26] MEDS: INSULIN LISPRO 100 UNITS/ML SQ PRN ×4 (05:22→18:09)
[2020-07-26] MEDS: DIAZEPAM 5 MG TABLET PO SCH ×2 (05:22→17:41)
[2020-07-26 05:28] LABS: GLUCOSE,POINT OF CARE 274 MG/DL (70-110)
[2020-07-26 05:36] LABS: HEMATOCRIT 23.1 % (36-46); HEMOGLOBIN 7.7 g/dL (12.0-16.0); MEAN CORPUSCULAR HEMOGLOBIN 31.6 pg (26.0-34.0); MEAN CORPUSCULAR HGB CONC 33.3 G/dL (31.0-37.0); MEAN CORPUSCULAR VOLUME 95 fL (80-100); PLATELET COUNT (AUTO) 237 K/uL (150-450); RED BLOOD CELL COUNT(AUTO) 2.43 MIL/uL (4.00-5.20); RED CELL DISTRIBUTION WIDTH 17.5 % (11.5-14.5)
[2020-07-26 05:51] LABS: CALCIUM, TOTAL 8.2 mg/dL (8.8-10.5); CREATININE 3.01 mg/dL (0.60-1.30); POTASSIUM 3.9 mmol/L (3.5-5.1)
[2020-07-26 07:11] LABS: BAND NEUTROPHILS % (MANUAL) 17 % (0-5); LYMPHOCYTES % (MANUAL) 2 % (22-44); METAMYELOCYTES % 1 % (0-0); MONOCYTES % (MANUAL) 4 % (2-9); MYELOCYTES % 1 % (0-0); SEGMENTED NEUTROPHILS % 75 % (40-70)
[2020-07-26 07:12] LABS: WBC MORPHOLOGY TOXIC GRANULATION
[2020-07-26 07:13] LABS: PLATELET MORPHOLOGY COMMENT LARGE PLTS PRESENT
[2020-07-26 08:00] VITALS: BP 139/54
[2020-07-26] MEDS: MICONAZOLE NITRATE 2% 142 GM CREAM [BAZA] TP SCH (08:39)
[2020-07-26] MEDS: BALSAM PERU/CASTOR OIL 60 GM OINTMENT TP SCH (08:39)
[2020-07-26] MEDS: FAMOTIDINE 10 MG/ML 2 ML VIAL IVP SCH ×2 (08:39→21:20)
[2020-07-26] MEDS: MULTIVITAMINS WITH MINERALS, THERAPEUTIC TABLET PO SCH (08:39)
[2020-07-26 08:41] LABS: GLUCOSE,POINT OF CARE 268 MG/DL (70-110)
[2020-07-26] MEDS ORDERED: *CLINICAL-CEFTAZIDIME DOSING CLINICAL ONE (11:15)
[2020-07-26 12:00] VITALS: BP 130/53
[2020-07-26] MEDS: CefTAZidime PENTAHYDRATE 1 GM in DEXTROSE 5%-WATER 50 ML IV SCH (12:16)
[2020-07-26] MEDS: MetroNIDAZOLE 500 MG/NACL 100 ML IV SCH ×2 (12:16→21:20)
[2020-07-26 12:37] LABS: GLUCOSE,POINT OF CARE 252 MG/DL (70-110)
[2020-07-26 14:39] LABS: INR 1.2 (0.9-1.1); PROTHROMBIN TIME 12.2 SEC (9.4-11.6)
[2020-07-26 16:00] VITALS: BP 135/53
[2020-07-26 18:33] LABS: GLUCOSE,POINT OF CARE 229 MG/DL (70-110)
[2020-07-26 20:00] VITALS: BP 141/55
[2020-07-26 21:19] LABS: GLUCOSE,POINT OF CARE 194 MG/DL (70-110)
[2020-07-26] MEDS: PANTOPRAZOLE SODIUM 40 MG/VIAL IVP SCH (21:20)
[2020-07-26] MEDS: INSULIN GLARGINE,HUM.REC.ANLOG 100 UNITS/ML SQ SCH (21:20)
[2020-07-27 02:42] VITALS: BP 138/55
[2020-07-27] MEDS: MetroNIDAZOLE 500 MG/NACL 100 ML IV SCH ×3 (03:13→19:36)
[2020-07-27 04:00] VITALS: BP 144/58
[2020-07-27] MEDS: INSULIN LISPRO 100 UNITS/ML SQ PRN ×3 (05:04→18:21)
[2020-07-27] MEDS: MethylPREDNISolone SOD SUCC 125 MG/2 ML VIAL IVP SCH ×4 (05:12→17:57)
[2020-07-27] MEDS: DIAZEPAM 5 MG TABLET PO SCH ×2 (05:12→17:57)
[2020-07-27 05:14] LABS: GLUCOSE,POINT OF CARE 227 MG/DL (70-110)
[2020-07-27 06:07] LABS: HEMOGLOBIN 7.6 g/dL (12.0-16.0); MEAN CORPUSCULAR HEMOGLOBIN 31.3 pg (26.0-34.0); MEAN CORPUSCULAR HGB CONC 33.1 G/dL (31.0-37.0); MEAN CORPUSCULAR VOLUME 95 fL (80-100); PLATELET COUNT (AUTO) 198 K/uL (150-450); RED BLOOD CELL COUNT(AUTO) 2.44 MIL/uL (4.00-5.20); RED CELL DISTRIBUTION WIDTH 17.9 % (11.5-14.5)
[2020-07-27 07:44] LABS: BAND NEUTROPHILS % (MANUAL) 5 % (0-5); LYMPHOCYTES % (MANUAL) 4 % (22-44); MONOCYTES % (MANUAL) 3 % (2-9); SEGMENTED NEUTROPHILS % 88 % (40-70)
[2020-07-27 08:00] VITALS: BP 144/61
[2020-07-27] MEDS ORDERED: SODIUM CHLORIDE 0.9% 250 ML IV ONE (08:03)
[2020-07-27] MEDS: PANTOPRAZOLE SODIUM 40 MG/VIAL IVP SCH ×2 (08:46→19:56)
[2020-07-27] MEDS: EPOETIN ALFA 10,000 UNITS/ML VIAL SQ SCH (08:46)
[2020-07-27] MEDS: MULTIVITAMINS WITH MINERALS, THERAPEUTIC TABLET PO SCH (08:46)
[2020-07-27] MEDS: MICONAZOLE NITRATE 2% 142 GM CREAM [BAZA] TP SCH (08:47)
[2020-07-27] MEDS: BALSAM PERU/CASTOR OIL 60 GM OINTMENT TP SCH (08:47)
[2020-07-27] MEDS: FAMOTIDINE 10 MG/ML 2 ML VIAL IVP SCH ×2 (08:47→19:56)
[2020-07-27 09:16] LABS: CALCIUM, TOTAL 8.5 mg/dL (8.8-10.5); CREATININE 3.79 mg/dL (0.60-1.30); POTASSIUM 4.7 mmol/L (3.5-5.1)
[2020-07-27 09:22] LABS: ALBUMIN 1.8 g/dL (3.4-5.0); BILIRUBIN,TOTAL 0.6 mg/dL (0.1-1.0); PHOSPHORUS 4.9 mg/dL (2.5-4.9); TOTAL PROTEIN, SERUM 4.3 g/dL (6.4-8.2)
[2020-07-27] MEDS ORDERED: SODIUM CHLORIDE 0.9% 2,000 ML ONE (09:33)
[2020-07-27] MEDS: MORPHINE SULFATE 2 MG/ML SYRINGE IVP PRN ×3 (10:16→23:18)
[2020-07-27] MEDS: PROPOFOL 1000 MG/ISO-OSM 100 ML IV PRN ×2 (10:39→14:53)
[2020-07-27] MEDS ORDERED: CefTAZidime PENTAHYDRATE 1 GM in DEXTROSE 5%-WATER 50 ML IV PRN (10:45)
[2020-07-27] MEDS: NOREPINEPHRINE 4 MG/D5%-WATER 250 ML IV PRN (11:02)
[2020-07-27 12:00] VITALS: BP 99/38
[2020-07-27] MEDS: CefTAZidime PENTAHYDRATE 1 GM in DEXTROSE 5%-WATER 50 ML IV SCH (12:08)
[2020-07-27 16:00] VITALS: BP 111/50
[2020-07-27 17:26] LABS: GLUCOSE,POINT OF CARE 144 MG/DL (70-110)
[2020-07-27 19:42] LABS: GLUCOSE,POINT OF CARE 208 MG/DL (70-110)
[2020-07-27 20:00] VITALS: BP 131/71
[2020-07-27] MEDS: INSULIN GLARGINE,HUM.REC.ANLOG 100 UNITS/ML SQ SCH (20:27)
[2020-07-27 20:39] LABS: GLUCOSE,POINT OF CARE 193 MG/DL (70-110)
[2020-07-28] VITALS (9 sets, daily range): BP systolic 113–150; BP diastolic 39–72
[2020-07-28] MEDS: MethylPREDNISolone SOD SUCC 125 MG/2 ML VIAL IVP SCH ×4 (00:28→17:55)
[2020-07-28] MEDS: INSULIN LISPRO 100 UNITS/ML SQ PRN ×4 (00:34→17:53)
[2020-07-28] MEDS: MetroNIDAZOLE 500 MG/NACL 100 ML IV SCH ×3 (03:27→17:56)
[2020-07-28 05:01] LABS: GLUCOSE,POINT OF CARE 194 MG/DL (70-110)
[2020-07-28] MEDS: DIAZEPAM 5 MG TABLET PO SCH ×2 (05:49→17:55)
[2020-07-28 06:13] LABS: HEMATOCRIT 21.6 % (36-46); HEMOGLOBIN 7.6 g/dL (12.0-16.0); MEAN CORPUSCULAR HEMOGLOBIN 32.9 pg (26.0-34.0); MEAN CORPUSCULAR VOLUME 94 fL (80-100); PLATELET COUNT (AUTO) 167 K/uL (150-450); RED CELL DISTRIBUTION WIDTH 18.3 % (11.5-14.5)
[2020-07-28 06:31] LABS: ALBUMIN 1.6 g/dL (3.4-5.0); BILIRUBIN,TOTAL 0.7 mg/dL (0.1-1.0); CALCIUM, TOTAL 8.1 mg/dL (8.8-10.5); CREATININE 3.38 mg/dL (0.60-1.30); POTASSIUM 4.6 mmol/L (3.5-5.1); TOTAL PROTEIN, SERUM 4.3 g/dL (6.4-8.2)
[2020-07-28 06:59] LABS: GLUCOSE,POINT OF CARE 195 MG/DL (70-110)
[2020-07-28 07:15] LABS: BAND NEUTROPHILS % (MANUAL) 6 % (0-5); LYMPHOCYTES % (MANUAL) 3 % (22-44); MONOCYTES % (MANUAL) 4 % (2-9); PLATELET MORPHOLOGY COMMENT LARGE PLTS PRESENT; SEGMENTED NEUTROPHILS % 87 % (40-70); WBC MORPHOLOGY TOXIC GRANULATION
[2020-07-28] MEDS: HYDROCODONE/ACETAMINOPHEN 5-325 MG TABLET PO PRN ×3 (07:44→20:05)
[2020-07-28] MEDS: MULTIVITAMINS WITH MINERALS, THERAPEUTIC TABLET PO SCH (08:28)
[2020-07-28] MEDS: PANTOPRAZOLE SODIUM 40 MG/VIAL IVP SCH ×2 (08:28→20:05)
[2020-07-28] MEDS: FAMOTIDINE 10 MG/ML 2 ML VIAL IVP SCH ×2 (08:28→20:06)
[2020-07-28] MEDS: BALSAM PERU/CASTOR OIL 60 GM OINTMENT TP SCH (08:28)
[2020-07-28] MEDS: MICONAZOLE NITRATE 2% 142 GM CREAM [BAZA] TP SCH (08:28)
[2020-07-28] MEDS: [UNRECOGNIZED DRUG - REMARK] MISC SCH (09:00)
[2020-07-28] MEDS: CefTAZidime PENTAHYDRATE 1 GM in DEXTROSE 5%-WATER 50 ML IV SCH (13:21)
[2020-07-28] MEDS ORDERED: HEPARIN SODIUM,PORCINE 1,000 UNITS/ML VIAL IVP ONE (14:56)
[2020-07-28 16:33] LABS: GLUCOSE,POINT OF CARE 188 MG/DL (70-110)
[2020-07-28] MEDS: MORPHINE SULFATE 2 MG/ML SYRINGE IVP PRN (18:17)
[2020-07-28 18:44] LABS: GLUCOSE,POINT OF CARE 199 MG/DL (70-110)
[2020-07-28] MEDS: INSULIN GLARGINE,HUM.REC.ANLOG 100 UNITS/ML SQ SCH (20:06)
[2020-07-28 20:19] LABS: GLUCOSE,POINT OF CARE 208 MG/DL (70-110)
[2020-07-29] VITALS (13 sets, daily range): BP systolic 109–152; BP diastolic 52–74
[2020-07-29] MEDS: MethylPREDNISolone SOD SUCC 40 MG/ML VIAL IVP SCH ×3 (00:07→15:48)
[2020-07-29] MEDS: MORPHINE SULFATE 2 MG/ML SYRINGE IVP PRN ×4 (00:07→15:48)
[2020-07-29] MEDS: INSULIN LISPRO 100 UNITS/ML SQ PRN ×4 (00:08→18:05)
[2020-07-29 00:23] LABS: GLUCOSE,POINT OF CARE 251 MG/DL (70-110)
[2020-07-29] MEDS: HYDROCODONE/ACETAMINOPHEN 5-325 MG TABLET PO PRN ×3 (01:45→16:04)
[2020-07-29] MEDS: MetroNIDAZOLE 500 MG/NACL 100 ML IV SCH ×3 (03:19→18:03)
[2020-07-29] MEDS: DIAZEPAM 5 MG TABLET PO SCH ×2 (06:08→16:04)
[2020-07-29 06:25] LABS: GLUCOSE,POINT OF CARE 196 MG/DL (70-110)
[2020-07-29 07:38] LABS: HEMATOCRIT 22.5 % (36-46); HEMOGLOBIN 7.6 g/dL (12.0-16.0); MEAN CORPUSCULAR HEMOGLOBIN 32.2 pg (26.0-34.0); MEAN CORPUSCULAR HGB CONC 33.6 G/dL (31.0-37.0); MEAN CORPUSCULAR VOLUME 96 fL (80-100); PLATELET COUNT (AUTO) 152 K/uL (150-450); RED BLOOD CELL COUNT(AUTO) 2.35 MIL/uL (4.00-5.20); RED CELL DISTRIBUTION WIDTH 19.5 % (11.5-14.5)
[2020-07-29] MEDS: MICONAZOLE NITRATE 2% 142 GM CREAM [BAZA] TP SCH (07:54)
[2020-07-29] MEDS: BALSAM PERU/CASTOR OIL 60 GM OINTMENT TP SCH (07:54)
[2020-07-29] MEDS ORDERED: SODIUM CHLORIDE 0.9% 250 ML IV ONE (08:27)
[2020-07-29] MEDS: PANTOPRAZOLE SODIUM 40 MG/VIAL IVP SCH ×2 (08:29→20:39)
[2020-07-29] MEDS: MULTIVITAMINS WITH MINERALS, THERAPEUTIC TABLET PO SCH (08:29)
[2020-07-29] MEDS: EPOETIN ALFA 10,000 UNITS/ML VIAL SQ SCH (08:30)
[2020-07-29] MEDS: FAMOTIDINE 10 MG/ML 2 ML VIAL IVP SCH ×2 (08:30→20:39)
[2020-07-29 09:00] LABS: BAND NEUTROPHILS % (MANUAL) 10 % (0-5); LYMPHOCYTES % (MANUAL) 3 % (22-44); MONOCYTES % (MANUAL) 3 % (2-9); SEGMENTED NEUTROPHILS % 84 % (40-70)
[2020-07-29] MEDS: [UNRECOGNIZED DRUG - REMARK] MISC SCH (09:00)
[2020-07-29] MEDS ORDERED: BARIUM SULFATE 0.1% SUSPENSION 450 ML BOTTLE ONE (09:46)
[2020-07-29 10:13] LABS: CALCIUM, TOTAL 8.5 mg/dL (8.8-10.5); CREATININE 4.1 mg/dL (0.60-1.30); POTASSIUM 5.2 mmol/L (3.5-5.1)
[2020-07-29] MEDS ORDERED: BARIUM SULFATE 0.1% SUSPENSION 450 ML BOTTLE PO ONE (11:30)
[2020-07-29] MEDS: CefTAZidime PENTAHYDRATE 1 GM in DEXTROSE 5%-WATER 50 ML IV SCH (11:46)
[2020-07-29] MEDS ORDERED: SODIUM CHLORIDE 0.9% 2,000 ML ONE (15:13)
[2020-07-29 16:33] LABS: GLUCOSE,POINT OF CARE 227 MG/DL (70-110)
[2020-07-29] MEDS ORDERED: HEPARIN SODIUM,PORCINE 1,000 UNITS/ML VIAL ONE (16:36)
[2020-07-29 18:08] LABS: GLUCOSE,POINT OF CARE 149 MG/DL (70-110)
[2020-07-29] MEDS: INSULIN GLARGINE,HUM.REC.ANLOG 100 UNITS/ML SQ SCH (20:35)
[2020-07-29 21:01] LABS: GLUCOSE,POINT OF CARE 121 MG/DL (70-110)
[2020-07-30] VITALS: BP 114/66
[2020-07-30] MEDS: MethylPREDNISolone SOD SUCC 40 MG/ML VIAL IVP SCH ×2 (00:27→09:10)
[2020-07-30] MEDS: MetroNIDAZOLE 500 MG/NACL 100 ML IV SCH ×3 (03:10→18:20)
[2020-07-30 04:00] VITALS: BP 104/56
[2020-07-30] MEDS: DIAZEPAM 5 MG TABLET PO SCH ×2 (05:52→18:19)
[2020-07-30] MEDS: INSULIN LISPRO 100 UNITS/ML SQ PRN ×3 (06:07→18:19)
[2020-07-30 08:06] LABS: MEAN CORPUSCULAR VOLUME 94 fL (80-100)
[2020-07-30 08:17] VITALS: BP 104/65
[2020-07-30 08:17] LABS: HEMATOCRIT 23.6 % (36-46); HEMOGLOBIN 8.2 g/dL (12.0-16.0); MEAN CORPUSCULAR HEMOGLOBIN 32.6 pg (26.0-34.0); MEAN CORPUSCULAR HGB CONC 34.9 G/dL (31.0-37.0); PLATELET COUNT (AUTO) 123 K/uL (150-450); RED BLOOD CELL COUNT(AUTO) 2.52 MIL/uL (4.00-5.20); RED CELL DISTRIBUTION WIDTH 20.3 % (11.5-14.5)
[2020-07-30 08:22] LABS: CALCIUM, TOTAL 7.5 mg/dL (8.8-10.5); CREATININE 3.21 mg/dL (0.60-1.30); MAGNESIUM 2.1 mg/dL (1.80-2.40); PHOSPHORUS 5.1 mg/dL (2.5-4.9); POTASSIUM 4.7 mmol/L (3.5-5.1)
[2020-07-30] MEDS: [UNRECOGNIZED DRUG - REMARK] MISC SCH (08:23)
[2020-07-30] MEDS: FAMOTIDINE 10 MG/ML 2 ML VIAL IVP SCH ×2 (09:10→20:37)
[2020-07-30] MEDS: MULTIVITAMINS WITH MINERALS, THERAPEUTIC TABLET PO SCH (09:11)
[2020-07-30] MEDS: BALSAM PERU/CASTOR OIL 60 GM OINTMENT TP SCH (09:11)
[2020-07-30] MEDS: MICONAZOLE NITRATE 2% 142 GM CREAM [BAZA] TP SCH (09:11)
[2020-07-30] MEDS: PANTOPRAZOLE SODIUM 40 MG/VIAL IVP SCH ×2 (09:11→20:37)
[2020-07-30 10:27] LABS: BAND NEUTROPHILS % (MANUAL) 6 % (0-5); LYMPHOCYTES % (MANUAL) 3 % (22-44); MONOCYTES % (MANUAL) 1 % (2-9); SEGMENTED NEUTROPHILS % 90 % (40-70)
[2020-07-30 10:55] VITALS: BP 103/65
[2020-07-30 12:30] LABS: GLUCOMETER DEV NAME(LOC) 5S.1; GLUCOSE,POINT OF CARE 221 MG/DL (70-110)
[2020-07-30 12:30] LABS: GLUCOMETER DEV NAME(LOC) 5S.1; GLUCOSE,POINT OF CARE 117 MG/DL (70-110)
[2020-07-30] MEDS: INSULIN GLARGINE,HUM.REC.ANLOG 100 UNITS/ML SQ SCH ×2 (12:36→21:02)
[2020-07-30] MEDS: CefTAZidime PENTAHYDRATE 1 GM in DEXTROSE 5%-WATER 50 ML IV SCH (12:36)
[2020-07-30 15:17] VITALS: BP 122/71
[2020-07-30 20:00] VITALS: BP 122/69
[2020-07-30 20:01] LABS: GLUCOMETER DEV NAME(LOC) 5S.1; GLUCOSE,POINT OF CARE 217 MG/DL (70-110)
[2020-07-30 20:01] LABS: GLUCOMETER DEV NAME(LOC) 5S.1; GLUCOSE,POINT OF CARE 213 MG/DL (70-110)
[2020-07-30] MEDS: MORPHINE SULFATE 2 MG/ML SYRINGE IVP PRN (23:55)
[2020-07-31] VITALS (7 sets, daily range): BP systolic 99–129; BP diastolic 55–69
[2020-07-31] MEDS ORDERED: LORazepam 2 MG/ML VIAL IVP ONE (00:30)
[2020-07-31 00:56] LABS: GLUCOMETER DEV NAME(LOC) 5S.1; GLUCOSE,POINT OF CARE 186 MG/DL (70-110)
[2020-07-31] MEDS: INSULIN LISPRO 100 UNITS/ML SQ PRN ×3 (02:30→17:41)
[2020-07-31] MEDS: MetroNIDAZOLE 500 MG/NACL 100 ML IV SCH ×3 (02:34→19:47)
[2020-07-31 03:16] LABS: GLUCOMETER DEV NAME(LOC) 5S.1; GLUCOSE,POINT OF CARE 128 MG/DL (70-110)
[2020-07-31] MEDS: DIAZEPAM 5 MG TABLET PO SCH ×2 (05:32→17:47)
[2020-07-31] MEDS: MORPHINE SULFATE 2 MG/ML SYRINGE IVP PRN ×2 (06:59→21:22)
[2020-07-31] MEDS: PANTOPRAZOLE SODIUM 40 MG/VIAL IVP SCH ×2 (07:53→21:04)
[2020-07-31] MEDS: PredniSONE 20 MG TABLET PO SCH (07:54)
[2020-07-31] MEDS: FAMOTIDINE 10 MG/ML 2 ML VIAL IVP SCH ×2 (07:54→20:53)
[2020-07-31] MEDS: MULTIVITAMINS WITH MINERALS, THERAPEUTIC TABLET PO SCH (07:54)
[2020-07-31] MEDS: INSULIN GLARGINE,HUM.REC.ANLOG 100 UNITS/ML SQ SCH ×2 (07:57→21:00)
[2020-07-31 08:50] LABS: GLUCOMETER DEV NAME(LOC) 5S.1; GLUCOSE,POINT OF CARE 123 MG/DL (70-110)
[2020-07-31] MEDS: MICONAZOLE NITRATE 2% 142 GM CREAM [BAZA] TP SCH (08:58)
[2020-07-31 09:04] LABS: HEMATOCRIT 24.8 % (36-46); HEMOGLOBIN 8.1 g/dL (12.0-16.0); MEAN CORPUSCULAR HEMOGLOBIN 32.1 pg (26.0-34.0); MEAN CORPUSCULAR HGB CONC 32.6 G/dL (31.0-37.0); MEAN CORPUSCULAR VOLUME 99 fL (80-100); PLATELET COUNT (AUTO) 101 K/uL (150-450); RED BLOOD CELL COUNT(AUTO) 2.51 MIL/uL (4.00-5.20); RED CELL DISTRIBUTION WIDTH 23.9 % (11.5-14.5)
[2020-07-31 09:22] LABS: ALBUMIN 1.6 g/dL (3.4-5.0); BILIRUBIN,TOTAL 0.6 mg/dL (0.1-1.0); CALCIUM, TOTAL 8.2 mg/dL (8.8-10.5); CREATININE 4.1 mg/dL (0.60-1.30); POTASSIUM 4.7 mmol/L (3.5-5.1); TOTAL PROTEIN, SERUM 4.4 g/dL (6.4-8.2)
[2020-07-31 09:31] LABS: BAND NEUTROPHILS % (MANUAL) 7 % (0-5); LYMPHOCYTES % (MANUAL) 4 % (22-44); MONOCYTES % (MANUAL) 1 % (2-9); SEGMENTED NEUTROPHILS % 88 % (40-70); WBC MORPHOLOGY TOXIC GRANULATION
[2020-07-31] MEDS: BALSAM PERU/CASTOR OIL 60 GM OINTMENT TP SCH (09:48)
[2020-07-31] MEDS: [UNRECOGNIZED DRUG - REMARK] MISC SCH (09:48)
[2020-07-31] MEDS: LORazepam 2 MG/ML VIAL IVP PRN ×2 (10:47→21:04)
[2020-07-31] MEDS: CefTAZidime PENTAHYDRATE 1 GM in DEXTROSE 5%-WATER 50 ML IV SCH (13:40)
[2020-07-31 16:23] LABS: ABG A-A DIFF O2 371.1 mmHg (10-20.0); ABG CARBOXYHEMOGLOBIN 0.2 % (0.0-1.5); ABG HCO3 21.3 mmol/L (22.0-26.0); ABG METHEMOGLOBIN 0.5 % (0.0-1.5); ABG OXYGEN CONTENT 10.4 mL/dL (15.0-23.0); ABG OXYGEN SATURATION 95.7 % (95.0-98.0); ABG PCO2 41 mmHg (35-45); ABG PH 7.341 (7.35-7.450); PO2, ARTERIAL BG 83.8 mmHg (75.0-83.0); SOURCE, BLOOD GAS ARTERIAL; TEMPERATURE, FAHRENHEIT, BG 98.6 FAHREN (96.0-98.6)
[2020-07-31 16:26] LABS: ABG TOTAL HEMOGLOBIN 7.7 G/dL (12.0-18.0); SITE, BLOOD GAS RT RADIAL
[2020-07-31 16:27] LABS: O2 DEVICE,BLOOD GAS VENTILATOR (ROOM AIR); VENT MODE, BG Press. Control Vent (ROOM AIR)
[2020-07-31 16:28] LABS: INSPIRATORY TIME, BG 0.7 SEC; PEEP,BG 5 cm H2O; SPONTANEOUS VT, BG 494 ml
[2020-07-31 19:19] LABS: GLUCOMETER DEV NAME(LOC) 5N.1B; GLUCOSE,POINT OF CARE 111 MG/DL (70-110)
[2020-07-31 19:19] LABS: GLUCOMETER DEV NAME(LOC) 5N.1B; GLUCOSE,POINT OF CARE 145 MG/DL (70-110)
[2020-08-01] VITALS (8 sets, daily range): BP systolic 82–112; BP diastolic 47–61
[2020-08-01] MEDS: MORPHINE SULFATE 2 MG/ML SYRINGE IVP PRN ×4 (02:38→22:21)
[2020-08-01] MEDS: MetroNIDAZOLE 500 MG/NACL 100 ML IV SCH ×3 (02:39→19:22)
[2020-08-01] MEDS: DIAZEPAM 5 MG TABLET PO SCH ×2 (05:40→18:00)
[2020-08-01] MEDS: LORazepam 2 MG/ML VIAL IVP PRN ×3 (06:02→18:51)
[2020-08-01 06:15] LABS: HEMATOCRIT 22.3 % (36-46); HEMOGLOBIN 7.3 g/dL (12.0-16.0); MEAN CORPUSCULAR HGB CONC 32.6 G/dL (31.0-37.0); MEAN CORPUSCULAR VOLUME 98 fL (80-100); PLATELET COUNT (AUTO) 66 K/uL (150-450); RED BLOOD CELL COUNT(AUTO) 2.27 MIL/uL (4.00-5.20); RED CELL DISTRIBUTION WIDTH 23.3 % (11.5-14.5)
[2020-08-01 06:50] LABS: GLUCOMETER DEV NAME(LOC) 5N.1B; GLUCOSE,POINT OF CARE 128 MG/DL (70-110)
[2020-08-01 06:50] LABS: GLUCOMETER DEV NAME(LOC) 5N.1B; GLUCOSE,POINT OF CARE 104 MG/DL (70-110)
[2020-08-01 06:50] LABS: GLUCOMETER DEV NAME(LOC) 5N.1B; GLUCOSE,POINT OF CARE 113 MG/DL (70-110)
[2020-08-01 07:00] LABS: CALCIUM, TOTAL 8.2 mg/dL (8.8-10.5); CREATININE 4.64 mg/dL (0.60-1.30); MAGNESIUM 2.3 mg/dL (1.80-2.40); PHOSPHORUS 5.4 mg/dL (2.5-4.9); POTASSIUM 5.3 mmol/L (3.5-5.1)
[2020-08-01] MEDS: FAMOTIDINE 10 MG/ML 2 ML VIAL IVP SCH ×2 (08:05→20:41)
[2020-08-01] MEDS: PANTOPRAZOLE SODIUM 40 MG/VIAL IVP SCH ×2 (08:05→20:41)
[2020-08-01] MEDS: MULTIVITAMINS WITH MINERALS, THERAPEUTIC TABLET PO SCH (08:05)
[2020-08-01] MEDS: EPOETIN ALFA 10,000 UNITS/ML VIAL SQ SCH (08:14)
[2020-08-01] MEDS: PredniSONE 20 MG TABLET PO SCH (08:14)
[2020-08-01 08:37] LABS: BAND NEUTROPHILS % (MANUAL) 3 % (0-5); LYMPHOCYTES % (MANUAL) 2 % (22-44); MONOCYTES % (MANUAL) 1 % (2-9); SEGMENTED NEUTROPHILS % 94 % (40-70)
[2020-08-01] MEDS: BALSAM PERU/CASTOR OIL 60 GM OINTMENT TP SCH (09:03)
[2020-08-01] MEDS: MICONAZOLE NITRATE 2% 142 GM CREAM [BAZA] TP SCH (09:03)
[2020-08-01] MEDS: INSULIN GLARGINE,HUM.REC.ANLOG 100 UNITS/ML SQ SCH ×2 (09:14→20:47)
[2020-08-01] MEDS: [UNRECOGNIZED DRUG - REMARK] MISC SCH (10:20)
[2020-08-01] MEDS ORDERED: IOVERSOL 350 MG/ML 100 ML VIAL ONE (13:00)
[2020-08-01] MEDS ORDERED: SODIUM CHLORIDE 0.9% 100 ML ONE (13:00)
[2020-08-01] MEDS: CefTAZidime PENTAHYDRATE 1 GM in DEXTROSE 5%-WATER 50 ML IV SCH (13:18)
[2020-08-01] MEDS: MIDODRINE HCL 5 MG TABLET PO SCH ×2 (16:37→20:41)
[2020-08-01] MEDS ORDERED: HEPARIN SODIUM,PORCINE 1,000 UNITS/ML VIAL IVP ONE (16:37)
[2020-08-01] MEDS ORDERED: ALBUMIN HUMAN 25%-12.5GM/50ML IV BOTTLE IV ONE (16:37)
[2020-08-01 19:18] LABS: ABG BASE EXCESS -3.8 mmol/L (-2.0-3.0); ABG CARBOXYHEMOGLOBIN 1.1 % (0.0-1.5); ABG HCO3 21.1 mmol/L (22.0-26.0); ABG METHEMOGLOBIN 0.3 % (0.0-1.5); ABG OXYGEN CONTENT 10.8 mL/dL (15.0-23.0); ABG OXYGEN SATURATION 91.6 % (95.0-98.0); ABG OXYHEMOGLOBIN 90.3 % (94.0-100.0); ABG PCO2 58 mmHg (35-45); ABG TOTAL HEMOGLOBIN 8.4 G/dL (12.0-18.0); PO2, ARTERIAL BG 65.4 mmHg (75.0-83.0); SOURCE, BLOOD GAS ARTERIAL; TEMPERATURE, FAHRENHEIT, BG 97.5 FAHREN (96.0-98.6)
[2020-08-01 19:33] LABS: O2 DEVICE,BLOOD GAS VENTILATOR (ROOM AIR); SITE, BLOOD GAS RT RADIAL; VT, ABG 400 ml
[2020-08-01 19:34] LABS: PEEP,BG 5 cm H2O; SPONTANEOUS VT, BG 398 ml
[2020-08-01 21:42] LABS: GLUCOMETER DEV NAME(LOC) 5N.1B; GLUCOSE,POINT OF CARE 85 MG/DL (70-110)
[2020-08-01 21:42] LABS: GLUCOMETER DEV NAME(LOC) 5N.1B; GLUCOSE,POINT OF CARE 90 MG/DL (70-110)
[2020-08-01 21:42] LABS: GLUCOMETER DEV NAME(LOC) 5N.1B; GLUCOSE,POINT OF CARE 95 MG/DL (70-110)
[2020-08-02] VITALS (10 sets, daily range): BP systolic 83–130; BP diastolic 39–65
[2020-08-02] MEDS: LORazepam 2 MG/ML VIAL IVP PRN ×2 (04:15→08:51)
[2020-08-02] MEDS: MetroNIDAZOLE 500 MG/NACL 100 ML IV SCH ×3 (04:20→20:02)
[2020-08-02] MEDS: DIAZEPAM 5 MG TABLET PO SCH ×2 (05:43→18:17)
[2020-08-02] MEDS: INSULIN LISPRO 100 UNITS/ML SQ PRN ×2 (06:21→12:29)
[2020-08-02 07:20] LABS: GLUCOMETER DEV NAME(LOC) 5N.1B; GLUCOSE,POINT OF CARE 117 MG/DL (70-110)
[2020-08-02 07:20] LABS: GLUCOMETER DEV NAME(LOC) 5N.1B; GLUCOSE,POINT OF CARE 122 MG/DL (70-110)
[2020-08-02] MEDS: PANTOPRAZOLE SODIUM 40 MG/VIAL IVP SCH ×2 (07:35→20:24)
[2020-08-02] MEDS: PredniSONE 20 MG TABLET PO SCH (07:35)
[2020-08-02] MEDS: MIDODRINE HCL 5 MG TABLET PO SCH ×3 (07:36→20:24)
[2020-08-02] MEDS: MULTIVITAMINS WITH MINERALS, THERAPEUTIC TABLET PO SCH (07:36)
[2020-08-02] MEDS: FAMOTIDINE 10 MG/ML 2 ML VIAL IVP SCH ×2 (07:36→20:24)
[2020-08-02] MEDS: [UNRECOGNIZED DRUG - REMARK] MISC SCH (07:36)
[2020-08-02] MEDS: MORPHINE SULFATE 2 MG/ML SYRINGE IVP PRN (07:37)
[2020-08-02] MEDS: INSULIN GLARGINE,HUM.REC.ANLOG 100 UNITS/ML SQ SCH ×2 (08:05→21:06)
[2020-08-02] MEDS: BALSAM PERU/CASTOR OIL 60 GM OINTMENT TP SCH (08:09)
[2020-08-02] MEDS: MICONAZOLE NITRATE 2% 142 GM CREAM [BAZA] TP SCH (08:09)
[2020-08-02] MEDS ORDERED: CASPOFUNGIN ACETATE 70 MG in SODIUM CHLORIDE 0.9% 250 ML IV ONE (10:45)
[2020-08-02 12:25] LABS: ABG A-A DIFF O2 591.7 mmHg (10-20.0); ABG BASE EXCESS -6.6 mmol/L (-2.0-3.0); ABG CARBOXYHEMOGLOBIN 0.1 % (0.0-1.5); ABG HCO3 18.9 mmol/L (22.0-26.0); ABG METHEMOGLOBIN 0.4 % (0.0-1.5); ABG OXYGEN CONTENT 11.5 mL/dL (15.0-23.0); ABG OXYGEN SATURATION 90.1 % (95.0-98.0); ABG OXYHEMOGLOBIN 89.6 % (94.0-100.0); ABG PCO2 61 mmHg (35-45); ABG TOTAL HEMOGLOBIN 9.1 G/dL (12.0-18.0); PO2, ARTERIAL BG 59.9 mmHg (75.0-83.0); SOURCE, BLOOD GAS ARTERIAL; TEMPERATURE, FAHRENHEIT, BG 98.6 FAHREN (96.0-98.6)
[2020-08-02] MEDS: CefTAZidime PENTAHYDRATE 1 GM in DEXTROSE 5%-WATER 50 ML IV SCH (12:29)
[2020-08-02 12:38] LABS: ABG PH 7.171 (7.35-7.450); INSPIRATORY TIME, BG 0.7 SEC; O2 DEVICE,BLOOD GAS VENTILATOR (ROOM AIR); PEEP,BG 5 cm H2O; SITE, BLOOD GAS RT RADIAL; SPONTANEOUS VT, BG 420 ml; VENT MODE, BG Press. Control Vent (ROOM AIR)
[2020-08-02] MEDS ORDERED: PHENYLEPHRINE HCL IN 0.9% NACL 400 MCG/10 ML SYRINGE IVP ONE (13:17)
[2020-08-02] MEDS: PHENYLEPHRINE 200 MG/D5%-WATER 250 ML IV PRN (13:40)
[2020-08-02] MEDS ORDERED: DAPTOMYCIN 500 MG in SODIUM CHLORIDE 0.9% 50 ML IV SCH (18:00)
[2020-08-02 21:18] LABS: GLUCOSE,POINT OF CARE 125 MG/DL (70-110)
[2020-08-02] MEDS: HYDROCODONE/ACETAMINOPHEN 5-325 MG TABLET PO PRN (23:54)
[2020-08-03] VITALS (8 sets, daily range): BP systolic 90–102; BP diastolic 36–50
[2020-08-03] MEDS: INSULIN LISPRO 100 UNITS/ML SQ PRN (00:03)
[2020-08-03 02:18] LABS: GLUCOSE,POINT OF CARE 156 MG/DL (70-110)
[2020-08-03] MEDS: MetroNIDAZOLE 500 MG/NACL 100 ML IV SCH ×3 (04:00→19:36)
[2020-08-03] MEDS: DIAZEPAM 5 MG TABLET PO SCH ×2 (06:25→18:00)
[2020-08-03 06:29] LABS: EOSINOPHILS % (AUTO) 0.1 % (1.0-6.0); HEMATOCRIT 27.4 % (36-46); LYMPHOCYTES # (AUTO) 0.3 K/uL (1.0-4.8); LYMPHOCYTES % (AUTO) 1.2 % (22.0-44.0); MEAN CORPUSCULAR HEMOGLOBIN 32.8 pg (26.0-34.0); MEAN CORPUSCULAR HGB CONC 32.8 G/dL (31.0-37.0); MEAN CORPUSCULAR VOLUME 100 fL (80-100); MONOCYTES # (AUTO) 0.2 K/uL (0.1-1.0); MONOCYTES % (AUTO) 0.8 % (2.0-9.0); NEUTROPHILS # (AUTO) 26.7 K/uL (1.8-7.7); PLATELET COUNT (AUTO) 49 K/uL (150-450); RED BLOOD CELL COUNT(AUTO) 2.73 MIL/uL (4.00-5.20)
[2020-08-03 06:40] LABS: CREATININE 3.39 mg/dL (0.60-1.30); MAGNESIUM 2.4 mg/dL (1.80-2.40); PHOSPHORUS 6.4 mg/dL (2.5-4.9); POTASSIUM 4.7 mmol/L (3.5-5.1)
[2020-08-03 06:41] LABS: NEUTROPHILS % (AUTO) 97.9 % (40.0-70.0)
[2020-08-03 07:54] LABS: GLUCOSE,POINT OF CARE 112 MG/DL (70-110)
[2020-08-03] MEDS: FAMOTIDINE 10 MG/ML 2 ML VIAL IVP SCH ×2 (08:27→20:13)
[2020-08-03] MEDS: MULTIVITAMINS WITH MINERALS, THERAPEUTIC TABLET PO SCH (08:27)
[2020-08-03] MEDS: PredniSONE 20 MG TABLET PO SCH (08:27)
[2020-08-03] MEDS: EPOETIN ALFA 10,000 UNITS/ML VIAL SQ SCH (08:27)
[2020-08-03] MEDS: MIDODRINE HCL 5 MG TABLET PO SCH ×3 (08:28→20:13)
[2020-08-03] MEDS: PANTOPRAZOLE SODIUM 40 MG/VIAL IVP SCH ×2 (08:30→20:13)
[2020-08-03] MEDS: MICONAZOLE NITRATE 2% 142 GM CREAM [BAZA] TP SCH (08:31)
[2020-08-03] MEDS: INSULIN GLARGINE,HUM.REC.ANLOG 100 UNITS/ML SQ SCH ×2 (08:31→20:32)
[2020-08-03] MEDS: BALSAM PERU/CASTOR OIL 60 GM OINTMENT TP SCH (08:31)
[2020-08-03] MEDS: [UNRECOGNIZED DRUG - REMARK] MISC SCH (09:00)
[2020-08-03] MEDS: CASPOFUNGIN ACETATE 50 MG in SODIUM CHLORIDE 0.9% 250 ML IV SCH (11:05)
[2020-08-03] MEDS ORDERED: HEPARIN SODIUM,PORCINE 1,000 UNITS/ML 10 ML VIAL ONE (11:09)
[2020-08-03] MEDS ORDERED: HEPARIN SODIUM 1000 UNITS/NS 500 ML ONE (11:10)
[2020-08-03] MEDS ORDERED: LIDOCAINE 1%/EPI 1:200,000/PF 10 ML VIAL ONE (11:33)
[2020-08-03] MEDS ORDERED: FentaNYL CITRATE PF 100 MCG/2 ML VIAL ONE (11:58)
[2020-08-03] MEDS ORDERED: MIDAZOLAM HCL 2 MG/2 ML VIAL ONE (11:59)
[2020-08-03] MEDS ORDERED: MIDAZOLAM HCL 2 MG/2 ML VIAL IVP ONE (12:15)
[2020-08-03] MEDS ORDERED: FentaNYL CITRATE PF 100 MCG/2 ML VIAL IVP ONE (12:15)
[2020-08-03] MEDS: CefTAZidime PENTAHYDRATE 1 GM in DEXTROSE 5%-WATER 50 ML IV SCH (14:20)
[2020-08-03] MEDS ORDERED: SODIUM CHLORIDE 0.9% 2,000 ML ONE (15:30)
[2020-08-03] MEDS ORDERED: NOREPINEPHRINE 4 MG/D5%-WATER 250 ML IV ONE (15:42)
[2020-08-03 17:28] LABS: GLUCOSE,POINT OF CARE 96 MG/DL (70-110)
[2020-08-03] MEDS ORDERED: NOREPINEPHRINE 4 MG/D5%-WATER 250 ML IV PRN (17:45)
[2020-08-03] MEDS ORDERED: POTASSIUM CHLORIDE 20 MEQ ER TABLET PO ONE (18:45)
[2020-08-03] MEDS ORDERED: PHENYLEPHRINE HCL 400 MG in DEXTROSE 5%-WATER 210 ML IV PRN (20:00)
[2020-08-03] MEDS: HYDROCODONE/ACETAMINOPHEN 5-325 MG TABLET PO PRN (20:13)
[2020-08-03 21:10] LABS: GLUCOSE,POINT OF CARE 117 MG/DL (70-110)
[2020-08-03 21:10] LABS: GLUCOSE,POINT OF CARE 119 MG/DL (70-110)
[2020-08-03] MEDS: LORazepam 2 MG/ML VIAL IVP PRN (21:59)
[2020-08-03] MEDS: NOREPINEPHRINE BITARTRATE 16 MG in DEXTROSE 5%-WATER 234 ML IV PRN (22:26)
[2020-08-04] VITALS: BP 98/45
[2020-08-04] MEDS: PHENYLEPHRINE 200 MG/D5%-WATER 250 ML IV PRN ×3 (01:12→22:57)
[2020-08-04 01:13] LABS: GLUCOSE,POINT OF CARE 119 MG/DL (70-110)
[2020-08-04] MEDS: MetroNIDAZOLE 500 MG/NACL 100 ML IV SCH ×3 (03:29→18:44)
[2020-08-04 04:00] VITALS: BP 99/56
[2020-08-04 05:46] LABS: BASOPHILS % (AUTO) 0.2 % (0.0-2.0); EOSINOPHILS % (AUTO) 0.1 % (1.0-6.0); HEMATOCRIT 30.5 % (36-46); HEMOGLOBIN 9.6 g/dL (12.0-16.0); LYMPHOCYTES # (AUTO) 1.1 K/uL (1.0-4.8); MEAN CORPUSCULAR HEMOGLOBIN 32.5 pg (26.0-34.0); MEAN CORPUSCULAR HGB CONC 31.5 G/dL (31.0-37.0); MEAN CORPUSCULAR VOLUME 103 fL (80-100); MONOCYTES # (AUTO) 0.3 K/uL (0.1-1.0); NEUTROPHILS # (AUTO) 25.3 K/uL (1.8-7.7); PLATELET COUNT (AUTO) 49 K/uL (150-450); RED BLOOD CELL COUNT(AUTO) 2.96 MIL/uL (4.00-5.20)
[2020-08-04] MEDS: DIAZEPAM 5 MG TABLET PO SCH ×2 (06:12→18:44)
[2020-08-04 06:15] LABS: BILIRUBIN,TOTAL 1.2 mg/dL (0.1-1.0); CALCIUM, TOTAL 8.9 mg/dL (8.8-10.5); CREATININE 2.91 mg/dL (0.60-1.30); POTASSIUM 5.9 mmol/L (3.5-5.1); TOTAL PROTEIN, SERUM 5.1 g/dL (6.4-8.2)
[2020-08-04 06:53] LABS: NEUTROPHILS % (AUTO) 94.7 % (40.0-70.0)
[2020-08-04 07:17] LABS: GLUCOSE,POINT OF CARE 111 MG/DL (70-110)
[2020-08-04 08:00] VITALS: BP 94/50
[2020-08-04] MEDS: FAMOTIDINE 10 MG/ML 2 ML VIAL IVP SCH ×2 (08:30→21:19)
[2020-08-04] MEDS: MULTIVITAMINS WITH MINERALS, THERAPEUTIC TABLET PO SCH (08:30)
[2020-08-04] MEDS: PANTOPRAZOLE SODIUM 40 MG/VIAL IVP SCH ×2 (08:30→21:19)
[2020-08-04] MEDS: PredniSONE 20 MG TABLET PO SCH (08:30)
[2020-08-04] MEDS: MIDODRINE HCL 5 MG TABLET PO SCH ×3 (08:32→21:20)
[2020-08-04] MEDS: INSULIN GLARGINE,HUM.REC.ANLOG 100 UNITS/ML SQ SCH ×2 (08:33→21:20)
[2020-08-04] MEDS: MICONAZOLE NITRATE 2% 142 GM CREAM [BAZA] TP SCH (08:34)
[2020-08-04] MEDS: BALSAM PERU/CASTOR OIL 60 GM OINTMENT TP SCH (08:34)
[2020-08-04] MEDS: [UNRECOGNIZED DRUG - REMARK] MISC SCH (09:00)
[2020-08-04] MEDS: VASOPRESSIN 40 UNITS in DEXTROSE 5%-WATER 98 ML IV PRN (10:04)
[2020-08-04] MEDS ORDERED: DEXTROSE 50%-WATER 25 GM/50 ML SYRINGE IVP ONE (10:30)
[2020-08-04] MEDS ORDERED: INSULIN REGULAR, HUMAN 100 UNITS/ML IVP ONE (10:30)
[2020-08-04] MEDS: CefTAZidime PENTAHYDRATE 1 GM in DEXTROSE 5%-WATER 50 ML IV SCH (11:33)
[2020-08-04] MEDS: CASPOFUNGIN ACETATE 50 MG in SODIUM CHLORIDE 0.9% 250 ML IV SCH (11:33)
[2020-08-04] MEDS: NOREPINEPHRINE BITARTRATE 16 MG in DEXTROSE 5%-WATER 234 ML IV PRN (11:35)
[2020-08-04 12:00] VITALS: BP_SYST 149; BP_SYST 95; BP_DIAS 57; BP_DIAS 68
[2020-08-04 12:25] LABS: GLUCOSE,POINT OF CARE 95 MG/DL (70-110)
[2020-08-04 16:00] VITALS: BP 102/45
[2020-08-04 18:12] LABS: GLUCOSE,POINT OF CARE 105 MG/DL (70-110)
[2020-08-04 20:00] VITALS: BP 102/45
[2020-08-05] VITALS: BP 98/43
[2020-08-05] MEDS: NOREPINEPHRINE BITARTRATE 16 MG in DEXTROSE 5%-WATER 234 ML IV PRN ×2 (00:16→12:08)
[2020-08-05 01:21] LABS: GLUCOSE,POINT OF CARE 103 MG/DL (70-110)
[2020-08-05] MEDS ORDERED: SODIUM CHLORIDE 0.9% 250 ML IV ONE (02:02)
[2020-08-05] MEDS: MetroNIDAZOLE 500 MG/NACL 100 ML IV SCH ×2 (02:07→10:53)
[2020-08-05 04:00] VITALS: BP 100/47
[2020-08-05] MEDS: VASOPRESSIN 40 UNITS in DEXTROSE 5%-WATER 98 ML IV PRN (05:07)
[2020-08-05] MEDS: DIAZEPAM 5 MG TABLET PO SCH (05:33)
[2020-08-05 06:47] LABS: GLUCOSE,POINT OF CARE 90 MG/DL (70-110)
[2020-08-05 08:00] VITALS: BP 104/46
[2020-08-05] MEDS: PredniSONE 20 MG TABLET PO SCH (08:16)
[2020-08-05] MEDS: PANTOPRAZOLE SODIUM 40 MG/VIAL IVP SCH (08:16)
[2020-08-05] MEDS: MULTIVITAMINS WITH MINERALS, THERAPEUTIC TABLET PO SCH (08:16)
[2020-08-05] MEDS: MIDODRINE HCL 5 MG TABLET PO SCH (08:16)
[2020-08-05] MEDS: EPOETIN ALFA 10,000 UNITS/ML VIAL SQ SCH (08:16)
[2020-08-05] MEDS: INSULIN GLARGINE,HUM.REC.ANLOG 100 UNITS/ML SQ SCH (08:17)
[2020-08-05] MEDS: FAMOTIDINE 10 MG/ML 2 ML VIAL IVP SCH (08:17)
[2020-08-05] MEDS: MICONAZOLE NITRATE 2% 142 GM CREAM [BAZA] TP SCH (08:18)
[2020-08-05] MEDS: BALSAM PERU/CASTOR OIL 60 GM OINTMENT TP SCH (08:18)
[2020-08-05] MEDS: [UNRECOGNIZED DRUG - REMARK] MISC SCH (09:00)
[2020-08-05] MEDS: PHENYLEPHRINE 200 MG/D5%-WATER 250 ML IV PRN (10:52)
[2020-08-05] MEDS: CASPOFUNGIN ACETATE 50 MG in SODIUM CHLORIDE 0.9% 250 ML IV SCH (10:52)
[2020-08-05 12:00] VITALS: BP 95/49
[2020-08-05] MEDS: CefTAZidime PENTAHYDRATE 1 GM in DEXTROSE 5%-WATER 50 ML IV SCH (12:07)
[2020-08-05 12:08] VITALS: BP 95/49
[2020-08-05] MEDS ORDERED: MORPHINE SULFATE 4 MG/ML SYRINGE IVP ONE (13:00)
[2020-08-05] MEDS ORDERED: ALBUMIN HUMAN 25%-12.5GM/50ML IV BOTTLE IV ONE (16:53)
[2020-08-05] MEDS ORDERED: HEPARIN SODIUM,PORCINE 1,000 UNITS/ML VIAL IVP ONE (16:53)
[2020-08-05 20:06] LABS: GLUCOSE,POINT OF CARE 77 MG/DL (70-110)
== END 2020-08-05 17:15 | DRG 4 ==
LOC: EMS 22:09 → 5N 06-23 02:35 → ICUN 06-26 18:22 → ICU 07-04 09:54 → ICUN 07-04 12:32 → ICU 07-10 11:30 → 5N 07-29 22:40 → ICU 08-02 11:20
PROVIDERS: ADMIT Hospitalist; ATTEND Hospitalist
PROC: XW033E5 Introduction of Remdesivir Anti-infective into Peripheral Vein, Percutaneous Approach, New Technology Group 5 (ICD-10-PCS; 2020-06-23)
PROC: 04HY32Z Insertion of Monitoring Device into Lower Artery, Percutaneous Approach (ICD-10-PCS; 2020-06-24)
PROC: 5A1955Z Respiratory Ventilation, Greater than 96 Consecutive Hours (ICD-10-PCS; 2020-06-28)
PROC: 0BH17EZ Insertion of Endotracheal Airway into Trachea, Via Natural or Artificial Opening (ICD-10-PCS; 2020-06-28)
PROC: 5A1955Z Respiratory Ventilation, Greater than 96 Consecutive Hours (ICD-10-PCS; 2020-07-12)
PROC: 0BH17EZ Insertion of Endotracheal Airway into Trachea, Via Natural or Artificial Opening (ICD-10-PCS; 2020-07-12)
PROC: 06HM33Z Insertion of Infusion Device into Right Femoral Vein, Percutaneous Approach (ICD-10-PCS; 2020-07-14)
PROC: B54BZZA Ultrasonography of Right Lower Extremity Veins, Guidance (ICD-10-PCS; 2020-07-14)
PROC: 5A1D70Z Performance of Urinary Filtration, Intermittent, Less than 6 Hours Per Day (ICD-10-PCS; 2020-07-20)
PROC: 5A1D70Z Performance of Urinary Filtration, Intermittent, Less than 6 Hours Per Day (ICD-10-PCS; 2020-07-20)
PROC: 5A1D70Z Performance of Urinary Filtration, Intermittent, Less than 6 Hours Per Day (ICD-10-PCS; 2020-07-20)
PROC: 5A1D70Z Performance of Urinary Filtration, Intermittent, Less than 6 Hours Per Day (ICD-10-PCS; 2020-07-20)
PROC: 5A1D70Z Performance of Urinary Filtration, Intermittent, Less than 6 Hours Per Day (ICD-10-PCS; 2020-07-20)
PROC: 5A1D70Z Performance of Urinary Filtration, Intermittent, Less than 6 Hours Per Day (ICD-10-PCS; 2020-07-20)
PROC: 5A1D70Z Performance of Urinary Filtration, Intermittent, Less than 6 Hours Per Day (ICD-10-PCS; 2020-07-20)
PROC: 5A1D70Z Performance of Urinary Filtration, Intermittent, Less than 6 Hours Per Day (ICD-10-PCS; 2020-07-20)
PROC: 5A1D70Z Performance of Urinary Filtration, Intermittent, Less than 6 Hours Per Day (ICD-10-PCS; 2020-07-20)
PROC: 5A1D70Z Performance of Urinary Filtration, Intermittent, Less than 6 Hours Per Day (ICD-10-PCS; 2020-07-20)
PROC: 5A1D70Z Performance of Urinary Filtration, Intermittent, Less than 6 Hours Per Day (ICD-10-PCS; 2020-07-20)
PROC: 0B113F4 Bypass Trachea to Cutaneous with Tracheostomy Device, Percutaneous Approach (ICD-10-PCS; principal; 2020-07-24)
PROC: 0BJ08ZZ Inspection of Tracheobronchial Tree, Via Natural or Artificial Opening Endoscopic (ICD-10-PCS; 2020-07-24)
PROC: 05HY33Z Insertion of Infusion Device into Upper Vein, Percutaneous Approach (ICD-10-PCS; 2020-07-25)
PROC: B54NZZA Ultrasonography of Left Upper Extremity Veins, Guidance (ICD-10-PCS; 2020-07-25)
PROC: 0DH63UZ Insertion of Feeding Device into Stomach, Percutaneous Approach (ICD-10-PCS; 2020-07-26)
PROC: 30233N1 Transfusion of Nonautologous Red Blood Cells into Peripheral Vein, Percutaneous Approach (ICD-10-PCS; 2020-08-01)
PROC: 0JH63XZ Insertion of Tunneled Vascular Access Device into Chest Subcutaneous Tissue and Fascia, Percutaneous Approach (ICD-10-PCS; 2020-08-03)
PROC: 02HV33Z Insertion of Infusion Device into Superior Vena Cava, Percutaneous Approach (ICD-10-PCS; 2020-08-03)
PROC: B5181ZA Fluoroscopy of Superior Vena Cava using Low Osmolar Contrast, Guidance (ICD-10-PCS; 2020-08-03)
PROC: B548ZZA Ultrasonography of Superior Vena Cava, Guidance (ICD-10-PCS; 2020-08-03)
DX: A41.89 Other specified sepsis (principal); U07.1 COVID-19; J12.82 Pneumonia due to coronavirus disease 2019; E43 Unspecified severe protein-calorie malnutrition; N17.0 Acute kidney failure with tubular necrosis; J80 Acute respiratory distress syndrome; N18.6 End stage renal disease; E87.1 Hypo-osmolality and hyponatremia; R57.9 Shock, unspecified; Z99.11 Dependence on respirator [ventilator] status; G93.40 Encephalopathy, unspecified; I13.2 Hypertensive heart and chronic kidney disease with heart failure and with stage 5 chronic kidney disease, or end stage renal disease; Z51.5 Encounter for palliative care; Z66 Do not resuscitate; I50.9 Heart failure, unspecified; E11.22 Type 2 diabetes mellitus with diabetic chronic kidney disease; E78.5 Hyperlipidemia, unspecified; K29.60 Other gastritis without bleeding; D63.8 Anemia in other chronic diseases classified elsewhere; E66.9 Obesity, unspecified; R34 Anuria and oliguria; K80.20 Calculus of gallbladder without cholecystitis without obstruction; E87.6 Hypokalemia; R13.10 Dysphagia, unspecified; J98.2 Interstitial emphysema; Z99.2 Dependence on renal dialysis; Z68.26 Body mass index [BMI] 26.0-26.9, adult; Z91.15 Patient's noncompliance with renal dialysis
CPT/HCPCS: 36245; 36561; 36569; 36600; 70450; 70551; 71250; 71275; 72192; 74150; 76000; 76937; 82728; 82805; 82948; 83540; 83550; 83605; 83615; 83735; 84100; 84145; 85379; 86140; 86850; 86900; 86901; 86923; 87040; 87070; 87081; 87086; 87205; 87340; 87426; 90686; 90935; 92610; 93005; 93306; 94002; 94003; 99291; A9575; C9113; G0238; G0378; J0456; J0637; J0690; J0696; J0713; J0878; J0885; J1644; J1815; J2060; J2250; J2270; J2370; J2543; J2704; J2920; J2930; J3010; J3370; J3480; J3490; J7030; J7040; J7050; J7060; J8540; P9016; P9046; P9047; 36415-L1; 36415-TC; 71045-TC; G0008; U0003